=== PATIENT | female | born 1940 | race Caucasian/White ===

== ENCOUNTER 2018-07-22 11:39 | Observation (INO) | payer OTHER, MEDICARE ==
--- OUTSIDE RECORDS SUMMARY | 2018-07-22 12:08 | XMS REPORT ---
:1940 Author Organization [facility] Address [address] [place] [address] Dr. Bennett [address] [place] [id number] Care Team Providers Name Role Phone Unavailable Unavailable Unavailable Problems This patient has no known problems. Allergies, Adverse Reactions, Alerts This patient has no known allergies or adverse reactions. Medications This patient has no known medications.
[2018-07-22] MEDS ORDERED: GLUCAGON 1 MG/VIAL IM PRN (12:55)
[2018-07-22] MEDS ORDERED: D50W 25 GM/50 ML SYRINGE IV PRN (12:55)
[2018-07-22 13:00] LABS: Absolute Lymphocytes (CBC) 3.3 K/uL (0.7-4.9); Absolute Monocytes 0.9 K/uL (0.1-1.3); Absolute Neutrophil 8.4 K/uL (1.8-8.0); Basophils % 1.3 % (0-1.3); Eosinophils % 1.3 % (0-4.4); Hematocrit 37.8 % (36.0-45.0); Lymphocytes % 25.6 % (15.3-44.8)
[2018-07-22 13:20] LABS: Albumin 3.6 g/dL (3.4-5.0); Bilirubin Total 0.3 mg/dL (0.2-1.0); Potassium 3.8 mmol/L (3.5-5.1)
[2018-07-22] MEDS ORDERED: VANCOMYCIN 1.75 GM in NA CHLORIDE 0.9% 500 ML IVPB ONE (14:00)
[2018-07-22] MEDS: INSULIN -REGULAR HUMAN 50 UNIT/0.5 ML ML SQ SCH ×2 (18:43→21:29)
[2018-07-22] MEDS: GABAPENTIN 300 MG CAP PO SCH (21:00)
[2018-07-22] MEDS: OXcarbazepine 150 MG TAB PO SCH (21:00)
[2018-07-22] MEDS: levETIRAcetam 500 MG TAB PO SCH (21:00)
[2018-07-23 01:31] LABS: Urine Appearance CLEAR; Urine Bilirubin NEGATIVE (NEG); Urine Blood NEGATIVE (NEG); Urine Color YELLOW; Urine Glucose 3+ (NEG); Urine Protein NEGATIVE (NEG); Urine Urobilinogen 0.2 mg/dL (0.2-1.0); Urine pH 5.5 (5.0-7.0)
[2018-07-23 01:40] LABS: Urine Microscopic Reflex ORDER UMIC
[2018-07-23 02:21] LABS: Urine Bacteria >50 /HPF (<20); Urine Culture Reflex Order REFLEXED; Urine RBC NONE SEEN /HPF (NONE SEEN)
[2018-07-23] MEDS ORDERED: LEVOTHYROXINE SOD 0.05 MG TABLET PO SCH (06:30)
[2018-07-23] MEDS ORDERED: HOME MED 1 EA UNK (Dapagliflozin Propanediol [Farxiga] 10 MG) PO SCH (09:00)
[2018-07-23] MEDS: OXcarbazepine 150 MG TAB PO SCH ×2 (09:00→20:59)
[2018-07-23] MEDS: METOPROLOL XL 50 MG TAB PO SCH (09:00)
[2018-07-23] MEDS ORDERED: VALSARTAN 80 MG TAB PO SCH (09:00)
[2018-07-23] MEDS: GABAPENTIN 300 MG CAP PO SCH ×3 (09:00→21:00)
[2018-07-23] MEDS: levETIRAcetam 500 MG TAB PO SCH (09:00)
[2018-07-23] MEDS ORDERED: hydroCHLOROthiazide 25 MG TAB PO SCH (09:00)
[2018-07-23] MEDS ORDERED: VALSARTAN 160 MG TAB PO SCH (09:00)
[2018-07-23] MEDS ORDERED: ASPIRIN 81 MG CHEWABLE TABLET PO SCH (09:00)
[2018-07-23] MEDS ORDERED: [UNRECOGNIZED DRUG - OTHER] PO SCH (09:00)
[2018-07-23] MEDS: INSULIN -REGULAR HUMAN 50 UNIT/0.5 ML ML SQ SCH ×4 (09:18→20:58)
--- NOTE | 2018-07-23 10:34 | RAD REPORT ---
EXAM DESCRIPTION: RAD - Foot Right 3 View - 07/23/2018 10:26 am CLINICAL HISTORY: Right foot pain FINDINGS: No fracture or dislocation is seen No bony destructive lesions seen. Small calcaneal spur
[2018-07-23] MEDS ORDERED: VANCOMYCIN 1.5 GM in NA CHLORIDE 0.9% 500 ML IVPB SCH (14:00)
[2018-07-23] MEDS ORDERED: OXcarbazepine 150 MG TAB PO SCH (17:00)
[2018-07-23] MEDS: ENOXAPARIN 30 MG/0.3 ML SQ SCH (17:06)
--- NOTE | 2018-07-23 18:44 | HP ---
Date of Admission: 07/22/2018 Chief Complaint: Pain, foot. History Of Present Illness: A 77-year-old female was walking with a special shoe in [place]. She noticed that she was having pain and redness. She was brought to the office when she was found to have [id number] cellulitis of the big toe and distal foot. She is a diabetic, on medicati ons. In view of her high-risk status, the patient is admitted for IV antibiotic therapy. The patien t denied any history of fever, chills, rigors. Past Medical History: Positive for type 2 diabetes, neuropathy, seizure disorder, hypertension. Family History: Noncontributory. Personal History: No known allergies. Home Medicines: Please refer to the chart. Review of Systems: No chest pain. Physical Examination: General: Revealed a 77-year-old female, obese. Temperature normal. HEENT: Negative. Neck: Supple. JVD negative. Chest: Clear. Heart: Regular. Abdomen: Pendulous, nontender. Extremities: There is diffuse area of redness, blister formation, and cellulitis of the foot. Pedal pulse is normal. Laboratory Data: White count 12.9. Chem profile; random blood sugar of 207, creatinine 1.16. Assessment: 1.Cellulitis, foot. 2.Type 2 diabetes. 3.Neuropathy. 4.Hypertension. 5.Seizure disorder. Plan: IV vancomycin. Follow the patient clinically. ANTHONY/TEDDY Voice ID: [id number]
[2018-07-23] MEDS: KEPPRA 500 MG PO SCH (20:59)
[2018-07-24] MEDS: SYNTHROID 0.05 MG PO SCH (05:41)
[2018-07-24] MEDS: OXcarbazepine 150 MG TAB PO SCH ×2 (09:00→20:32)
[2018-07-24] MEDS: [UNRECOGNIZED DRUG - OTHER] PO SCH (09:00)
[2018-07-24] MEDS ORDERED: VANCOMYCIN 1.5 GM in NA CHLORIDE 0.9% 500 ML IVPB SCH (09:00)
[2018-07-24] MEDS: KEPPRA 500 MG PO SCH ×2 (09:00→20:32)
[2018-07-24] MEDS: METOPROLOL XL 50 MG TAB PO SCH (09:00)
[2018-07-24] MEDS: GABAPENTIN 300 MG CAP PO SCH ×2 (09:00→20:32)
[2018-07-24] MEDS: INSULIN -REGULAR HUMAN 50 UNIT/0.5 ML ML SQ SCH ×4 (09:48→21:28)
[2018-07-24] MEDS: ENOXAPARIN 30 MG/0.3 ML SQ SCH (17:00)
[2018-07-24] MEDS ORDERED: OXCARBAZEPINE 150 MG PO SCH (17:00)
--- NOTE | 2018-07-24 18:17 | PN ---
The patient is doing better. She is able to bend the big toe. The area of redness has diminished in size. The patient will have another dose of vancomycin, then she will be discharged on oral antibio tics. ANTHONY/TEDDY Voice ID: [id number] Report ID: [id number]
[2018-07-25] MEDS: SYNTHROID 0.05 MG PO SCH (05:51)
[2018-07-25] MEDS: GABAPENTIN 300 MG CAP PO SCH (09:00)
[2018-07-25] MEDS: KEPPRA 500 MG PO SCH (09:00)
[2018-07-25] MEDS: OXcarbazepine 150 MG TAB PO SCH ×2 (09:00→09:46)
[2018-07-25] MEDS: METOPROLOL XL 50 MG TAB PO SCH (09:00)
[2018-07-25] MEDS ORDERED: VANCOMYCIN 1.5 GM in NA CHLORIDE 0.9% 500 ML IVPB SCH (09:00)
[2018-07-25] MEDS: [UNRECOGNIZED DRUG - OTHER] PO SCH (09:00)
[2018-07-25] MEDS: INSULIN -REGULAR HUMAN 50 UNIT/0.5 ML ML SQ SCH ×2 (09:45→11:30)
--- NOTE | 2018-07-25 13:30 | RAD REPORT ---
EXAM DESCRIPTION: RAD - Chest Single View - 07/23/2018 5:26 am CLINICAL HISTORY: PICC line placement. COMPARISON: None. TECHNIQUE: AP Chest. FINDINGS: Right subclavian PICC line is in the upper aspect of the superior vena cava. No pneumothor ax Heart is normal in size. Mild aortic atherosclerosis. Normal pulmonary vascularity. Lungs and pleural spaces are clear. IMPRESSION: 1. Right subclavian PICC line is in the upper aspect of the superior vena cava. No pneum othorax. Electronically signed by: Terra Nunn DO 07/23/2018 5:32 AM CDT Due to temporary technical issues with the PACS/Fluency reporting system, reports are being signed by the in house radiologist as a courtesy to ensure prompt reporting. The interpreting radiologist is f ully responsible for the content of the report.
--- NOTE | 2018-08-03 05:24 | DS ---
Date of Discharge: 07/25/2018 Final Diagnoses: 1.Cellulitis of foot, right side. 2.Type 2 diabetes. 3.Peripheral neuropathy. 4.Hypertension. 5.Seizure disorder. Hospital Course: This patient was admitted because of extensive cellulitis of the foot and she had a lso type 2 diabetes. She was treated aggressively with repeat IV vancomycin. The patient was restar osmani on medication. She received insulin as per the blood sugars. The patient showed improvement of the redness, swelling as well as pain over the next 3 days and she was discharged home on clindamycin to have outpatient followup. Laboratory Data: Please refer to the chart. ANTHONY/TEDDY Voice ID: [id number] Report ID: [id number]
== END 2018-07-25 13:40 | disposition home or self-care (01) ==
LOC: INTOOBSV 12:02 → 4TH 12:02 → UNDOADMIN 12:02
PROVIDERS: ADMIT Internal Medicine; ATTEND Internal Medicine
PROC: 02HV33Z Insertion of Infusion Device into Superior Vena Cava, Percutaneous Approach (ICD-10-PCS; principal; 2018-07-23)
DX: L03.115 Cellulitis of right lower limb (principal); E11.40 Type 2 diabetes mellitus with diabetic neuropathy, unspecified; I10 Essential (primary) hypertension; G40.909 Epilepsy, unspecified, not intractable, without status epilepticus; I70.0 Atherosclerosis of aorta; M77.31 Calcaneal spur, right foot
CPT/HCPCS: 36569; 96365 ×2; 96367 ×2; 87088; 85025; 87086; 36415 ×2; 82962 ×12; 80202; 80053; 71045; 73630; G0379; J1650; G0378; 81003; 81015

== ENCOUNTER 2021-02-14 11:14 | Observation (INO) | payer OTHER, MEDICARE ==
--- OUTSIDE RECORDS SUMMARY | 2021-02-14 11:28 | XMS REPORT | Continuity of Care Document ---
:[address] [facility] t Address [address] [place] [address] Care Team Providers Name Role Phone Ruth Ann CUELLAR, R Primary Care Physician Bri CHERRY Attending Clinician Unavailable Bri CHERRY Attending Clinician Unavailable MARCOS Attending Clinician Unavailable Yong CUELLAR Attending Clinician [facility] Attending Clinician Unavailable YONG Attending Clinician Unavailable KIMBERLEY Attending Clinician Unavailable Jeannie LOCK Attending Clinician Unavailable Birgit MARCANO Attending Clinician Unavailable Kenna BRANCH Attending Clinician Loren Whipple MD Attending Clinician Brandi TAMAYO Attending Clinician Chino CUELLAR, K.H. Attending Clinician CHINO, K.H. Attending Clinician Unavailable Valentin Christie DO Attending Clinician Marcos CUELLAR Attending Clinician Doctor Unassigned, Name Attending Clinician Unavailable Jeannie Lock MD Attending Clinician Loren Whipple MD Admitting Clinician Payers Payer Name Policy Type Policy Number Effective Date Expiration Date S edd MEDICARE PART A \\T\\ [id number] 2006 B 00:00:00 [facility] [id number] 2018 MEDICARE SUPPLEMENT 00:00:00 Problems Condition Condition Condition Status Onset Resolution Last Treating Co mments Source Name Details Category Date Date Treatment Clinician Date Atrial Atrial Disease Active [facility] fibrillati fibrillati 10-07 it y of on with on with 00:00: [place] RVR RVR 00 Medical Branch No known No known Disease Unive rs active active ity of problems problems [facility] Allergies, Adverse Reactions, Alerts Allergy Allergy Status Severity Reaction(s) Onset Inactive Treating Comm ents Source Name Type Date Date Clinician Celecoxi Propensi Active Itching Unive rs b ty to 08-06 ity of adverse 00:00: [place] reaction 00 Medical s Branch CELECOXI DRUG Active ITCHING Univers B INGREDI 08-06 ity of 00:00: [place] 00 Medical Branch NO KNOWN Drug Active Univers ALLERGIE Class ity of S [facility] Social History Social Habit Start Date Stop Date Quantity Comments Source Exposure to Not sure [facility] SARS-CoV-2 (event) [facility] Tobacco use and 2020-10-30 2020-10-30 Never used [facility] exposure 00:00:00 00:00:00 [facility] Sex Assigned At [birth year] [facility] 00:00:00 00:00:00 [facility] Smoking Status Start Date Stop Date Source Unknown if ever smoked [facility] Never smoker [facility] Former smoker 2020-10-02 00:00:00 2020-10-02 00:00:00 [facility] Medications Ordered Filled Start Stop Current Ordering Indication Dosage Frequency Signature Comments Components Source Medication Medication Date Date Medication? Clinician (SIG) Name Name magnesium Yes [id number] 400mg Take 400 Univers oxide 400 8-27 mg by ity of mg 00:00: mouth 2 [place] magnesium 00 (two) Medical Tab times Branch daily. magnesium Yes [id number] 400mg Take 400 [facility] oxide 400 8-27 mg by ity of mg 00:00: mouth 2 [place] magnesium 00 (two) Medical Tab times Branch daily. metoprolol Yes [id number] 25mg Take 1 [place] tartrate 25 8-25 tablet by ity of mg tablet 00:00: mouth 2 [place] 00 (two) Medical times Branch daily. metoprolol Yes [id number] 25mg Take 1 [place] tartrate 25 8-25 tablet by ity of mg tablet 00:00: mouth 2 [place] 00 (two) Medical times Branch daily. metoprolol 0 Yes [id number] 25mg Take 1 [place] tartrate 25 8-25 tablet by ity of mg tablet 00:00: mouth 2 [place] 00 (two) Medical times Branch daily. metoprolol 0 Yes [id number] 25mg Take 1 [place] tartrate 25 8-25 tablet by ity of mg tablet 00:00: mouth 2 [place] 00 (two) Medical times Branch daily. metoprolol 0 Yes [id number] 25mg Take 1 [place] tartrate 25 8-25 tablet by ity of mg tablet 00:00: mouth 2 [place] 00 (two) Medical times Branch daily. metoprolol 0 Yes [id number] 25mg Take 1 [place] tartrate 25 8-25 tablet by ity of mg tablet 00:00: mouth 2 [place] 00 (two) Medical times Branch daily. telmisartan Yes 1{tbl} Take 1 [place] -hydrochlor 8-06 tablet by ity of othiazide 00:22: mouth [place] 80-25 mg 32 daily. Medical per tablet Branch glimepiride Yes 4mg Take 4 mg U nivers 4 mg tablet 806 by mouth 2 it y of 00:22: (two) [place] 32 times Medical daily. Branch OXcarbazepi Yes Take by Un [place] ne 150 mg 8-06 mouth 2 ity of tablet 00:22: (two) [place] 32 times Medical daily. Branch levETIRAcet Yes 500mg Take 500 U nivers am 500 mg 8-06 mg by ity of tablet 00:22: mouth 2 [place] [address] (two) Medical times Branch daily. aspirin 81 2020-0 Yes 81mg Take 81 mg U nivers mg chewable 8-06 by mouth ity of tablet 00:22: daily. [place] [address] Medical Branch multivit-mi 0 Yes Take by Un [place] nerals/foli 8-06 mouth. ity of c acid 00:22: [place] ([facility] Medical VITAMINTS Branch ORAL) metformin 2020-0 Yes Take by Univ ers HCl 8-06 mouth. ity of (METFORMIN 00:22: [place] ORAL) Medical Branch gabapentin 2021-0 Yes Take by Uni vers ER 300 mg 8-06 mouth ity of tablet, 00:22: daily. [place] [address] Medical release 24 Branch hr iron Yes Take by [facility] bis-gly/FA/ 8- mouth. ity of C/B12/Ca/g[place] 00:22: [place] cc (IRON 32 Medical / ORAL) Branch levothyroxi Yes 50ug Take 50 Uni vers ne 50 mcg 8- mcg by ity of tablet 00:22: mouth [place] [address] every Medical morning. Branch taking telmisartan Yes 1{tbl} Take 1 [place] -hydrochlor 8- tablet by ity of othiazide 00:22: mouth [place] 80-25 mg 32 daily. Medical per tablet Branch glimepiride Yes 4mg Take 4 mg U nivers 4 mg tablet 8 by mouth 2 it y of 00:22: (two) [place] 32 times Medical daily. Branch OXcarbazepi Yes Take by Un [place] ne 150 mg 8- mouth 2 ity of tablet 00:22: (two) [place] [address] times Medical daily. Branch levETIRAcet Yes 500mg Take 500 U nivers am 500 mg 8- mg by ity of tablet 00:22: mouth 2 [place] [address] (two) Medical times Branch daily. aspirin 81 Yes 81mg Take 81 mg U nivers mg chewable 8-06 by mouth ity of tablet 00:22: daily. [address] Branch multivit-mi Yes Take by Un [place] nerals/foli 8- mouth. ity of c acid 00:22: [place] ([place] [address] Medical VITAMINTS Branch ORAL) metformin Yes Take by Univ ers HCl 8-06 mouth. ity of (METFORMIN 00:22: [place] ORAL) Medical Branch gabapentin Yes Take by Uni vers ER 300 mg 8-06 mouth ity of tablet, 00:22: daily. [place] [address] Medical release 24 Branch hr iron Yes Take by [facility] bis-gly/FA/ 8- mouth. ity of C/B12/Ca/[place] 00:22: [place] cc (IRON 32 Medical 25/09 ORAL) Branch levothyroxi Yes 50ug Take 50 Uni vers ne 50 mcg 8-06 mcg by ity of tablet 00:22: mouth [place] [address] every Medical morning. Branch taking telmisartan Yes 1{tbl} Take 1 [place] -hydrochlor 8-06 tablet by ity of othiazide 00:22: mouth [place] 80-25 mg 32 daily. Medical per tablet Branch glimepiride Yes 4mg Take 4 mg U nivers 4 mg tablet 8-06 by mouth 2 it y of 00:22: (two) [place] 32 times Medical daily. Branch OXcarbazepi Yes Take by Un [place] ne 150 mg 8-06 mouth 2 ity of tablet 00:22: (two) [place] [address] times Medical daily. Branch levETIRAcet Yes 500mg Take 500 U nivers am 500 mg 8-06 mg by ity of tablet 00:22: mouth 2 [place] [address] (two) Medical times Branch daily. aspirin 81 Yes 81mg Take 81 mg U nivers mg chewable 806 by mouth ity of tablet 00:22: daily. [place] [address] Medical Branch multivit-mi Yes Take by Un [place] nerals/foli 8-06 mouth. ity of c acid 00:22: [place] [facility] Branch ORAL) metformin Yes Take by Univ ers HCl 8-06 mouth. ity of (METFORMIN 00:22: [place] ORAL) Medical Branch gabapentin Yes Take by Uni vers ER 300 mg 8-06 mouth ity of tablet, 00:22: daily. [place] extended Medical release 24 Branch hr iron Yes Take by Univers bis-gly/FA/ 8-06 mouth. ity of C/B12/Ca/[place] 00:22: [place] cc (IRON Medical 25/09 ORAL) Branch levothyroxi Yes 50ug Take 50 Uni vers ne 50 mcg 8-06 mcg by ity of tablet 00:22: mouth [place] [address] every Medical morning. Branch taking telmisartan Yes 1{tbl} Take 1 [place] -hydrochlor 8-06 tablet by ity of othiazide 00:22: mouth [place] 80-25 mg 32 daily. Medical per tablet Branch glimepiride Yes 4mg Take 4 mg U nivers 4 mg tablet 806 by mouth 2 it y of 00:22: (two) [place] 32 times Medical daily. Branch OXcarbazepi Yes Take by Un [place] ne 150 mg 8-06 mouth 2 ity of tablet 00:22: (two) [place] 32 times Medical daily. Branch levETIRAcet Yes 500mg Take 500 U nivers am 500 mg 8- mg by ity of tablet 00:22: mouth 2 [place] 32 (two) Medical times Branch daily. aspirin 81 0 Yes 81mg Take 81 mg U nivers mg chewable 806 by mouth ity of tablet 00:22: daily. [place] [address] Medical Branch multivit-mi 0 Yes Take by Un [place] nerals/foli 8-06 mouth. ity of c acid 00:22: [place] ([facility] Medical VITAMINTS Branch ORAL) metformin Yes Take by Univ ers HCl 8- mouth. ity of (METFORMIN 00:22: [place] ORAL) Medical Branch gabapentin Yes Take by Uni vers ER 300 mg 8-06 mouth ity of tablet, 00:22: daily. [place] extended Medical release 24 Branch hr iron 0 Yes Take by Univers bis-gly/FA/ 8 mouth. ity of C/B12/Ca/[place] 00:22: [place] cc (IRON Medical / ORAL) Branch levothyroxi Yes 50ug Take 50 Uni vers ne 50 mcg 8 mcg by ity of tablet 00:22: mouth [place] [address] every Medical morning. Branch taking telmisartan 0 Yes 1{tbl} Take 1 [place] -hydrochlor 8- tablet by ity of othiazide 00:22: mouth [place] 80-25 mg 32 daily. Medical per tablet Branch glimepiride Yes 4mg Take 4 mg U nivers 4 mg tablet 8 by mouth 2 it y of 00:22: (two) [place] 32 times Medical daily. Branch OXcarbazepi Yes Take by Un [place] ne 150 mg 8-06 mouth 2 ity of tablet 00:22: (two) [place] 32 times Medical daily. Branch levETIRAcet 2021-0 Yes 500mg Take 500 U nivers am 500 mg 8-06 mg by ity of tablet 00:22: mouth 2 [place] [address] (two) Medical times Branch daily. aspirin 81 0 Yes 81mg Take 81 mg U nivers mg chewable 8-06 by mouth ity of tablet 00:22: daily. [place] [address] Medical Branch multivit-mi 0 Yes Take by Un [place] nerals/foli 8-06 mouth. ity of c acid 00:22: [place] ([facility] Medical VITAMINTS Branch ORAL) metformin 0 Yes Take by Univ ers HCl 8-06 mouth. ity of (METFORMIN 00:22: [place] ORAL) Medical Branch gabapentin 0 Yes Take by Uni vers ER 300 mg 8-06 mouth ity of tablet, 00:22: daily. [place] [address] Medical release 24 Branch hr iron Yes Take by [facility] bis-gly/FA/ 8-06 mouth. ity of C/B12/Ca/[place] 00:22: [place] cc (IRON Medical 25/09 ORAL) Branch levothyroxi 0 Yes 50ug Take 50 Uni vers ne 50 mcg 8-06 mcg by ity of tablet 00:22: mouth [place] [address] every Medical morning. Branch taking telmisartan 0 Yes 1{tbl} Take 1 Un [place] -hydrochlor 8-06 tablet by ity of othiazide 00:22: mouth [place] 80-25 mg 32 daily. Medical per tablet Branch glimepiride Yes 4mg Take 4 mg U nivers 4 mg tablet 8 by mouth 2 it y of 00:22: (two) [place] [address] times Medical daily. Branch OXcarbazepi 0 Yes Take by Un [place] ne 150 mg 8-06 mouth 2 ity of tablet 00:22: (two) [place] [address] times Medical daily. Branch levETIRAcet 0 Yes 500mg Take 500 U nivers am 500 mg 8-06 mg by ity of tablet 00:22: mouth 2 [place] [address] (two) Medical times Branch daily. aspirin 81 0 Yes 81mg Take 81 mg U nivers mg chewable 8-06 by mouth ity of tablet 00:22: daily. [place] [address] Medical Branch multivit-mi 0 Yes Take by Un [place] nerals/foli 8-06 mouth. ity of c acid 00:22: [place] ([place] [address] Medical VITAMINTS Branch ORAL) metformin 0 Yes Take by [facility] ers HCl 8-06 mouth. ity of (METFORMIN 00:22: [place] ORAL) Medical Branch gabapentin 0 Yes Take by Uni vers ER 300 mg 8-06 mouth ity of tablet, 00:22: daily. [place] [address] Medical release 24 Branch hr iron 0 Yes Take by [facility] bis-gly/FA/ 8- mouth. ity of C/B12/Ca/[place] 00:22: [place] cc (IRON Medical / ORAL) Branch levothyroxi 0 Yes 50ug Take 50 Uni vers ne 50 mcg 8- mcg by ity of tablet 00:22: mouth [place] [address] every Medical morning. Branch taking telmisartan 0 Yes 1{tbl} Take 1 [place] -hydrochlor 8- tablet by ity of othiazide 00:22: mouth [place] 80-25 mg 32 daily. Medical per tablet Branch glimepiride 0 Yes 4mg Take 4 mg U nivers 4 mg tablet 8 by mouth 2 it y of 00:22: (two) [place] 32 times Medical daily. Branch OXcarbazepi 0 Yes Take by Un [place] ne 150 mg 8-06 mouth 2 ity of tablet 00:22: (two) [place] 32 times Medical daily. Branch levETIRAcet 0 Yes 500mg Take 500 U nivers am 500 mg 8- mg by ity of tablet 00:22: mouth 2 [place] 32 (two) Medical times Branch daily. aspirin 81 0 Yes 81mg Take 81 mg U nivers mg chewable 8-06 by mouth ity of tablet 00:22: daily. [place] [address] Medical Branch multivit-mi 0 Yes Take by Un [place] nerals/foli 8-06 mouth. ity of c acid 00:22: [place] ([place] [address] Medical VITAMINTS Branch ORAL) metformin 2020-0 Yes Take by [facility] ers HCl 8-06 mouth. ity of (METFORMIN 00:22: [place] ORAL) Medical Branch gabapentin 2020-0 Yes Take by Uni vers ER 300 mg 8-06 mouth ity of tablet, 00:22: daily. [place] [address] Medical release 24 Branch hr iron 0 Yes Take by [facility] bis-gly/FA/ 8-06 mouth. ity of C/B12/Ca/[place] 00:22: [place] cc (IRON 32 Medical / ORAL) Branch levothyroxi 0 Yes 50ug Take 50 Uni vers ne 50 mcg 8-06 mcg by ity of tablet 00:22: mouth [place] [address] every Medical morning. Branch taking telmisartan 0 Yes 1{tbl} Take 1 Un [place] -hydrochlor 8-06 tablet by ity of othiazide 00:22: mouth [place] 80-25 mg 32 daily. Medical per tablet Branch glimepiride 0 Yes 4mg Take 4 mg U nivers 4 mg tablet 806 by mouth 2 it y of 00:22: (two) [place] [address] times Medical daily. Branch OXcarbazepi 0 Yes Take by Un [place] ne 150 mg 8-06 mouth 2 ity of tablet 00:22: (two) [place] [address] times Medical daily. Branch levETIRAcet 0 Yes 500mg Take 500 U nivers am 500 mg 8-06 mg by ity of tablet 00:22: mouth 2 [place] [address] (two) Medical times Branch daily. aspirin 81 0 Yes 81mg Take 81 mg U nivers mg chewable 8-06 by mouth ity of tablet 00:22: daily. [address] Branch multivit-mi 0 Yes Take by Un [place] nerals/foli 8-06 mouth. ity of c acid 00:22: [place] ([facility] Medical VITAMINTS Branch ORAL) metformin 0 Yes Take by [facility] ers HCl 8-06 mouth. ity of (METFORMIN 00:22: [place] ORAL) Medical Branch gabapentin 0 Yes Take by Uni vers ER 300 mg 8-06 mouth ity of tablet, 00:22: daily. [place] [address] Medical release 24 Branch hr iron 0 Yes Take by [facility] bis-gly/FA/ 8-06 mouth. ity of C/B12/Ca/[place] 00:22: [place] cc (IRON 32 Medical /7 ORAL) Branch levothyroxi 0 Yes 50ug Take 50 Uni vers ne 50 mcg 8-06 mcg by ity of tablet 00:22: mouth [place] [address] every Medical morning. Branch taking telmisartan Yes 1{tbl} Take 1 Un [place] -hydrochlor 8-06 tablet by ity of othiazide 00:22: mouth [place] 80-25 mg 32 daily. Medical per tablet Branch glimepiride Yes 4mg Take 4 mg U nivers 4 mg tablet 8-06 by mouth 2 it y of 00:22: (two) [place] 32 times Medical daily. Branch OXcarbazepi Yes Take by Un [place] ne 150 mg 8-06 mouth 2 ity of tablet 00:22: (two) [place] [address] times Medical daily. Branch levETIRAcet Yes 500mg Take 500 U nivers am 500 mg 8- mg by ity of tablet 00:22: mouth 2 [place] [address] (two) Medical times Branch daily. aspirin 81 Yes 81mg Take 81 mg U nivers mg chewable 806 by mouth ity of tablet 00:22: daily. [place] [address] Medical Branch multivit-mi Yes Take by Un [place] nerals/foli 8-06 mouth. ity of c acid 00:22: [place] ([facility] Medical VITAMINTS Branch ORAL) metformin Yes Take by Univ ers HCl 8-06 mouth. ity of (METFORMIN 00:22: [place] ORAL) Medical Branch gabapentin 0 Yes Take by Uni vers ER 300 mg 8-06 mouth ity of tablet, 00:22: daily. [place] extended Medical release 24 Branch hr iron Yes Take by Univers bis-gly/FA/ 8- mouth. ity of C/B12/Ca/[place] 00:22: [place] cc (IRON Medical 25/09 ORAL) Branch levothyroxi Yes 50ug Take 50 Uni vers ne 50 mcg 8-06 mcg by ity of tablet 00:22: mouth [place] [address] every Medical morning. Branch taking telmisartan Yes 1{tbl} Take 1 Un [place] -hydrochlor 8-06 tablet by ity of othiazide 00:22: mouth [place] 80-25 mg 32 daily. Medical per tablet Branch glimepiride Yes 4mg Take 4 mg U nivers 4 mg tablet 806 by mouth 2 it y of 00:22: (two) [place] [address] times Medical daily. Branch OXcarbazepi 0 Yes Take by Un [place] ne 150 mg 8- mouth 2 ity of tablet 00:22: (two) [place] [address] times Medical daily. Branch levETIRAcet 0 Yes 500mg Take 500 U nivers am 500 mg 8-06 mg by ity of tablet 00:22: mouth 2 [place] [address] (two) Medical times Branch daily. aspirin 81 0 Yes 81mg Take 81 mg U nivers mg chewable 8-06 by mouth ity of tablet 00:22: daily. [place] [address] Medical Branch multivit-mi Yes Take by Un [place] nerals/foli 8- mouth. ity of c acid 00:22: [place] ([place] [address] Medical VITAMINTS Branch ORAL) metformin Yes Take by Univ ers HCl 8-06 mouth. ity of (METFORMIN 00:22: [place] ORAL) Medical Branch gabapentin Yes Take by Uni vers ER 300 mg 8- mouth ity of tablet, 00:22: daily. [place] [address] Medical release 24 Branch hr iron Yes Take by Univers bis-gly/FA/ 8 mouth. ity of C/B12/Ca/[place] 00:22: [place] cc (IRON [address] [place] [address] 25/09 ORAL) Branch levothyroxi 0 Yes 50ug Take 50 Uni vers ne 50 mcg 8- mcg by ity of tablet 00:22: mouth [place] [address] every Medical morning. Branch taking hydroCHLORO 0 Yes [id number] 25mg Take 2 Univers thiazide 8-06 capsules ity of 12.5 mg 00:00: by mouth [place] capsule 00 daily. Medical Branch hydroCHLORO 0 Yes [id number] 25mg Take 2 Univers thiazide 8-06 capsules ity of 12.5 mg 00:00: by mouth [place] capsule 00 daily. Medical Branch hydroCHLORO 2020-0 Yes [id number] 25mg Take 2 Univers thiazide 8-06 capsules ity of 12.5 mg 00:00: by mouth [place] capsule 00 daily. Medical Branch hydroCHLORO 2020-0 Yes [id number] 25mg Take 2 Univers thiazide 8-06 capsules ity of 12.5 mg 00:00: by mouth [place] capsule 00 daily. Medical Branch hydroCHLORO Yes [id number] 25mg Take 2 Univers thiazide 8-06 capsules ity of 12.5 mg 00:00: by mouth [place] capsule [address] [facility] hydroCHLORO 0 Yes [id number] 25mg Take 2 Univers thiazide 8-06 capsules ity of 12.5 mg 00:00: by mouth [place] capsule [address] [facility] hydroCHLORO Yes [id number] 25mg Take 2 Univers thiazide 8-06 capsules ity of 12.5 mg 00:00: by mouth [place] capsule [address] [facility] hydroCHLORO Yes [id number] 25mg Take 2 Univers thiazide 8-06 capsules ity of 12.5 mg 00:00: by mouth [place] capsule [address] [facility] hydroCHLORO Yes [id number] 25mg Take 2 Univers thiazide 8-06 capsules ity of 12.5 mg 00:00: by mouth [place] capsule [address] [facility] hydroCHLORO Yes [id number] 25mg Take 2 Univers thiazide 8-06 capsules ity of 12.5 mg 00:00: by mouth [place] capsule [address] [facility] metoprolol Yes 12.5mg 12.5 mg, U nivers tartrate 8-05 Oral, BID, ity o f (LOPRESSOR) 01:00: First dose [place] tablet 12.5 00 on Wed Medica l mg 10/09/20 at [place] 1999, Until Discontinu ed, Routine metoprolol Yes [id number] 12.5mg Take 0.5 Univers tartrate 25 8-05 tablets by it y of mg tablet 00:00: mouth (two) [facility] daily. metoprolol Yes [id number] 12.5mg Take 0.5 Univers tartrate 25 8-05 tablets by it y of mg tablet 00:00: mouth (two) [facility] daily. metoprolol 0 Yes [id number] 12.5mg Take 0.5 Univers tartrate 25 8-05 tablets by it y of mg tablet 00:00: mouth (two) [facility] daily. metoprolol 0 Yes [id number] 12.5mg Take 0.5 Univers tartrate 25 8-05 tablets by it y of mg tablet 00:00: mouth 2 [place] 00 (two) Medical times Branch daily. metoprolol 2020- No [id number] 12.5mg Take 0.5 Univers tartrate 25 10-1025 tablets by i ty of mg tablet 00:00: 00:00 mouth 2 [place] 00 :[place] (two) Medical times Branch daily. metoprolol 2020- No [id number] 12.5mg Take 0.5 Univers tartrate 25 10-1025 tablets by i ty of mg tablet 00:00: 00:00 mouth 2 [place] 00 :[place] (two) Medical times Branch daily. metoprolol 2020- No [id number] 12.5mg Take 0.5 Univers tartrate 25 10-10 tablets by i ty of mg tablet 00:00: 00:00 mouth 2 [place] 00 :[place] (two) Medical times Branch daily. metoprolol 2020- No [id number] 12.5mg Take 0.5 Univers tartrate 25 10-1025 tablets by i ty of mg tablet 00:00: 00:00 mouth 2 [place] 00 :00 (two) Medical times Branch daily. levothyroxi Yes 50ug Take 50 Uni vers ne 50 mcg 10-09 mcg by ity of tablet 13:21: mouth [place] 20 every Medical morning. Branch taking metoprolol No 25mg 25 mg, Univ ers tartrate 10-09 Oral, ity of (LOPRESSOR) 03:45: 03:12 ONCE, 1 [place] tablet 25 00 :00 dose, [facility] Medic al mg 10/08/20 at Branch 2245, Routine metoprolol No 5mg 5 mg, Unive rs (LOPRESSOR) 10-09 Intravenou i ty of injection 5 02:36: 03:09 s, ONCE, 1 [place] mg 00 :00 dose, [facility] 10/08/20 at Branch 2145, Routine levETIRAcet Yes 1500mg 1,500 mg, Univers am (KEPPRA) 10-09 Oral, BID, it y of tablet 01:00: First dose [place] 1,500 mg 00 (after Medical last Branch modificati on) on [facility] 10/08/20 at 1999, Until Discontinu ed, Routine OXcarbazepi Yes 300mg 300 mg, Un [place] ne 10-09 Oral, QPM ity of (TRILEPTAL) 01:00: AT 1999, [place] tablet 300 00 First dose Med ical mg on [facility] 10/08/20 at 1999, Until Discontinu ed, Routine metoprolol 2020- No 5mg 5 mg, Slow Univers (LOPRESSOR) 10-08 IV Push, ity of injection 5 21:30: 20:32 ONCE, 1 [place] mg 00 :00 dose, [facility] 10/08/20 at Branch 1630, Routine magnesium 2020- No 4g 4 g, IV Univ ers sulfate in 10-08 Piggyback, it y of water 4 18:15: 19:03 ONCE, 1 [place] gram/50 mL 00 :00 dose, [facility] eloy (8 %) IV 10/08/20 at [place] Piggyback 4 1315, g Routine KCL 2020- No 40meq 40 mEq, Univers (KLOR-CON 10-08 Oral, ity of M20) tablet 17:30: 19:03 ONCE, 1 [place] 40 mEq 00 :00 dose, [facility] 10/08/20 at Branch 1230, Routine levETIRAcet 2020- No 1000mg 1,000 mg, Univers am (KEPPRA) 10-08 Oral, ONCE i ty of tablet 15:54: 16:06 NOW, 1 [place] 1,000 [facility] 00 :[facility] Branch [facility], Routine OXcarbazepi Yes 150mg 150 mg, Un [place] ne 10-08 Oral, ity of (TRILEPTAL) 15:45: DAILY, [place] tablet 150 00 First dose Med ical mg on [facility] 10/08/20 at 1045, Until Discontinu ed, Routine hydroCHLORO Yes 25mg 25 mg, Univ ers thiazide 10-08 Oral, ity of (ESIDRIX) 14:00: DAILY, [place] capsule 25 00 First dose Med ical mg on Wed10/08/20 at 0900, Until Discontinu ed, Routine enoxaparin Yes 40mg 40 mg, Unive rs (LOVENOX) 10-08 Subcutaneo ity of injection 14:00: [place], DAILY, [place] 40 mg 00 First dose Medical on Wed [place] 10/08/20 at 0900, Until Discontinu ed, Routine furosemide Yes 20mg 20 mg, Unive rs (LASIX) 10-08 Oral, ity of tablet 20 14:00: DAILY, [place] mg 00 First dose Medical on 10/08/20 at 0900, Until Discontinu ed, Routine aspirin Yes 81mg 81 mg, Univers chewable 10-08 Oral, ity of tablet 81 14:00: DAILY, [place] mg 00 First dose Medical on Wed [place] 10/08/20 at 0900, Until Discontinu ed, Routine NaCl 0.9% Yes [id number] 1000mL at 42 U nivers (NS) IV 10-08 mL/hr, ity of infusion 13:00: Intravenou Ace as 1,000 mL 00 s, Medical CONTINUOUS Branch , Starting Wed10/08/20 at 0800, Until Discontinu ed, Routine
TKO rate. Start at 0700 on day of procedure< br> telmisartan Yes 1{tbl} Take 1 [place] -hydrochlor 10-08 tablet by ity of othiazide 03:39: mouth [place] 80-25 mg 03 daily. Medical per tablet Branch glimepiride Yes 4mg Take 4 mg U nivers 4 mg tablet 10-08 by mouth 2 it y of 03:39: (two) [place] 03 times Medical daily. Branch OXcarbazepi Yes Take by Un [place] ne 150 mg 803 mouth 2 ity of tablet 03:39: (two) [place] 03 times Medical daily. Branch levETIRAcet Yes 500mg Take 500 U nivers am 500 mg 8- mg by ity of tablet 03:39: mouth 2 [place] 03 (two) Medical times Branch daily. aspirin 81 Yes 81mg Take 81 mg U nivers mg chewable 10-08 by mouth ity of tablet 03:39: daily. [place] 03 [facility] Branch multivit-mi Yes Take by rowena nerals/foli 10-08 mouth. ity of c acid 03:39: [place] (CENTRUM 03 Medical VITAMINTS Branch ORAL) metformin Yes Take by [facility] ers HCl 10-08 mouth. ity of (METFORMIN 03:39: [place] ORAL) 03 Medical Branch gabapentin Yes Take by [facility] vers ER 300 mg 10-08 mouth ity of tablet, 03:39: daily. [place] extended 03 Medical release 24 Branch hr iron Yes Take by [facility] bis-gly/FA/ 10-08 mouth. ity of C/B12/Ca/[place] 03:39: [place] cc (IRON [address] [place] [address] 25/09 ORAL) Branch Sliding Yes Subcutaneo [facility] ers Scale 10-08 us, TID ity of Insulin - 02:00: MEALS+HS, [place] as Lispro 00 First dose Medical (HumaLOG) + on [facility] 10/07/20 at Testing 2100, Until Discontinu ed, Routine atorvastati Yes 40mg 40 mg, [facility] ers n (LIPITOR) 10-08 Oral, QHS, it y of tablet 40 02:00: First dose [place] mg 00 on [facility] 10/07/20 at Branch 2100, Until Discontinu ed, Routine levETIRAcet 2020- No 500mg 500 mg, U nivers am (KEPPRA) 10-08 08-03 Oral, BID, i ty of tablet 500 01:00: 15:54 First dose [place] mg 00 :54 on [facility] 10/07/20 at Branch 2000, Until Discontinu ed, Routine ondansetron Yes 4mg 4 mg, Slow Univers (ZOFRAN 10-07 IV Push, ity of (PF)) 23:19: Q6HPRN, [place] injection 4 47 Starting Medi eloy mg [facility] 10/07/20 Branch at 1819, Until Discontinu ed, Routine, Nausea and Vomiting (N/V) acetaminoph Yes 650mg 650 mg, Un rowena en 10-07 Oral, ity of (TYLENOL) 23:19: Q6HPRN, [place] tablet 650 40 Starting Medic al mg 10/07/20 Branch at 1819, Until Discontinu ed, Routine, Pain (scale 1-3) metoprolol No 5mg 5 mg, Slow Univers (LOPRESSOR) 10-07 IV Push, ity of injection 5 21:45: 21:45 ONCE, 1 [place] mg 00 :00 dose, [facility] 10/07/20 at Branch 1645, EDUAR aspirin 2020-0 2020- No 324mg 324 mg, Unive rs chewable 10-07 Oral, ity of tablet 324 21:45: 21:45 ONCE, 1 [place] mg 00 :00 dose, [facility] 10/07/20 at Branch 1645, STAT telmisartan Yes 1{tbl} Take 1 Un rowena -hydrochlor 10-07 tablet by ity of othiazide 20:39: mouth [place] 80-25 mg 51 daily. Medical per tablet Branch glimepiride Yes 4mg Take 4 mg U nivers 4 mg tablet 10-07 by mouth 2 it y of 20:39: (two) [place] [address] times Medical daily. Branch OXcarbazepi 0 Yes Take by Un rowena ne 150 mg 10-07 mouth 2 ity of tablet 20:39: (two) [place] [address] times Medical daily. Branch levETIRAcet 0 Yes 500mg Take 500 U nivers am 500 mg 10-07 mg by ity of tablet 20:39: mouth 2 [place] [address] (two) Medical times [place] daily. aspirin 81 0 Yes 81mg Take 81 mg U nivers mg chewable 10-07 by mouth ity of tablet 20:39: daily. [place] [address] Medical Branch multivit-mi 0 Yes Take by Un rowena nerals/foli 10-07 mouth. ity of c acid 20:39: [place] (CENTRUM Medical VITAMINTS Branch ORAL) metformin 0 Yes Take by Univ ers HCl 10-07 mouth. ity of (METFORMIN 20:39: [place] ORAL) 51 Medical Branch gabapentin 0 Yes Take by Uni vers ER 300 mg 10-07 mouth ity of tablet, 20:39: daily. [place] [address] Medical release 24 Branch hr iron 0 Yes Take by [facility] bis-gly/FA/ 8- mouth. ity of C/B12/Ca/g[place]rie 20:39: [place] cc (IRON 51 Medical 21/ ORAL) Branch telmisartan Yes 1{tbl} Take 1 Un rowena -hydrochlor 8- tablet by ity of othiazide 20:39: mouth [place] 80-25 mg 51 daily. Medical per tablet Branch glimepiride Yes 4mg Take 4 mg U nivers 4 mg tablet 8- by mouth 2 it y of 20:39: (two) [place] [address] times Medical daily. Branch OXcarbazepi Yes Take by Un rowena ne 150 mg 8- mouth 2 ity of tablet 20:39: (two) [place] [address] times Medical daily. Branch levETIRAcet Yes 500mg Take 500 U nivers am 500 mg 8- mg by ity of tablet 20:39: mouth 2 [place] [address] (two) Medical times Branch daily. aspirin 81 Yes 81mg Take 81 mg U nivers mg chewable 10-07 by mouth ity of tablet 20:39: daily. [place] [address] Medical Branch multivit-mi Yes Take by Un rowena nerals/foli 8- mouth. ity of c acid 20:39: [place] [facility] ORAL) metformin Yes Take by [facility] ers HCl 8- mouth. ity of (METFORMIN 20:39: [place] ORAL) Medical Branch gabapentin Yes Take by Uni vers ER 300 mg 10-07 mouth ity of tablet, 20:39: daily. [place] extended 51 Medical release 24 Branch hr iron Yes Take by [facility] bis-gly/FA/ 8- mouth. ity of C/B12/Ca/g[place]rie 20:39: [facility] (IRON 51 Medical 21/7 ORAL) Branch telmisartan Yes 1{tbl} Take 1 Un rowena -hydrochlor 8- tablet by ity of othiazide 20:39: mouth [place] 80-25 mg 51 daily. Medical per tablet Branch glimepiride Yes 4mg Take 4 mg U nivers 4 mg tablet 10-07 by mouth 2 it y of 20:39: (two) [place] [address] times Medical daily. Branch OXcarbazepi Yes Take by Un [place] ne 150 mg 8 mouth 2 ity of tablet 20:39: (two) [place] [address] times Medical daily. Branch levETIRAcet Yes 500mg Take 500 U nivers am 500 mg 8- mg by ity of tablet 20:39: mouth 2 [place] [address] (two) Medical times Branch daily. aspirin 81 Yes 81mg Take 81 mg U nivers mg chewable 10-07 by mouth ity of tablet 20:39: daily. [place] [address] Medical Branch multivit-mi Yes Take by Un rowena nerals/foli 10-07 mouth. ity of c acid 20:39: [place] (CENTRUM Medical VITAMINTS Branch ORAL) metformin Yes Take by Univ ers HCl 10-07 mouth. ity of (METFORMIN 20:39: [place] ORAL) Medical Branch gabapentin Yes Take by Uni vers ER 300 mg 10-07 mouth ity of tablet, 20:39: daily. [place] [address] Medical release 24 Branch hr iron Yes Take by Univers bis-gly/FA/ 10-07 mouth. ity of C/B12/Ca/g[place]rie 20:39: [place] cc (IRON Medical 21/7 ORAL) Branch aspirin 81 Yes 81mg Take 81 mg U nivers mg chewable 7-28 by mouth ity of tablet 16:48: daily. [place] [address] Medical Branch aspirin 81 0 Yes 81mg Take 81 mg U nivers mg chewable 7-28 by mouth ity of tablet 16:48: daily. [place] [address] Medical Branch aspirin 81 0 Yes 81mg Take 81 mg U nivers mg chewable 7-28 by mouth ity of tablet 16:48: daily. [place] [address] Medical Branch furosemide 0 Yes 20mg Take 1 Unive rs 20 mg 6-23 tablet by ity of tablet 00:00: mouth [place] 00 daily. Medical Branch furosemide 0 Yes 20mg Take 1 Unive rs 20 mg 6-23 tablet by ity of tablet 00:00: mouth [place] 00 daily. Medical Branch furosemide 0 Yes 20mg Take 1 Unive rs 20 mg 6-23 tablet by ity of tablet 00:00: mouth [place] 00 daily. Medical Branch furosemide 2021-0 Yes 20mg Take 1 Unive rs 20 mg 6-23 tablet by ity of tablet 00:00: mouth [place] 00 daily. Medical Branch furosemide 2021-0 Yes 20mg Take 1 Unive rs 20 mg 6-23 tablet by ity of tablet 00:00: mouth [place] 00 daily. Medical Branch furosemide 2021-0 Yes 20mg Take 1 Unive rs 20 mg 6-23 tablet by ity of tablet 00:00: mouth [place] 00 daily. Medical Branch furosemide 2021-0 Yes 20mg Take 1 Unive rs 20 mg 6-23 tablet by ity of tablet 00:00: mouth [place] 00 daily. Medical Branch furosemide 2021-0 Yes 20mg Take 1 Unive rs 20 mg 6-23 tablet by ity of tablet 00:00: mouth [place] 00 daily. Medical Branch furosemide 2021-0 Yes 20mg Take 1 Unive rs 20 mg 6-23 tablet by ity of tablet 00:00: mouth [place] 00 daily. Medical Branch furosemide 2021-0 Yes 20mg Take 1 Unive rs 20 mg 6-23 tablet by ity of tablet 00:00: mouth [place] 00 daily. Medical Branch furosemide 2021-0 Yes 20mg Take 1 Unive rs 20 mg 6-23 tablet by ity of tablet 00:00: mouth [place] 00 daily. Medical Branch furosemide 2021-0 Yes 20mg Take 1 Unive rs 20 mg 6-23 tablet by ity of tablet 00:00: mouth [place] 00 daily. Medical Branch furosemide 2021-0 Yes 20mg Take 1 Unive rs 20 mg 6-23 tablet by ity of tablet 00:00: mouth [place] 00 daily. Medical Branch furosemide 2021-0 Yes 20mg Take 1 Unive rs 20 mg 6-23 tablet by ity of tablet 00:00: mouth [place] 00 daily. Medical Branch furosemide 2021-0 Yes 20mg Take 1 Unive rs 20 mg 6-23 tablet by ity of tablet 00:00: mouth [place] 00 daily. Medical Branch furosemide 2021-0 Yes 20mg Take 1 Unive rs 20 mg 6-23 tablet by ity of tablet 00:00: mouth [place] 00 daily. Medical Branch furosemide 2021-0 Yes 20mg Take 1 Unive rs 20 mg 6-23 tablet by ity of tablet 00:00: mouth [place] 00 daily. Medical Branch furosemide 2021-0 Yes 20mg Take 1 Unive rs 20 mg 6-23 tablet by ity of tablet 00:00: mouth [place] 00 daily. Medical Branch furosemide 2021-0 Yes 20mg Take 1 Unive rs 20 mg 6-23 tablet by ity of tablet 00:00: mouth [place] 00 daily. Medical Branch furosemide 2021-0 Yes 20mg Take 1 Unive rs 20 mg 6-23 tablet by ity of tablet 00:00: mouth [place] 00 daily. Medical Branch furosemide 2021-0 Yes 20mg Take 1 Unive rs 20 mg 6-23 tablet by ity of tablet 00:00: mouth [place] 00 daily. Medical Branch furosemide 2021-0 Yes 20mg Take 1 Unive rs 20 mg 6-23 tablet by ity of tablet 00:00: mouth [place] 00 daily. Medical Branch furosemide 2021-0 Yes 20mg Take 1 Unive rs 20 mg 6-23 tablet by ity of tablet 00:00: mouth [place] 00 daily. Medical Branch furosemide 2021-0 Yes 20mg Take 1 Unive rs 20 mg 6-23 tablet by ity of tablet 00:00: mouth [place] 00 daily. Medical Branch furosemide 2021-0 Yes 20mg Take 1 Unive rs 20 mg 6-23 tablet by ity of tablet 00:00: mouth [place] 00 daily. Medical Branch furosemide 2021-0 Yes 20mg Take 1 Unive rs 20 mg 6-23 tablet by ity of tablet 00:00: mouth [place] 00 daily. Medical Branch furosemide 2021-0 Yes 20mg Take 1 Unive rs 20 mg 6-23 tablet by ity of tablet 00:00: mouth [place] 00 daily. Medical Branch furosemide 2021-0 Yes 20mg Take 1 Unive rs 20 mg 6-23 tablet by ity of tablet 00:00: mouth [place] 00 daily. Medical Branch furosemide 2021-0 Yes 20mg Take 1 Unive rs 20 mg 6-23 tablet by ity of tablet 00:00: mouth [place] 00 daily. Medical Branch furosemide 2021-0 Yes 20mg Take 1 Unive rs 20 mg 6-23 tablet by ity of tablet 00:00: mouth [place] 00 daily. Medical Branch atorvastati 2021-0 Yes 40mg Take 1 Univ ers n 40 mg 6-14 tablet by ity of tablet 00:00: mouth at [place] 00 bedtime. Medical Branch atorvastati 2021-0 Yes 40mg Take 1 Univ ers n 40 mg 6-14 tablet by ity of tablet 00:00: mouth at [place] [address] bedtime. Medical Branch atorvastati 1-0 Yes 40mg Take 1 Univ ers n 40 mg 6-14 tablet by ity of tablet 00:00: mouth at [place] bedtime. Medical Branch atorvastati 1-0 Yes 40mg Take 1 Univ ers n 40 mg 6-14 tablet by ity of tablet 00:00: mouth at [place] bedtime. Medical Branch atorvastati 1-0 Yes 40mg Take 1 Univ ers n 40 mg 6-14 tablet by ity of tablet 00:00: mouth at [place] bedtime. Medical Branch atorvastati 1-0 Yes 40mg Take 1 Univ ers n 40 mg 6-14 tablet by ity of tablet 00:00: mouth at [place] bedtime. Medical Branch atorvastati 1-0 Yes 40mg Take 1 Univ ers n 40 mg 6-14 tablet by ity of tablet 00:00: mouth at [place] bedtime. Medical Branch atorvastati 1-0 Yes 40mg Take 1 Univ ers n 40 mg 6-14 tablet by ity of tablet 00:00: mouth at [place] bedtime. Medical Branch atorvastati 1-0 Yes 40mg Take 1 Univ ers n 40 mg 6-14 tablet by ity of tablet 00:00: mouth at [place] bedtime. Medical Branch atorvastati 1-0 Yes 40mg Take 1 Univ ers n 40 mg 6-14 tablet by ity of tablet 00:00: mouth at [place] bedtime. Medical Branch atorvastati 1-0 Yes 40mg Take 1 Univ ers n 40 mg 6-14 tablet by ity of tablet 00:00: mouth at [place] bedtime. Medical Branch atorvastati 1-0 Yes 40mg Take 1 Univ ers n 40 mg 6-14 tablet by ity of tablet 00:00: mouth at [place] bedtime. Medical Branch atorvastati 2021-0 Yes 40mg Take 1 Univ ers n 40 mg 6-14 tablet by ity of tablet 00:00: mouth at [place] [address] bedtime. Medical Branch atorvastati 1-0 Yes 40mg Take 1 Univ ers n 40 mg 6-14 tablet by ity of tablet 00:00: mouth at [place] [address] bedtime. Medical Branch atorvastati 2021-0 Yes 40mg Take 1 Univ ers n 40 mg 6-14 tablet by ity of tablet 00:00: mouth at [place] [address] bedtime. Medical Branch atorvastati 1-0 Yes 40mg Take 1 Univ ers n 40 mg 6-14 tablet by ity of tablet 00:00: mouth at [place] [address] bedtime. Medical Branch atorvastati 1-0 Yes 40mg Take 1 Univ ers n 40 mg 6-14 tablet by ity of tablet 00:00: mouth at [place] bedtime. Medical Branch atorvastati 1-0 Yes 40mg Take 1 Univ ers n 40 mg 6-14 tablet by ity of tablet 00:00: mouth at [place] [address] bedtime. Medical Branch atorvastati 1-0 Yes 40mg Take 1 Univ ers n 40 mg 6-14 tablet by ity of tablet 00:00: mouth at [place] [address] bedtime. Medical Branch atorvastati 1-0 Yes 40mg Take 1 Univ ers n 40 mg 6-14 tablet by ity of tablet 00:00: mouth at [place] [address] bedtime. Medical Branch atorvastati 1-0 Yes 40mg Take 1 Univ ers n 40 mg 6-14 tablet by ity of tablet 00:00: mouth at [place] [address] bedtime. Medical Branch atorvastati 1-0 Yes 40mg Take 1 Univ ers n 40 mg 6-14 tablet by ity of tablet 00:00: mouth at [place] [address] bedtime. Medical Branch atorvastati 1-0 Yes 40mg Take 1 Univ ers n 40 mg 6-14 tablet by ity of tablet 00:00: mouth at [place] [address] bedtime. Medical Branch atorvastati 1-0 Yes 40mg Take 1 Univ ers n 40 mg 6-14 tablet by ity of tablet 00:00: mouth at [place] [address] bedtime. Medical Branch atorvastati 1-0 Yes 40mg Take 1 Univ ers n 40 mg 6-14 tablet by ity of tablet 00:00: mouth at [place] [address] bedtime. Medical Branch atorvastati 2021-0 Yes 40mg Take 1 Univ ers n 40 mg 6-14 tablet by ity of tablet 00:00: mouth at [place] [address] bedtime. Medical Branch atorvastati 1-0 Yes 40mg Take 1 Univ ers n 40 mg 6-14 tablet by ity of tablet 00:00: mouth at [place] [address] bedtime. Medical Branch atorvastati 0 Yes 40mg Take 1 Univ ers n 40 mg 6-14 tablet by ity of tablet 00:00: mouth at [place] [address] bedtime. Medical Branch atorvastati 0 Yes 40mg Take 1 Univ ers n 40 mg 6-14 tablet by ity of tablet 00:00: mouth at [place] [address] bedtime. Medical Branch atorvastati 0 Yes 40mg Take 1 Univ ers n 40 mg 6-14 tablet by ity of tablet 00:00: mouth at [place] [address] bedtime. Medical Branch atorvastati Yes 40mg Take 1 Univ ers n 40 mg 6-14 tablet by ity of tablet 00:00: mouth at [place] bedtime. Medical Branch atorvastati Yes 40mg Take 1 Univ ers n 40 mg 6-14 tablet by ity of tablet 00:00: mouth at [place] [address] bedtime. Medical Branch atorvastati Yes 40mg Take 1 Univ ers n 40 mg 6-14 tablet by ity of tablet 00:00: mouth at [place] [address] bedtime. Medical Branch tc 2020- No [id number] 37.6mCi 37.6 Unive rs 99m-tetrofo 6 06-08 millicurie i ty of smin 17:30: 17:22 , [place] ([facility]) 00 :00 Intravenou Medi eloy injection s, ONCE, 1 Bran ch 37.6 dose, Tue millicurie 08/13/20 at 1230, Routine tc 2020- No [id number] 14.3mCi 14.3 Unive rs 99m-tetrofo 6 06-08 millicurie i ty of smin 14:30: 14:27 , [place] ([facility]) 00 :00 Intravenou Medi eloy injection s, ONCE, 1 Bran ch 14.3 dose, Tue millicurie 08/13/20 at 0930, Routine sodium 2020- No 25mg Univers hyaluronate 04-05 ity of (viscosup) 18:15: 17:02 [place] (SUPARTZ) 00 :00 Medical intra-artic Branch ular injection 25 mg sodium 2021-0 2021- No 25mg Univers hyaluronate 04-05 ity of (viscosup) 18:15: 17:02 [place] (SUPARTZ) 00 :00 Medical intra-artic Branch ular injection 25 mg sodium 2021-0 2021- No 25mg 25 mg, Univers hyaluronate 04-05 Intra-santo i ty of (viscosup) 18:15: 17:02 [place] ([place] 00 :00 ONCE, 1 Medical intra-artic dose, Fri [facility] ular 04/05/20 at injection 1215, 25 mg Routine sodium 2021-0 2021- No 25mg 25 mg, Univers hyaluronate 04-05 Intra-santo i ty of (viscosup) 18:15: 17:02 [place], [place] ([place] 00 :00 ONCE, 1 Medical intra-artic dose, Fri [facility] ular 04/05/20 at injection 1215, 25 mg Routine sodium 2021-0 2021- No 25mg Univers hyaluronate 04-05 ity of (viscosup) 18:15: 17:02 [place] ([place]) 00 :00 Medical intra-artic Branch ular injection 25 mg sodium 2021-0 2021- No 25mg Univers hyaluronate 04-05 ity of (viscosup) 18:15: 17:02 [place] ([place]) 00 :00 Medical intra-artic Branch ular injection 25 mg sodium 2021-0 2021- No 25mg 25 mg, Univers hyaluronate 04-05 Intra-santo i ty of (viscosup) 18:15: 17:02 [place] ([place] 00 :00 ONCE, 1 Medical intra-artic dose, Fri [facility] ular 04/05/20 at injection 1215, 25 mg Routine sodium 2021-0 2021- No 25mg 25 mg, Univers hyaluronate 04-05 Intra-santo i ty of (viscosup) 18:15: 17:02 [place], [place] ([place] 00 :00 ONCE, 1 Medical intra-artic dose, Fri [facility] ular 04/05/20 at injection 1215, 25 mg Routine sodium 2021-0 2021- No 20mg Univers hyaluronate 04-02 ity of (viscosup) 17:30: 16:21 [place] ([place]) 00 :00 Medical intra-artic Branch ular injection 20 mg sodium 2021-0 202- No 20mg Univers hyaluronate 04-02 ity of (viscosup) 17:30: 16:20 [place] ([place]) 00 :00 Medical intra-artic Branch ular injection 20 mg sodium 2021-0 202- No 20mg 20 mg, Univers hyaluronate 04-02 Intra-santo i ty of (viscosup) 17:30: 16:20 [place] ([place]) 00 :00 ONCE, 1 Medical intra-artic dose, [facility] ular 04/02/20 at injection 1130, 20 mg Routine sodium 2021-0 202- No 20mg 20 mg, Univers hyaluronate 04-02 Intra-santo i ty of (viscosup) 17:30: 16:21 [place] (SU[place]) 00 :00 ONCE, 1 Medical intra-artic dose, [facility] ular 04/02/20 at injection 1130, 20 mg Routine sodium 1-0 2020- No 20mg Univers hyaluronate 04-02 ity of (viscosup) 17:30: 16:21 [place] ([place]) 00 :00 Medical intra-artic Branch ular injection 20 mg sodium 2021-0 202- No 20mg Univers hyaluronate 04-02 ity of (viscosup) 17:30: 16:20 [place] ([place]) 00 :00 Medical intra-artic Branch ular injection 20 mg sodium 2021-0 202- No 20mg 20 mg, Univers hyaluronate 04-02 Intra-santo i ty of (viscosup) 17:30: 16:20 [place] (SUPARTZ) 00 :00 ONCE, 1 Medical intra-artic dose, [facility] ular 04/02/20 at injection 1130, 20 mg Routine sodium 2021-0 202- No 20mg 20 mg, Univers hyaluronate 04-02 Intra-santo i ty of (viscosup) 17:30: 16:21 [place], [place] ([place] 00 :00 ONCE, 1 Medical intra-artic dose, Tue [facility] ular 04/02/20 at injection 1130, 20 mg Routine sodium 2021-0 2021- No 20mg Univers hyaluronate 04-02 ity of (viscosup) 17:30: 16:21 [place] ([facility]) 00 :00 Medical intra-artic Branch ular injection 20 mg sodium 2021-0 2021- No 20mg Univers hyaluronate 04-02 ity of (viscosup) 17:30: 16:20 [place] (SUPARTZ) 00 :00 Medical intra-artic Branch ular injection 20 mg sodium 2021-0 2021- No 20mg 20 mg, Univers hyaluronate 04-02 Intra-santo i ty of (viscosup) 17:30: 16:20 [place] (SU[place]) 00 :00 ONCE, 1 Medical intra-artic dose, Tue [facility] ular 04/02/20 at injection 1130, 20 mg Routine sodium 2021-0 202- No 20mg 20 mg, Univers hyaluronate 04-02 Intra-santo i ty of (viscosup) 17:30: 16:21 [place] ([place]) 00 :00 ONCE, 1 Medical intra-artic dose, Tue [facility] ular 04/02/20 at injection 1130, 20 mg Routine sodium 2021-0 2021- No 20mg Univers hyaluronate 04-02 ity of (viscosup) 17:30: 16:21 [place] ([facility]) 00 :00 Medical intra-artic Branch ular injection 20 mg sodium 2021-0 2021- No 20mg Univers hyaluronate 04-02 ity of (viscosup) 17:30: 16:20 [place] (SUPARTZ) 00 :00 Medical intra-artic Branch ular injection 20 mg sodium 2021-0 2021- No 20mg 20 mg, Univers hyaluronate 04-02 Intra-santo i ty of (viscosup) 17:30: 16:20 [place]ular [place] ([place] 00 :00 ONCE, 1 Medical intra-artic dose, Tue [facility] ular 04/02/20 at injection 1130, 20 mg Routine sodium 2021-0 2021- No 20mg 20 mg, Univers hyaluronate 04-0215 Intra-santo i ty of (viscosup) 17:30: 16:21 [place] ([place]) 00 :00 ONCE, 1 Medical intra-artic dose, Tu [facility] ular 04/02/20 at injection 1130, 20 mg Routine sodium 2021-0 2021- No 25mg Univers hyaluronate 03-29 ity of (viscosup) 23:30: 23:18 [place] (SUPARTZ) 00 :00 Medical intra-artic Branch ular injection 25 mg sodium 2021-0 2021- No 25mg Univers hyaluronate 03-29 ity of (viscosup) 23:30: 23:18 [place] (SU[facility]Z) 00 :00 Medical intra-artic Branch ular injection 25 mg sodium 2021-0 2021- No 25mg 25 mg, Univers hyaluronate 03-29 Intra-santo i ty of (viscosup) 23:30: 23:18 [place] (SUPARTZ) 00 :00 ONCE, 1 Medical intra-artic dose, Wed [facility] ular 03/29/20 at injection 1730, 25 mg Routine sodium 2021-0 2021- No 25mg 25 mg, Univers hyaluronate 03-29 Intra-santo i ty of (viscosup) 23:30: 23:18 [place] (SUPARTZ) 00 :00 ONCE, 1 Medical intra-artic dose, Wed [facility] ular 03/29/20 at injection 1730, 25 mg Routine sodium 2021-0 2021- No 25mg Univers hyaluronate 03-29 ity of (viscosup) 23:30: 23:18 [place] (SUPARTZ) 00 :00 Medical intra-artic Branch ular injection 25 mg sodium 2021-0 2021- No 25mg Univers hyaluronate 03-29 ity of (viscosup) 23:30: 23:18 [place] (SU[facility]Z) 00 :00 Medical intra-artic Branch ular injection 25 mg sodium 2021-0 2021- No 25mg 25 mg, Univers hyaluronate 03-29 Intra-santo i ty of (viscosup) 23:30: 23:18 [place] ([place] 00 :00 ONCE, 1 Medical intra-artic dose, Fri [facility] ular 03/29/20 at injection 1730, 25 mg Routine sodium 2021-0 202- No 25mg 25 mg, Univers hyaluronate 03-29 Intra-santo i ty of (viscosup) 23:30: 23:18 cular [place] ([place] 00 :00 ONCE, 1 Medical intra-artic dose, Fri [facility] ular 03/29/20 at injection 1730, 25 mg Routine sodium 2021-0 202- No 25mg Univers hyaluronate 03-29 ity of (viscosup) 23:30: 23:18 [place] (SUPARTZ) 00 :00 Medical intra-artic Branch ular injection 25 mg sodium 2021-0 2020- No 25mg Univers hyaluronate 03-29 ity of (viscosup) 23:30: 23:18 [place] ([place]) 00 :00 Medical intra-artic Branch ular injection 25 mg sodium 2021-0 2020- No 25mg 25 mg, Univers hyaluronate 03-29 Intra-santo i ty of (viscosup) 23:30: 23:18 [place] (SUPARTZ) 00 :00 ONCE, 1 Medical intra-artic dose, Fri [facility] ular 03/29/20 at injection 1730, 25 mg Routine sodium 202-0 2020- No 25mg 25 mg, Univers hyaluronate 03-29 Intra-santo i ty of (viscosup) 23:30: 23:18 cular [place] ([place] 00 :00 ONCE, 1 Medical intra-artic dose, Fri [facility] ular 03/29/20 at injection 1730, 25 mg Routine methylPREDN 2020-0 2020- No 80mg Unive rs ISolone 03-22 ity of acetate 18:45: 06:44 [place] (DEPO-MEDRO 00 :00 Medical L) 80 mg/mL Branch 80 mg, lidocaine 1% (PF) (XYLOCAINE) 4 mL 5 mL injection methylPREDN 2020-0 2020- No 80mg Unive rs ISolone 03-22 ity of acetate 18:45: 06:44 [place] (DEPO-MEDRO 00 :00 Medical L) 80 mg/mL Branch 80 mg, lidocaine 1% (PF) (XYLOCAINE) 4 mL 5 mL injection methylPREDN 2021-0 2021- No 80mg Unive rs ISolone 03-22 ity of acetate 18:45: 06:44 [place] (DEPO-MEDRO 00 :00 Medical L) 80 mg/mL Branch 80 mg, lidocaine 1% (PF) (XYLOCAINE) 4 mL 5 mL injection methylPREDN 2021-0 2021- No 80mg Unive rs ISolone 03-22 ity of acetate 18:45: 06:44 [place] (DEPO-MEDRO 00 :00 Medical L) 80 mg/mL Branch 80 mg, lidocaine 1% (PF) (XYLOCAINE) 4 mL 5 mL injection methylPREDN 2021-0 2021- No 80mg Unive rs ISolone 03-22 ity of acetate 18:45: 06:44 [place] (DEPO-MEDRO 00 :00 Medical L) 80 mg/mL Branch 80 mg, lidocaine 1% (PF) (XYLOCAINE) 4 mL 5 mL injection methylPREDN 2021-0 2021- No 80mg Unive rs ISolone 03-22 ity of acetate 18:45: 06:44 [place] (DEPO-MEDRO 00 :00 Medical L) 80 mg/mL Branch 80 mg, lidocaine 1% (PF) (XYLOCAINE) 4 mL 5 mL injection methylPREDN 2021-0 2021- No 80mg Unive rs ISolone 03-22 ity of acetate 18:45: 06:44 [place] (DEPO-MEDRO 00 :00 Medical L) 80 mg/mL Branch 80 mg, lidocaine 1% (PF) (XYLOCAINE) 4 mL 5 mL injection methylPREDN 2021-0 2021- No 80mg Unive rs ISolone 03-22 ity of acetate 18:45: 06:44 [place] (DEPO-MEDRO 00 :00 Medical L) 80 mg/mL Branch 80 mg, lidocaine 1% (PF) (XYLOCAINE) 4 mL 5 mL injection methylPREDN 2021-0 2021- No 80mg Unive rs ISolone 03-22 ity of acetate 18:45: 18:34 [place] (DEPO-MEDRO 00 :00 Medical L) 80 mg/mL Branch 80 mg, lidocaine 1% (PF) (XYLOCAINE) 4 mL 5 mL injection methylPREDN 2021-0 2021- No 80mg Unive rs ISolone 03-22 ity of acetate 18:45: 18:33 [place] (DEPO-MEDRO 00 :00 Medical L) 80 mg/mL Branch 80 mg, lidocaine 1% (PF) (XYLOCAINE) 4 mL 5 mL injection methylPREDN 2021-0 2021- No 80mg Intra-santo Univers ISolone 03-22 cular, ity of acetate 18:45: 18:33 ONCE, 1 [place] (DEPO-MEDRO 00 :00 dose, Wed Med ical L) 80 mg/mL 03/22/20 at Br anch 80 mg, 1245, 5 mL lidocaine 1% (PF) (XYLOCAINE) 4 mL 5 mL injection methylPREDN 2021-0 2021- No 80mg [facility] 03-22 cular, ity of acetate 18:45: 18:34 ONCE, 1 [place] (DEPO-MEDRO 00 :00 dose, Fri Med ical L) 80 mg/mL 03/22/20 at Br anch 80 mg, 1245, 5 mL lidocaine 1% (PF) (XYLOCAINE) 4 mL 5 mL injection methylPREDN 2021-0 2021- No 80mg Unive rs ISolone 03-22 ity of acetate 18:45: 18:34 [place] (DEPO-MEDRO 00 :00 Medical L) 80 mg/mL Branch 80 mg, lidocaine 1% (PF) (XYLOCAINE) 4 mL 5 mL injection methylPREDN 2021-0 2021- No 80mg Unive rs ISolone 03-22 ity of acetate 18:45: 18:33 [place] (DEPO-MEDRO 00 :00 Medical L) 80 mg/mL Branch 80 mg, lidocaine 1% (PF) (XYLOCAINE) 4 mL 5 mL injection methylPREDN 2021-0 2021- No 80mg [facility] ISolone 03-22 cular, ity of acetate 18:45: 18:33 ONCE, 1 [place] (DEPO-MEDRO 00 :00 dose, Fri Med ical L) 80 mg/mL 03/22/20 at Br anch 80 mg, 1245, 5 mL lidocaine 1% (PF) (XYLOCAINE) 4 mL 5 mL injection methylPREDN 2021-0 2021- No [facility], ity of acetate 18:45: 18:34 ONCE, 1 [place] (DEPO-MEDRO 00 :00 dose, Fri Med ical L) 80 mg/mL 03/22/20 at Br anch 80 mg, 1245, 5 mL lidocaine 1% (PF) (XYLOCAINE) 4 mL 5 mL injection methylPREDN 2021-0 2021- [facility] 18:45: 18:34 [place] (DEPO-MEDRO 00 :00 Medical L) 80 mg/mL Branch 80 mg, lidocaine 1% (PF) (XYLOCAINE) 4 mL 5 mL injection methylPREDN 2021-0 202- No 80mg Unive rs [facility] 03-22 ity of acetate 18:45: 18:33 [place] (DEPO-MEDRO 00 :00 Medical L) 80 mg/mL Branch 80 mg, lidocaine 1% (PF) (XYLOCAINE) 4 mL 5 mL injection methylPREDN 2021-0 2021- No 80[facility], ity of acetate 18:45: 18:33 ONCE, 1 [place] (DEPO-MEDRO 00 :00 dose, Wed Med ical L) 80 mg/mL 03/22/20 at Br anch 80 mg, 1245, 5 mL lidocaine 1% (PF) (XYLOCAINE) 4 mL 5 mL injection methylPREDN 2021-0 2021- No 80mg [facility], ity of acetate 18:45: 18:34 ONCE, 1 [place] (DEPO-MEDRO 00 :00 dose, Wed Med ical L) 80 mg/mL 03/22/20 at Br anch 80 mg, 1245, 5 mL lidocaine 1% (PF) (XYLOCAINE) 4 mL 5 mL injection gabapentin 2021-0 Yes [id number] 300mg Take 1 [facility] 300 mg -15 capsule by ity of capsule 00:00: mouth (three) Medical times Branch daily. meloxicam Yes [id number] 15mg Take 1 U nivers (MOBIC) 15 1-15 tablet by ity of mg tablet 00:00: mouth [place] 00 daily. Medical Branch gabapentin Yes [id number] 300mg Take 1 [facility] 300 mg 1-15 capsule by ity of capsule 00:00: mouth (three) Medical times Branch daily. meloxicam Yes [id number] 15mg Take 1 U nivers (MOBIC) 15 1-15 tablet by ity of mg tablet 00:00: mouth [place] 00 daily. Medical Branch gabapentin Yes [id number] 300mg Take 1 [facility] 300 mg 1-15 capsule by ity of capsule 00:00: mouth (three) Medical times Branch daily. meloxicam Yes [id number] 15mg Take 1 U nivers (MOBIC) 15 1-15 tablet by ity of mg tablet 00:00: mouth [place] 00 daily. Medical Branch gabapentin Yes [id number] 300mg Take 1 [facility] 300 mg 1-15 capsule by ity of capsule 00:00: mouth (three) Medical times Branch daily. meloxicam Yes [id number] 15mg Take 1 U nivers (MOBIC) 15 1-15 tablet by ity of mg tablet 00:00: mouth [place] 00 daily. Medical Branch gabapentin Yes [id number] 300mg Take 1 [facility] 300 mg 1-15 capsule by ity of capsule 00:00: mouth (three) Medical times Branch daily. meloxicam Yes [id number] 15mg Take 1 U nivers (MOBIC) 15 1-15 tablet by ity of mg tablet 00:00: mouth [place] 00 daily. Medical Branch gabapentin Yes [id number] 300mg Take 1 [facility] 300 mg 1-15 capsule by ity of capsule 00:00: mouth 3 (three) Medical times Branch daily. meloxicam Yes [id number] 15mg Take 1 U nivers (MOBIC) 15 1-15 tablet by ity of mg tablet 00:00: mouth [place] 00 daily. Medical Branch gabapentin Yes [id number] 300mg Take 1 [facility] 300 mg 1-15 capsule by ity of capsule 00:00: mouth 3 (three) Medical times Branch daily. meloxicam Yes [id number] 15mg Take 1 U nivers (MOBIC) 15 1-15 tablet by ity of mg tablet 00:00: mouth [place] 00 daily. Medical Branch gabapentin Yes [id number] 300mg Take 1 [facility] 300 mg 1-15 capsule by ity of capsule 00:00: mouth 3 (three) Medical times Branch daily. meloxicam Yes [id number] 15mg Take 1 U nivers (MOBIC) 15 1-15 tablet by ity of mg tablet 00:00: mouth [place] 00 daily. Medical Branch gabapentin Yes [id number] 300mg Take 1 [facility] 300 mg 1-15 capsule by ity of capsule 00:00: mouth 3 (three) Medical times Branch daily. meloxicam Yes [id number] 15mg Take 1 U nivers (MOBIC) 15 1-15 tablet by ity of mg tablet 00:00: mouth [place] 00 daily. Medical Branch gabapentin Yes [id number] 300mg Take 1 [facility] 300 mg 1-15 capsule by ity of capsule 00:00: mouth 3 (three) Medical times Branch daily. meloxicam Yes [id number] 15mg Take 1 U nivers (MOBIC) 15 1-15 tablet by ity of mg tablet 00:00: mouth [place] 00 daily. Medical Branch gabapentin Yes [id number] 300mg Take 1 [facility] 300 mg 1-15 capsule by ity of capsule 00:00: mouth 3 (three) Medical times Branch daily. meloxicam Yes [id number] 15mg Take 1 U nivers (MOBIC) 15 1-15 tablet by ity of mg tablet 00:00: mouth [place] 00 daily. Medical Branch gabapentin Yes [id number] 300mg Take 1 [facility] 300 mg 1-15 capsule by ity of capsule 00:00: mouth 3 (three) Medical times Branch daily. meloxicam Yes [id number] 15mg Take 1 U nivers (MOBIC) 15 1-15 tablet by ity of mg tablet 00:00: mouth [place] 00 daily. Medical Branch gabapentin Yes [id number] 300mg Take 1 [facility] 300 mg 1-15 capsule by ity of capsule 00:00: mouth 3 (three) Medical times Branch daily. meloxicam 2020-0 Yes [id number] 15mg Take 1 U nivers (MOBIC) 15 1-15 tablet by ity of mg tablet 00:00: mouth [place] 00 daily. Medical Branch gabapentin 2020-0 Yes [id number] 300mg Take 1 [facility] 300 mg 1-15 capsule by ity of capsule 00:00: mouth 3 (three) Medical times Branch daily. meloxicam 0 Yes [id number] 15mg Take 1 U nivers (MOBIC) 15 1-15 tablet by ity of mg tablet 00:00: mouth [place] 00 daily. Medical Branch gabapentin 2020- Yes [id number] 300mg Take 1 [facility] 300 mg 1-15 capsule by ity of capsule 00:00: mouth 3 (three) Medical times Branch daily. meloxicam 2020- Yes [id number] 15mg Take 1 U nivers (MOBIC) 15 1-15 tablet by ity of mg tablet 00:00: mouth [place] 00 daily. Medical Branch gabapentin Yes [id number] 300mg Take 1 [facility] 300 mg 1-15 capsule by ity of capsule 00:00: mouth (three) Medical times Branch daily. meloxicam 2020-0 Yes [id number] 15mg Take 1 U nivers (MOBIC) 15 1-15 tablet by ity of mg tablet 00:00: mouth [place] 00 daily. Medical Branch gabapentin 2020-0 Yes [id number] 300mg Take 1 [facility] 300 mg 1-15 capsule by ity of capsule 00:00: mouth 3 (three) Medical times Branch daily. meloxicam 2020-0 Yes [id number] 15mg Take 1 U nivers (MOBIC) 15 1-15 tablet by ity of mg tablet 00:00: mouth [place] 00 daily. Medical Branch gabapentin 2020-0 Yes [id number] 300mg Take 1 [facility] 300 mg 1-15 capsule by ity of capsule 00:00: mouth 3 (three) Medical times Branch daily. meloxicam 2020-0 Yes [id number] 15mg Take 1 U nivers (MOBIC) 15 1-15 tablet by ity of mg tablet 00:00: mouth [place] 00 daily. Medical Branch gabapentin Yes [id number] 300mg Take 1 [facility] 300 mg 1-15 capsule by ity of capsule 00:00: mouth 3 (three) Medical times Branch daily. meloxicam 0 Yes [id number] 15mg Take 1 U nivers (MOBIC) 15 1-15 tablet by ity of mg tablet 00:00: mouth [place] 00 daily. Medical Branch gabapentin Yes [id number] 300mg Take 1 [facility] 300 mg 1-15 capsule by ity of capsule 00:00: mouth 3 (three) Medical times Branch daily. meloxicam Yes [id number] 15mg Take 1 U nivers (MOBIC) 15 1-15 tablet by ity of mg tablet 00:00: mouth [place] 00 daily. Medical Branch gabapentin Yes [id number] 300mg Take 1 [facility] 300 mg 1-15 capsule by ity of capsule 00:00: mouth (three) Medical times Branch daily. meloxicam Yes [id number] 15mg Take 1 U nivers (MOBIC) 15 1-15 tablet by ity of mg tablet 00:00: mouth [place] 00 daily. Medical Branch gabapentin Yes [id number] 300mg Take 1 [facility] 300 mg 1-15 capsule by ity of capsule 00:00: mouth (three) Medical times Branch daily. meloxicam Yes [id number] 15mg Take 1 U nivers (MOBIC) 15 1-15 tablet by ity of mg tablet 00:00: mouth [place] 00 daily. Medical Branch gabapentin Yes [id number] 300mg Take 1 [facility] 300 mg 1-15 capsule by ity of capsule 00:00: mouth 3 (three) Medical times Branch daily. meloxicam 2020- Yes [id number] 15mg Take 1 U nivers (MOBIC) 15 1-15 tablet by ity of mg tablet 00:00: mouth [place] 00 daily. Medical Branch gabapentin 2020- Yes [id number] 300mg Take 1 [facility] 300 mg 1-15 capsule by ity of capsule 00:00: mouth 3 [place] (three) Medical times Branch daily. meloxicam 2020- Yes [id number] 15mg Take 1 U nivers (MOBIC) 15 1-15 tablet by ity of mg tablet 00:00: mouth [place] 00 daily. Medical Branch gabapentin Yes [id number] 300mg Take 1 [facility] 300 mg 1-15 capsule by ity of capsule 00:00: mouth 3 (three) Medical times Branch daily. meloxicam Yes [id number] 15mg Take 1 U nivers (MOBIC) 15 1-15 tablet by ity of mg tablet 00:00: mouth [place] 00 daily. Medical Branch gabapentin Yes [id number] 300mg Take 1 [facility] 300 mg 1-15 capsule by ity of capsule 00:00: mouth 3 (three) Medical times Branch daily. meloxicam Yes [id number] 15mg Take 1 U nivers (MOBIC) 15 1-15 tablet by ity of mg tablet 00:00: mouth [place] 00 daily. Medical Branch gabapentin Yes [id number] 300mg Take 1 [facility] 300 mg 1-15 capsule by ity of capsule 00:00: mouth (three) Medical times Branch daily. meloxicam Yes [id number] 15mg Take 1 U nivers (MOBIC) 15 1-15 tablet by ity of mg tablet 00:00: mouth [place] 00 daily. Medical Branch gabapentin Yes [id number] 300mg Take 1 [facility] 300 mg 1-15 capsule by ity of capsule 00:00: mouth 3 (three) Medical times Branch daily. meloxicam Yes [id number] 15mg Take 1 U nivers (MOBIC) 15 1-15 tablet by ity of mg tablet 00:00: mouth [place] 00 daily. Medical Branch gabapentin Yes [id number] 300mg Take 1 [facility] 300 mg 1-15 capsule by ity of capsule 00:00: mouth 3 (three) Medical times Branch daily. meloxicam 2020- Yes [id number] 15mg Take 1 U nivers (MOBIC) 15 1-15 tablet by ity of mg tablet 00:00: mouth [place] 00 daily. Medical Branch gabapentin Yes [id number] 300mg Take 1 [facility] 300 mg 1-15 capsule by ity of capsule 00:00: mouth 3 (three) Medical times Branch daily. meloxicam Yes [id number] 15mg Take 1 U nivers (MOBIC) 15 1-15 tablet by ity of mg tablet 00:00: mouth [place] 00 daily. Medical Branch gabapentin Yes [id number] 300mg Take 1 [facility] 300 mg 1-15 capsule by ity of capsule 00:00: mouth 3 (three) Medical times Branch daily. meloxicam Yes [id number] 15mg Take 1 U nivers (MOBIC) 15 1-15 tablet by ity of mg tablet 00:00: mouth [place] 00 daily. Medical Branch gabapentin Yes [id number] 300mg Take 1 [facility] 300 mg 1-15 capsule by ity of capsule 00:00: mouth 3 00 (three) Medical times Branch daily. meloxicam Yes [id number] 15mg Take 1 U nivers (MOBIC) 15 1-15 tablet by ity of mg tablet 00:00: mouth [place] 00 daily. Medical Branch gabapentin Yes [id number] 300mg Take 1 [facility] 300 mg 1-15 capsule by ity of capsule 00:00: mouth 3 (three) Medical times Branch daily. meloxicam Yes [id number] 15mg Take 1 U nivers (MOBIC) 15 1-15 tablet by ity of mg tablet 00:00: mouth [place] 00 daily. Medical Branch gabapentin Yes [id number] 300mg Take 1 [facility] 300 mg 1-15 capsule by ity of capsule 00:00: mouth 3 (three) Medical times Branch daily. meloxicam Yes [id number] 15mg Take 1 U nivers (MOBIC) 15 1-15 tablet by ity of mg tablet 00:00: mouth [place] 00 daily. Medical Branch gabapentin Yes [id number] 300mg Take 1 [facility] 300 mg 1-15 capsule by ity of capsule 00:00: mouth 3 00 (three) Medical times Branch daily. meloxicam Yes [id number] 15mg Take 1 U nivers (MOBIC) 15 1-15 tablet by ity of mg tablet 00:00: mouth [place] 00 daily. Medical Branch gabapentin Yes [id number] 300mg Take 1 [facility] 300 mg 1-15 capsule by ity of capsule 00:00: mouth 3 00 (three) Medical times Branch daily. meloxicam Yes [id number] 15mg Take 1 U nivers (MOBIC) 15 1-15 tablet by ity of mg tablet 00:00: mouth [place] 00 daily. Medical Branch gabapentin Yes [id number] 300mg Take 1 [facility] 300 mg 1-15 capsule by ity of capsule 00:00: mouth 3 00 (three) Medical times Branch daily. meloxicam Yes [id number] 15mg Take 1 U nivers (MOBIC) 15 1-15 tablet by ity of mg tablet 00:00: mouth [place] 00 daily. Medical Branch gabapentin Yes [id number] 300mg Take 1 [facility] 300 mg 1-15 capsule by ity of capsule 00:00: mouth 3 00 (three) Medical times Branch daily. meloxicam Yes [id number] 15mg Take 1 U nivers (MOBIC) 15 1-15 tablet by ity of mg tablet 00:00: mouth [place] 00 daily. Medical Branch gabapentin Yes [id number] 300mg Take 1 [facility] 300 mg 1-15 capsule by ity of capsule 00:00: mouth 3 (three) Medical times Branch daily. meloxicam Yes [id number] 15mg Take 1 U nivers (MOBIC) 15 1-15 tablet by ity of mg tablet 00:00: mouth [place] 00 daily. Medical Branch gabapentin Yes [id number] 300mg Take 1 [facility] 300 mg 1-15 capsule by ity of capsule 00:00: mouth 3 00 (three) Medical times Branch daily. meloxicam Yes [id number] 15mg Take 1 U nivers (MOBIC) 15 1-15 tablet by ity of mg tablet 00:00: mouth [place] 00 daily. Medical Branch gabapentin Yes [id number] 300mg Take 1 [facility] 300 mg 1-15 capsule by ity of capsule 00:00: mouth 3 00 (three) Medical times Branch daily. meloxicam Yes [id number] 15mg Take 1 U nivers (MOBIC) 15 1-15 tablet by ity of mg tablet 00:00: mouth [place] 00 daily. Medical Branch gabapentin Yes [id number] 300mg Take 1 [facility] 300 mg 1-15 capsule by ity of capsule 00:00: mouth 3 00 (three) Medical times Branch daily. meloxicam 2021-0 Yes [id number] 15mg Take 1 U nivers (MOBIC) 15 1-15 tablet by ity of mg tablet 00:00: mouth [place] 00 daily. Medical Branch gabapentin Yes [id number] 300mg Take 1 [facility] 300 mg 1-15 capsule by ity of capsule 00:00: mouth 3 [place] 00 (three) Medical times Branch daily. meloxicam Yes [id number] 15mg Take 1 U nivers (MOBIC) 15 1-15 tablet by ity of mg tablet 00:00: mouth [place] 00 daily. Medical Branch gabapentin Yes [id number] 300mg Take 1 [facility] 300 mg 1-15 capsule by ity of capsule 00:00: mouth 3 00 (three) Medical times Branch daily. meloxicam Yes [id number] 15mg Take 1 U nivers (MOBIC) 15 1-15 tablet by ity of mg tablet 00:00: mouth [place] 00 daily. Medical Branch gabapentin Yes [id number] 300mg Take 1 [facility] 300 mg 1-15 capsule by ity of capsule 00:00: mouth 3 (three) Medical times Branch daily. meloxicam Yes [id number] 15mg Take 1 U nivers (MOBIC) 15 1-15 tablet by ity of mg tablet 00:00: mouth [place] 00 daily. Medical Branch gabapentin Yes [id number] 300mg Take 1 [facility] 300 mg 1-15 capsule by ity of capsule 00:00: mouth 3 00 (three) Medical times Branch daily. meloxicam Yes [id number] 15mg Take 1 U nivers (MOBIC) 15 1-15 tablet by ity of mg tablet 00:00: mouth [place] 00 daily. Medical Branch gabapentin Yes [id number] 300mg Take 1 [facility] 300 mg 1-15 capsule by ity of capsule 00:00: mouth 3 [place] 00 (three) Medical times Branch daily. meloxicam 0 Yes [id number] 15mg Take 1 U nivers (MOBIC) 15 1-15 tablet by ity of mg tablet 00:00: mouth [place] 00 daily. Medical Branch gabapentin Yes [id number] 300mg Take 1 [facility] 300 mg 1-15 capsule by ity of capsule 00:00: mouth 3 [place] 00 (three) Medical times Branch daily. meloxicam Yes [id number] 15mg Take 1 U nivers (MOBIC) 15 1-15 tablet by ity of mg tablet 00:00: mouth [place] 00 daily. Medical Branch gabapentin Yes [id number] 300mg Take 1 [facility] 300 mg 1-15 capsule by ity of capsule 00:00: mouth 3 (three) Medical times Branch daily. meloxicam Yes [id number] 15mg Take 1 U nivers (MOBIC) 15 1-15 tablet by ity of mg tablet 00:00: mouth [place] 00 daily. Medical Branch gabapentin Yes [id number] 300mg Take 1 [facility] 300 mg 1-15 capsule by ity of capsule 00:00: mouth 3 (three) Medical times Branch daily. meloxicam Yes [id number] 15mg Take 1 U nivers (MOBIC) 15 1-15 tablet by ity of mg tablet 00:00: mouth [place] 00 daily. Medical Branch gabapentin Yes [id number] 300mg Take 1 [facility] 300 mg 1-15 capsule by ity of capsule 00:00: mouth (three) Medical times Branch daily. meloxicam Yes [id number] 15mg Take 1 U nivers (MOBIC) 15 1-15 tablet by ity of mg tablet 00:00: mouth [place] 00 daily. Medical Branch gabapentin Yes [id number] 300mg Take 1 [facility] 300 mg 1-15 capsule by ity of capsule 00:00: mouth (three) Medical times Branch daily. meloxicam Yes [id number] 15mg Take 1 U nivers (MOBIC) 15 1-15 tablet by ity of mg tablet 00:00: mouth [place] 00 daily. Medical Branch gabapentin Yes [id number] 300mg Take 1 [facility] 300 mg 1-15 capsule by ity of capsule 00:00: mouth 3 (three) Medical times Branch daily. meloxicam Yes [id number] 15mg Take 1 U nivers (MOBIC) 15 1-15 tablet by ity of mg tablet 00:00: mouth [place] 00 daily. Medical Branch sodium 2021- No 25mg [facility] hyaluronate 03-11 ity of (viscosup) 20:45: 19:57 [place] (SUPARTZ) 00 :00 Medical intra-artic Branch ular injection 25 mg sodium 2021-0 2021- No 25mg [facility] hyaluronate 03-11 ity of (viscosup) 20:45: 19:56 [place] (SUPARTZ) 00 :00 Medical intra-artic Branch ular injection 25 mg sodium 2021-0 2021- No 25mg 25 mg, [facility] hyaluronate 03-11 Intra-santo i ty of (viscosup) 20:45: 19:56 cular, [place] (SUPART[place] 00 :00 ONCE, 1 Medical intra-artic dose, [facility] ular 03/11/20 at injection 1445, 25 mg Routine sodium 2021-0 2021- No 25mg 25 mg, [facility] hyaluronate 03-11 Intra-[facility] i ty of (viscosup) 20:45: 19:57 cular, [place] (SUPART[place] 00 :00 ONCE, 1 Medical intra-artic dose, [facility] ular 03/11/20 at injection 1445, 25 mg Routine sodium 2021-0 2021- No 25mg [facility] hyaluronate 03-11 ity of (viscosup) 20:45: 19:57 [place] (SUPARTZ) 00 :00 Medical intra-artic Branch ular injection 25 mg sodium 2021-0 2021- No 25mg [facility] hyaluronate 03-11 ity of (viscosup) 20:45: 19:56 [place] (SUPARTZ) 00 :00 Medical intra-artic Branch ular injection 25 mg sodium 2021-0 2021- No 25mg 25 mg, [facility] hyaluronate 03-11 Intra-s[facility] i ty of (viscosup) 20:45: 19:56 [place]ular, [place] (SUPARTZ[place] 00 :00 ONCE, 1 Medical intra-artic dose, [facility] ular 03/11/20 at injection 1445, 25 mg Routine sodium 2021-0 2021- No 25mg 25 mg, [facility] hyaluronate 03-11 Intra-[facility] i ty of (viscosup) 20:45: 19:57 cular, [place] (SUPARTZ) 00 :00 ONCE, 1 Medical intra-artic dose, [facility] ular 03/11/20 at injection 1445, 25 mg Routine sodium 2021-0 2021- No 25mg [facility] hyaluronate 03-11 ity of (viscosup) 20:45: 19:57 [place] (SUPARTZ) 00 :00 Medical intra-artic Branch ular injection 25 mg sodium 2021-0 2021- No 25mg [facility] hyaluronate 03-11 ity of (viscosup) 20:45: 19:56 [place] (SUPARTZ) 00 :00 Medical intra-artic Branch ular injection 25 mg sodium 2021-0 2021- No 25mg 25 mg, [facility] hyaluronate 03-11 Intra-[facility]anto i ty of (viscosup) 20:45: 19:56 cular, [place] (SUPARTZ[place] 00 :00 ONCE, 1 Medical intra-artic dose, [facility] ular 03/11/20 at injection 1445, 25 mg Routine sodium 2021-0 202- No 25mg 25 mg, [facility] hyaluronate 03-11 Intra-[facility] i ty of (viscosup) 20:45: 19:57 cular, [place] (SUPARTZ[place] 00 :00 ONCE, 1 Medical intra-artic dose, [facility] ular 03/11/20 at injection 1445, 25 mg Routine sodium 2020-0 2020- No 25mg [facility] hyaluronate 09-07 ity of (viscosup) 15:30: 14:46 [place] (SUPARTZ) 00 :00 Medical intra-artic Branch ular injection 25 mg sodium 2020-0 2020- No 25mg [facility] hyaluronate 09-07 ity of (viscosup) 15:30: 14:46 [place] (SUPARTZ) 00 :00 Medical intra-artic Branch ular injection 25 mg sodium 2020-0 2020- No 25mg 25 mg, [facility] hyaluronate -05 12- Intra-[facility] i ty of (viscosup) 15:30: 14:46 cular, [place] (SUPARTZ[place] 00 :00 ONCE, 1 Medical intra-artic dose, [facility] ular 09/08/19 at injection 1030, 25 mg Routine sodium 2020-0 2020- No 25mg 25 mg, [facility] hyaluronate - Intra-[facility] i ty of (viscosup) 15:30: 14:46 cular, [place] (SUPARTZ) 00 :00 ONCE, 1 Medical intra-artic dose, Fri [facility] ular 09/08/19 at injection 1030, 25 mg Routine sodium 2020-0 2020- No 25mg [facility] hyaluronate -05 12- ity of (viscosup) 15:30: 14:46 [place] (SUPARTZ) 00 :00 Medical intra-artic Branch ular injection 25 mg sodium 2020-0 2020- No 25mg [facility] hyaluronate 09-07- ity of (viscosup) 15:30: 14:46 [place] (SUPARTZ) 00 :00 Medical intra-artic Branch ular injection 25 mg sodium 2020-0 2020- No 25mg 25 mg, [facility] hyaluronate 09-07 Intra-s[facility] i ty of (viscosup) 15:30: 14:46 cular, [place] (SUPARTZ) 00 :00 ONCE, 1 Medical intra-artic dose, Fri [facility] ular 09/08/19 at injection 1030, 25 mg Routine sodium 2020-0 2020- No 25mg 25 mg, [facility] hyaluronate 09-07 Intra-[facility] i ty of (viscosup) 15:30: 14:46 cular [place] (SUPARTZ) 00 :00 ONCE, 1 Medical intra-artic dose, Fri [facility] ular 09/08/19 at injection 1030, 25 mg Routine sodium 2020-0 2020- No 25mg [facility] hyaluronate -05 12- ity of (viscosup) 15:30: 14:46 [place] (SUPARTZ) 00 :00 Medical intra-artic Branch ular injection 25 mg sodium 2020-0 2020- No 25mg [facility] hyaluronate -05 12- ity of (viscosup) 15:30: 14:46 [place] (SUPARTZ) 00 :00 Medical intra-artic Branch ular injection 25 mg sodium 2020-0 2020- No 25mg 25 mg, [facility] hyaluronate -09-07 Intra-[facility] i ty of (viscosup) 15:30: 14:46 cular, [place] (SUPARTZ) 00 :00 ONCE, 1 Medical intra-artic dose, Fri [facility] ular 09/08/19 at injection 1030, 25 mg Routine sodium 2020-0 2020- No 25mg 25 mg, [facility] hyaluronate 09-07 Intra-[facility] i ty of (viscosup) 15:30: 14:46 [place] ([place] 00 :00 ONCE, 1 Medical intra-artic dose, Fri [facility] ular 09/08/19 at injection 1030, 25 mg Routine sodium 2020-0 2020- No 25mg [facility] hyaluronate 09-07 ity of (viscosup) 15:30: 14:46 [place] (SUPARTZ) 00 :00 Medical intra-artic Branch ular injection 25 mg sodium 2020-0 2020- No 25mg [facility] hyaluronate -09-07 ity of (viscosup) 15:30: 14:46 [place] (SUPARTZ) 00 :00 Medical intra-artic Branch ular injection 25 mg sodium 2020-0 2020- No 25mg 25 mg, [facility] hyaluronate 09-07 Intra-[facility] i ty of (viscosup) 15:30: 14:46 [place] (SUPARTZ) 00 :00 ONCE, 1 Medical intra-artic dose, Fri [facility] ular 09/08/19 at injection 1030, 25 mg Routine sodium 2020-0 2020- No 25mg 25 mg, [facility] hyaluronate 09-07 Intra-[facility] i ty of (viscosup) 15:30: 14:46 [place] (SU[place]) 00 :00 ONCE, 1 Medical intra-artic dose, Fri [facility] ular 09/08/19 at injection 1030, 25 mg Routine sodium 2020-0 2020- No 25mg [facility] hyaluronate -31 08- ity of (viscosup) 16:00: 14:57 [place] (SUPARTZ) 00 :00 Medical intra-artic Branch ular injection 25 mg sodium 2020-0 2020- No 25mg [facility] hyaluronate 6-26 - ity of (viscosup) 16:00: 14:57 [place] (SUPARTZ) 00 :00 Medical intra-artic Branch ular injection 25 mg sodium 2020-0 2020- No 25mg 25 mg, [facility] hyaluronate 6-26 - Intra-[facility] i ty of (viscosup) 16:00: 14:57 [place] ([place]) 00 :00 ONCE, 1 Medical intra-artic dose, Fri [facility] ular 09/01/19 at injection 1100, 25 mg Routine sodium 2020-0 2020- No 25mg 25 mg, [facility] hyaluronate 08-31 Intra-[facility] i ty of (viscosup) 16:00: 14:57 [place] (SU[place]) 00 :00 ONCE, 1 Medical intra-artic dose, Fri [facility] ular 09/01/19 at injection 1100, 25 mg Routine sodium 2020-0 2020- No 25mg [facility] hyaluronate -31 08- ity of (viscosup) 16:00: 14:57 [place] (SUPARTZ) 00 :00 Medical intra-artic Branch ular injection 25 mg sodium 2020-0 2020- No 25mg [facility] hyaluronate -31 08- ity of (viscosup) 16:00: 14:57 [place] (SUPARTZ) 00 :00 Medical intra-artic Branch ular injection 25 mg sodium 2020-0 2020- No 25mg 25 mg, [facility] hyaluronate 08-31 Intra-[facility] i ty of (viscosup) 16:00: 14:57 [place] [place] (SUPARTZ) 00 :00 ONCE, 1 Medical intra-artic dose, Fri [facility] ular 09/01/19 at injection 1100, 25 mg Routine sodium 2020-0 2020- No 25mg 25 mg, [facility] hyaluronate 08-31 Intra-s[facility] i ty of (viscosup) 16:00: 14:57 [place] [facility] [place] (SUPARTZ) 00 :00 ONCE, 1 Medical intra-artic dose, Fri [facility] ular 09/01/19 at injection 1100, 25 mg Routine sodium 2020-0 2020- No 25mg [facility] hyaluronate -24 08- ity of (viscosup) 15:45: 15:40 [place] (SUPARTZ) 00 :00 Medical intra-artic Branch ular injection 25 mg sodium 2020-0 2020- No 25mg [facility] hyaluronate 6-24 08- ity of (viscosup) 15:45: 15:40 [place] (SUPARTZ) 00 :00 Medical intra-artic Branch ular injection 25 mg sodium 2020-0 2020- No 25mg 25 mg, [facility] hyaluronate -24 08- [facility] [facility] ty of (viscosup) 15:45: 15:40 [place] (SUPARTZ) 00 :00 ONCE, 1 Medical intra-artic dose, Fri [facility] ular 08/25/19 at injection 1045, 25 mg Routine sodium 2020-0 2020- No 25mg 25 mg, [facility] hyaluronate 6-08-24 [facility]-[place] i ty of (viscosup) 15:45: 15:40 [place] (SU[place]) 00 :00 ONCE, 1 Medical intra-artic dose, Fri [facility] ular 08/25/19 at injection 1045, 25 mg Routine sodium 2020-0 2020- No 20mg [facility] hyaluronate 3-20 03-20 ity of (viscosup) 16:30: 15:59 [place] (SUPARTZ) 00 :00 Medical intra-artic Branch ular injection 20 mg sodium 2020-0 2020- No 20mg [facility] hyaluronate 3-20 03-20 ity of (viscosup) 16:30: 15:59 [place] (SUPARTZ) 00 :00 Medical intra-artic Branch ular injection 20 mg sodium 2020-0 2020- No 20mg 20 mg, [facility] hyaluronate 3-20 03-20 Intra-[place] i ty of (viscosup) 16:30: 15:59 [place] (SUPARTZ) 00 :00 ONCE, 1 Medical intra-artic dose, Fri [facility] ular 05/26/19 at injection 1130, 20 mg Routine sodium 2020-0 2020- No 20mg 20 mg, [facility] hyaluronate 3-20 03-20 [facility]-[place] i ty of (viscosup) 16:30: 15:59 [place] (SUPARTZ) 00 :00 ONCE, 1 Medical intra-artic dose, Fri [facility] ular 05/26/19 at injection 1130, 20 mg Routine sodium 2020-0 2020- No 20mg [facility] hyaluronate 3-20 03-20 ity of (viscosup) 16:30: 15:59 [place] (SUPARTZ) 00 :00 Medical intra-artic Branch ular injection 20 mg sodium 2020-0 2020- No 20mg [facility] hyaluronate 3-20 03-20 ity of (viscosup) 16:30: 15:59 [place] (SUPARTZ) 00 :00 Medical intra-artic Branch ular injection 20 mg sodium 2020-0 2020- No 20mg 20 mg, [facility] hyaluronate 3-20 03-20 Intra-[place] i [place] of (viscosup) 16:30: 15:59 [place] 00 :00 ONCE, 1 Medical intra-artic dose, Fri [facility] ular 3/20/20 at injection 1130, 20 mg Routine sodium 2020-0 2020- No 20mg 20 mg, [facility] hyaluronate 3-20 03-20 Intra-[place] i [place] of (viscosup) 16:30: 15:59 [place] 00 :00 ONCE, 1 Medical intra-artic dose, Fri [facility] ular /20/20 at injection 1130, 20 mg Routine sodium 2020-0 2020- No 20mg [facility] hyaluronate 3-20 03-20 ity of (viscosup) 16:30: 15:59 [place] (SUPARTZ) 00 :00 Medical intra-artic Branch ular injection 20 mg sodium 2020-0 2020- No 20mg [facility] hyaluronate 3-20 03-20 ity of (viscosup) 16:30: 15:59 [place] (SUPARTZ) 00 :00 Medical intra-artic Branch ular injection 20 mg sodium 2020-0 2020- No 20mg 20 mg, [facility] hyaluronate 3-20 03-20 [facility]-[place] i [place] of (viscosup) 16:30: 15:59 [place] 00 :00 ONCE, 1 Medical intra-artic dose, Fri [facility] ular 320/20 at injection 1130, 20 mg Routine sodium 2020-0 2020- No 20mg 20 mg, [facility] hyaluronate 3-20 03-20 [facility]-[place] [facility] [place] of (viscosup) 16:30: 15:59 [place] 00 :00 ONCE, 1 Medical intra-artic dose, Fri [facility] ular 3/20/20 at injection 1130, 20 mg Routine sodium 2020-0 2020- No 20mg [facility] hyaluronate 3-13 03-13 ity of (viscosup) 16:45: 15:52 [place] (SUPARTZ) 00 :00 Medical intra-artic Branch ular injection 20 mg sodium 2020-0 2020- No 20mg [facility] hyaluronate 3-13 03-13 ity of (viscosup) 16:45: 15:52 [place] (SUPARTZ) 00 :00 Medical intra-artic Branch ular injection 20 mg sodium 2020-0 2020- No 20mg 20 mg, [facility] hyaluronate -05-18 Intra-[place] i ty of (viscosup) 16:45: 15:52 [place] (SUPARTZ) 00 :00 ONCE, 1 Medical intra-artic dose, Fri [facility] ular 05/19/19 at injection 1145, 20 mg Routine sodium 2020-0 2020- No 20mg 20 mg, [facility] hyaluronate -05-18 [place] of (viscosup) 16:45: 15:52 [place] (SUPARTZ) 00 :00 ONCE, 1 Medical intra-artic dose, Fri [facility] ular 05/19/19 at injection 1145, 20 mg Routine sodium 2020-0 2020- No 20mg [facility] hyaluronate 05-18 ity of (viscosup) 16:45: 15:52 [place] (SUPARTZ) 00 :00 Medical intra-artic Branch ular injection 20 mg sodium 2020-0 2020- No 20mg [facility] hyaluronate -05-18 ity of (viscosup) 16:45: 15:52 [place] (SUPARTZ) 00 :00 Medical intra-artic Branch ular injection 20 mg sodium 2020-0 2020- No 20mg 20 mg, [facility] hyaluronate -05-18 [facility]-[place] i [place] of (viscosup) 16:45: 15:52 [place] (SUPARTZ) 00 :00 ONCE, 1 Medical intra-artic dose, Fri [facility] ular 05/19/19 at injection 1145, 20 mg Routine sodium 2020-0 2020- No 20mg 20 mg, [facility] hyaluronate -05-18 [facility]-[place] i [place] of (viscosup) 16:45: 15:52 [place] (SUPARTZ) 00 :00 ONCE, 1 Medical intra-artic dose, Fri [facility] ular 05/19/19 at injection 1145, 20 mg Routine sodium 2020-0 2020- No 20mg [facility] hyaluronate -05-18 ity of (viscosup) 16:45: 15:52 [place] (SUPARTZ) 00 :00 Medical intra-artic Branch ular injection 20 mg sodium 2020-0 2020- No 20mg [facility] hyaluronate 05-18 ity of (viscosup) 16:45: 15:52 [place] (SUPARTZ) 00 :00 Medical intra-artic Branch ular injection 20 mg sodium 2020-0 2020- No 20mg 20 mg, [facility] hyaluronate 05-18 [facility]-[place] i [place] of (viscosup) 16:45: 15:52 [place] (SU[place]Z) 00 :00 ONCE, 1 Medical intra-artic dose, Fri [facility] ular 05/19/19 at injection 1145, 20 mg Routine sodium 2020-0 2020- No 20mg 20 mg, [facility] hyaluronate 05-18 Intra-[place] i ty of (viscosup) 16:45: 15:52 [place]imoJuan C s (SUPARTZ) 00 :00 ONCE, 1 Medical intra-artic dose, Fri [facility] ular 05/19/19 at injection 1145, 20 mg Routine iron 2018-0 Yes Take by [facility] bis-gly/FA/ 4-01 mouth. ity of C/B12/Ca/[place] 15:44: [place] cc (IRON 04 Medical 25/09 ORAL) Branch telmisartan 0 Yes 1{tbl} Take 1 Un [place] -hydrochlor 4- tablet by ity of othiazide 15:44: mouth [place] 80-25 mg 04 daily. Medical per tablet Branch glimepiride 2018- Yes 4mg Take 4 mg U nivers 4 mg tablet 4-01 by mouth 2 it y of 15:44: (two) [place] 04 times Medical daily. Branch OXcarbazepi 2018-0 Yes Take by Un [place] ne 150 mg 4-01 mouth 2 ity of tablet 15:44: (two) [place] 04 times Medical daily. Branch levETIRAcet 2019-0 Yes 500mg Take 500 U nivers am 500 mg 4-01 mg by ity of tablet 15:44: mouth 2 [place] 04 (two) Medical times Branch daily. aspirin 81 2019-0 Yes 81mg Take 81 mg U nivers mg chewable 4-01 by mouth ity of tablet 15:44: daily. [place] 04 Medical Branch multivit-mi 2018-0 Yes Take by Un [place] nerals/foli 4-01 mouth. ity of c acid 15:44: [place] ([place] [address] Medical VITAMINTS Branch ORAL) metformin 2019-0 Yes Take by [facility] ers HCl 4-01 mouth. ity of (METFORMIN 15:44: [place] ORAL) [address] [place] [address] Branch gabapentin 2018-0 Yes Take by Uni vers ER 300 mg 4-01 mouth ity of tablet, 15:44: daily. [place] [address] Medical release 24 Branch hr iron Yes Take by [facility] bis-gly/FA/ 4-01 mouth. ity of C/B12/Ca/[place] 15:44: [place] cc (IRON 04 Medical 25/09 ORAL) Branch telmisartan Yes 1{tbl} Take 1 Un [place] -hydrochlor 4- tablet by ity of othiazide 15:44: mouth [place] 80-25 mg 04 daily. Medical per tablet Branch glimepiride Yes 4mg Take 4 mg U nivers 4 mg tablet -01 by mouth 2 it y of 15:44: (two) [place] 04 times Medical daily. Branch OXcarbazepi Yes Take by Un [place] ne 150 mg 4-01 mouth 2 ity of tablet 15:44: (two) [place] 04 times Medical daily. Branch levETIRAcet 0 Yes 500mg Take 500 U nivers am 500 mg 4- mg by ity of tablet 15:44: mouth 2 [place] [address] (two) Medical times Branch daily. aspirin 81 2018-0 Yes 81mg Take 81 mg U nivers mg chewable 4-01 by mouth ity of tablet 15:44: daily. [address] multivit-mi Yes Take by Un [place] nerals/foli 4-01 mouth. ity of c acid 15:44: [place] ([place] [address] Medical VITAMINTS Branch ORAL) metformin 2018-0 Yes Take by [facility] ers HCl 4-01 mouth. ity of (METFORMIN 15:44: [place] ORAL) Medical Branch gabapentin 2018-0 Yes Take by [facility] vers ER 300 mg 4-01 mouth ity of tablet, 15:44: daily. [place] [address] Medical release 24 Branch hr iron Yes Take by [facility] bis-gly/FA/ 4-01 mouth. ity of C/B12/Ca/[place] 15:44: [facility] (IRON 04 Medical 25/09 ORAL) Branch telmisartan Yes 1{tbl} Take 1 Un [place] -hydrochlor 4-01 tablet by ity of othiazide 15:44: mouth [place] 80-25 mg 04 daily. Medical per tablet Branch glimepiride Yes 4mg Take 4 mg U nivers 4 mg tablet 4-01 by mouth 2 it y of 15:44: (two) [place] 04 times Medical daily. Branch OXcarbazepi Yes Take by Un [place] ne 150 mg 4-01 mouth 2 ity of tablet 15:44: (two) [place] 04 times Medical daily. Branch levETIRAcet Yes 500mg Take 500 U nivers am 500 mg 4-01 mg by ity of tablet 15:44: mouth 2 [place] 04 (two) Medical times Branch daily. aspirin 81 Yes 81mg Take 81 mg U nivers mg chewable 4-01 by mouth ity of tablet 15:44: daily. [place] [address] Medical Branch multivit-mi Yes Take by Un [place] nerals/foli 4-01 mouth. ity of c acid 15:44: [place] (CENTRUM 04 Medical VITAMINTS Branch ORAL) metformin Yes Take by Univ ers HCl 4-01 mouth. ity of (METFORMIN 15:44: [place] ORAL) Medical Branch gabapentin Yes Take by Uni vers ER 300 mg 4-01 mouth ity of tablet, 15:44: daily. [place] extended 04 Medical release 24 Branch hr iron Yes Take by [facility] bis-gly/FA/ 4-01 mouth. ity of C/B12/Ca/[place] 15:44: [place] cc (IRON 04 Medical 25/09 ORAL) Branch telmisartan Yes 1{tbl} Take 1 Un [place] -hydrochlor 4-01 tablet by ity of othiazide 15:44: mouth [place] 80-25 mg 04 daily. Medical per tablet Branch glimepiride Yes 4mg Take 4 mg U nivers 4 mg tablet 4-01 by mouth 2 it y of 15:44: (two) [place] 04 times Medical daily. Branch OXcarbazepi Yes Take by Un [place] ne 150 mg 4-01 mouth 2 ity of tablet 15:44: (two) [place] 04 times Medical daily. Branch levETIRAcet Yes 500mg Take 500 U nivers am 500 mg 4-01 mg by ity of tablet 15:44: mouth 2 [place] [address] (two) Medical times [place] daily. aspirin 81 Yes 81mg Take 81 mg U nivers mg chewable 4-01 by mouth ity of tablet 15:44: daily. [place] [address] Medical [place] multivit-mi Yes Take by Un [place] nerals/foli 4-01 mouth. ity of c acid 15:44: [place] ([place] [address] Medical VITAMINTS Branch ORAL) metformin Yes Take by [facility] ers HCl 4-01 mouth. ity of (METFORMIN 15:44: [place] ORAL) Medical Branch gabapentin Yes Take by Uni vers ER 300 mg 4-01 mouth ity of tablet, 15:44: daily. [place] [address] Medical release 24 Branch hr iron Yes Take by [facility] bis-gly/FA/ 4-01 mouth. ity of C/B12/Ca/[place] 15:44: [place] cc (IRON Medical 25/09 ORAL) Branch telmisartan Yes 1{tbl} Take 1 Un [place] -hydrochlor 4-01 tablet by ity of othiazide 15:44: mouth [place] 80-25 mg 04 daily. Medical per tablet Branch glimepiride Yes 4mg Take 4 mg U nivers 4 mg tablet 4-01 by mouth 2 it y of 15:44: (two) [place] [address] times Medical daily. Branch OXcarbazepi Yes Take by Un [place] ne 150 mg 4-01 mouth 2 ity of tablet 15:44: (two) [place] [address] times Medical daily. Branch levETIRAcet Yes 500mg Take 500 U nivers am 500 mg 4-01 mg by ity of tablet 15:44: mouth 2 [place] 04 (two) Medical times [place] daily. aspirin 81 Yes 81mg Take 81 mg U nivers mg chewable 4-01 by mouth ity of tablet 15:44: daily. [address] multivit-mi Yes Take by Un [place] nerals/foli 4-01 mouth. ity of c acid 15:44: [place] ([place] [address] Medical VITAMINTS Branch ORAL) metformin Yes Take by Univ ers HCl 4-01 mouth. ity of (METFORMIN 15:44: [place] ORAL) Medical Branch gabapentin Yes Take by Uni vers ER 300 mg 4-01 mouth ity of tablet, 15:44: daily. [place] extended Medical release 24 Branch hr iron Yes Take by [facility] bis-gly/FA/ 4-01 mouth. ity of C/B12/Ca/[place] 15:44: [place] cc (IRON 04 Medical /7 ORAL) Branch telmisartan Yes 1{tbl} Take 1 Un [place] -hydrochlor 4-01 tablet by ity of othiazide 15:44: mouth [place] 80-25 mg 04 daily. Medical per tablet Branch glimepiride Yes 4mg Take 4 mg U nivers 4 mg tablet 4-01 by mouth 2 it y of 15:44: (two) [place] 04 times Medical daily. Branch OXcarbazepi Yes Take by Un [place] ne 150 mg 4-01 mouth 2 ity of tablet 15:44: (two) [place] 04 times Medical daily. Branch levETIRAcet Yes 500mg Take 500 U nivers am 500 mg 4-01 mg by ity of tablet 15:44: mouth 2 [place] 04 (two) Medical times Branch daily. aspirin 81 Yes 81mg Take 81 mg U nivers mg chewable 4-01 by mouth ity of tablet 15:44: daily. [address] Branch multivit-mi Yes Take by Un [place] nerals/foli 4-01 mouth. ity of c acid 15:44: [place] (CENTR 04 Medical VITAMINTS Branch ORAL) metformin Yes Take by Univ ers HCl 4-01 mouth. ity of (METFORMIN 15:44: [place] ORAL) [address] [place] [address] Branch gabapentin Yes Take by Uni vers ER 300 mg 4-01 mouth ity of tablet, 15:44: daily. [place] extended Medical release 24 Branch hr iron Yes Take by [facility] bis-gly/FA/ 4-01 mouth. ity of C/B12/Ca/[place] 15:44: [place] cc (IRON 04 Medical /7 ORAL) Branch telmisartan Yes 1{tbl} Take 1 Un [place] -hydrochlor 4-01 tablet by ity of othiazide 15:44: mouth [place] 80-25 mg 04 daily. Medical per tablet Branch glimepiride Yes 4mg Take 4 mg U nivers 4 mg tablet 4-01 by mouth 2 it y of 15:44: (two) [place] 04 times Medical daily. Branch OXcarbazepi Yes Take by Un [place] ne 150 mg 4-01 mouth 2 ity of tablet 15:44: (two) [place] 04 times Medical daily. Branch levETIRAcet Yes 500mg Take 500 U nivers am 500 mg 4-01 mg by ity of tablet 15:44: mouth 2 [place] 04 (two) Medical times Branch daily. aspirin 81 Yes 81mg Take 81 mg U nivers mg chewable 4-01 by mouth ity of tablet 15:44: daily. [place] [address] Medical Branch multivit-mi Yes Take by Un [place] nerals/foli 4-01 mouth. ity of c acid 15:44: [place] (CENTRUM 04 Medical VITAMINTS Branch ORAL) metformin Yes Take by Univ ers HCl 4-01 mouth. ity of (METFORMIN 15:44: [place] ORAL) Medical Branch gabapentin Yes Take by Uni vers ER 300 mg 4-01 mouth ity of tablet, 15:44: daily. [place] extended 04 Medical release 24 Branch hr iron Yes Take by [facility] bis-gly/FA/ 4-01 mouth. ity of C/B12/Ca/[place] 15:44: [place] cc (IRON 04 Medical 25/09 ORAL) Branch telmisartan Yes 1{tbl} Take 1 Un [place] -hydrochlor 4-01 tablet by ity of othiazide 15:44: mouth [place] 80-25 mg 04 daily. Medical per tablet Branch glimepiride Yes 4mg Take 4 mg U nivers 4 mg tablet 4-01 by mouth 2 it y of 15:44: (two) [place] 04 times Medical daily. Branch OXcarbazepi 2018- Yes Take by Un [place] ne 150 mg 4-01 mouth 2 ity of tablet 15:44: (two) [place] 04 times Medical daily. Branch levETIRAcet Yes 500mg Take 500 U nivers am 500 mg 4-01 mg by ity of tablet 15:44: mouth 2 [place] 04 (two) Medical times Branch daily. aspirin 81 Yes 81mg Take 81 mg U nivers mg chewable 4-01 by mouth ity of tablet 15:44: daily. [place] [address] Medical Branch multivit-mi Yes Take by Un [place] nerals/foli 4-01 mouth. ity of c acid 15:44: [place] ([place] [address] Medical VITAMINTS Branch ORAL) metformin Yes Take by Univ ers HCl 4-01 mouth. ity of (METFORMIN 15:44: [place] ORAL) Medical Branch gabapentin Yes Take by Uni vers ER 300 mg 4-01 mouth ity of tablet, 15:44: daily. [place] extended Medical release 24 Branch hr iron Yes Take by [facility] bis-gly/FA/ 4-01 mouth. ity of C/B12/Ca/[place] 15:44: [place] cc ([place] [address] Medical 25/09 ORAL) Branch telmisartan Yes 1{tbl} Take 1 Un [place] -hydrochlor 4-01 tablet by ity of othiazide 15:44: mouth [place] 80-25 mg 04 daily. Medical per tablet Branch glimepiride Yes 4mg Take 4 mg U nivers 4 mg tablet 4-01 by mouth 2 it y of 15:44: (two) [place] 04 times Medical daily. Branch OXcarbazepi Yes Take by Un [place] ne 150 mg 4-01 mouth 2 ity of tablet 15:44: (two) [place] 04 times Medical daily. Branch levETIRAcet Yes 500mg Take 500 U nivers am 500 mg 4-01 mg by ity of tablet 15:44: mouth 2 [place] [address] (two) Medical times Branch daily. aspirin 81 2018- Yes 81mg Take 81 mg U nivers mg chewable 4-01 by mouth ity of tablet 15:44: daily. [address] Branch multivit-mi 2018- Yes Take by Un [place] nerals/foli 4-01 mouth. ity of c acid 15:44: [place] ([place] [address] Medical VITAMINTS Branch ORAL) metformin 2018- Yes Take by [facility] ers HCl 4-01 mouth. ity of (METFORMIN 15:44: [place] ORAL) Medical Branch gabapentin Yes Take by [facility] vers ER 300 mg 4-01 mouth ity of tablet, 15:44: daily. [facility] 04 Medical release 24 Branch hr iron Yes Take by [facility] bis-gly/FA/ 4-01 mouth. ity of C/B12/Ca/[place] 15:44: [place] cc (IRON 04 Medical 25/09 ORAL) Branch telmisartan Yes 1{tbl} Take 1 Un [place] -hydrochlor 4-01 tablet by ity of othiazide 15:44: mouth [place] 80-25 mg 04 daily. Medical per tablet Branch glimepiride Yes 4mg Take 4 mg U nivers 4 mg tablet 4-01 by mouth 2 it y of 15:44: (two) [place] 04 times Medical daily. Branch OXcarbazepi Yes Take by Un [place] ne 150 mg 4-01 mouth 2 ity of tablet 15:44: (two) [place] 04 times Medical daily. Branch levETIRAcet Yes 500mg Take 500 U nivers am 500 mg 4-01 mg by ity of tablet 15:44: mouth 2 [place] [address] (two) Medical times Branch daily. aspirin 81 Yes 81mg Take 81 mg U nivers mg chewable 4-01 by mouth ity of tablet 15:44: daily. [place] [address] Medical Branch multivit-mi Yes Take by Un [place] nerals/foli 4-01 mouth. ity of c acid 15:44: [place] (CENTRUM 04 Medical VITAMINTS Branch ORAL) metformin Yes Take by [facility] ers HCl 4-01 mouth. ity of (METFORMIN 15:44: [place] ORAL) Medical Branch gabapentin Yes Take by Uni vers ER 300 mg 4-01 mouth ity of tablet, 15:44: daily. [facility] 04 Medical release 24 Branch hr iron Yes Take by [facility] bis-gly/FA/ 4-01 mouth. ity of C/B12/Ca/[place] 15:44: [facility] (IRON 04 Medical 25/09 ORAL) Branch telmisartan Yes 1{tbl} Take 1 Un [place] -hydrochlor 4-01 tablet by ity of othiazide 15:44: mouth [place] 80-25 mg 04 daily. Medical per tablet Branch glimepiride Yes 4mg Take 4 mg U nivers 4 mg tablet 4-01 by mouth 2 it y of 15:44: (two) [place] 04 times Medical daily. Branch OXcarbazepi Yes Take by Un [place] ne 150 mg 4-01 mouth 2 ity of tablet 15:44: (two) [place] 04 times Medical daily. Branch levETIRAcet Yes 500mg Take 500 U nivers am 500 mg 4-01 mg by ity of tablet 15:44: mouth 2 [place] 04 (two) Medical times [place] daily. aspirin 81 Yes 81mg Take 81 mg U nivers mg chewable 4-01 by mouth ity of tablet 15:44: daily. [address] Branch multivit-mi Yes Take by Un [place] nerals/foli 4-01 mouth. ity of c acid 15:44: [place] (CENTRUM 04 Medical VITAMINTS Branch ORAL) metformin Yes Take by [facility] ers HCl 4-01 mouth. ity of (METFORMIN 15:44: [place] ORAL) Medical Branch gabapentin Yes Take by Uni vers ER 300 mg 4-01 mouth ity of tablet, 15:44: daily. [facility] 04 Medical release 24 Branch hr iron Yes Take by [facility] bis-gly/FA/ 4-01 mouth. ity of C/B12/Ca/[place] 15:44: [place] cc (IRON 04 Medical 25/09 ORAL) Branch telmisartan Yes 1{tbl} Take 1 Un [place] -hydrochlor 4- tablet by ity of othiazide 15:44: mouth [place] 80-25 mg 04 daily. Medical per tablet Branch glimepiride Yes 4mg Take 4 mg U nivers 4 mg tablet 4-01 by mouth 2 it y of 15:44: (two) [place] 04 times Medical daily. Branch OXcarbazepi Yes Take by Un [place] ne 150 mg 4-01 mouth 2 ity of tablet 15:44: (two) [place] 04 times Medical daily. Branch levETIRAcet Yes 500mg Take 500 U nivers am 500 mg 4-01 mg by ity of tablet 15:44: mouth 2 [place] 04 (two) Medical times [place] daily. aspirin 81 Yes 81mg Take 81 mg U nivers mg chewable 4-01 by mouth ity of tablet 15:44: daily. [address] Branch multivit-mi Yes Take by Un [place] nerals/foli 4-01 mouth. ity of c acid 15:44: [place] ([place] [address] Medical VITAMINTS Branch ORAL) metformin 2019-0 Yes Take by Univ ers HCl 4-01 mouth. ity of (METFORMIN 15:44: [place] ORAL) Medical Branch gabapentin 2018-0 Yes Take by [facility] vers ER 300 mg 4-01 mouth ity of tablet, 15:44: daily. [place] extended Medical release 24 Branch hr iron Yes Take by [facility] bis-gly/FA/ 4-01 mouth. ity of C/B12/Ca/[place] 15:44: [place] cc (IRON 04 Medical / ORAL) Branch telmisartan 2019- Yes 1{tbl} Take 1 Un [place] -hydrochlor 4- tablet by ity of othiazide 15:44: mouth [place] 80-25 mg 04 daily. Medical per tablet Branch glimepiride Yes 4mg Take 4 mg U nivers 4 mg tablet 4-01 by mouth 2 it y of 15:44: (two) [place] 04 times Medical daily. Branch OXcarbazepi 2018- Yes Take by Un [place] ne 150 mg 4-01 mouth 2 ity of tablet 15:44: (two) [place] 04 times Medical daily. Branch levETIRAcet 2018-0 Yes 500mg Take 500 U nivers am 500 mg 4- mg by ity of tablet 15:44: mouth 2 [place] 04 (two) Medical times Branch daily. aspirin 81 2018- Yes 81mg Take 81 mg U nivers mg chewable 4-01 by mouth ity of tablet 15:44: daily. [address] Branch multivit-mi 2018-0 Yes Take by Un [place] nerals/foli 4-01 mouth. ity of c acid 15:44: [place] ([place] [address] Medical VITAMINTS Branch ORAL) metformin 2018-0 Yes Take by [facility] ers HCl 4-01 mouth. ity of (METFORMIN 15:44: [place] ORAL) Medical Branch gabapentin 2018-0 Yes Take by [facility] vers ER 300 mg 4-01 mouth ity of tablet, 15:44: daily. [facility] Medical release 24 Branch hr iron 2018- Yes Take by [facility] bis-gly/FA/ 4-01 mouth. ity of C/B12/Ca/[place] 15:44: [place] cc (IRON 04 Medical 21/7 ORAL) Branch telmisartan Yes 1{tbl} Take 1 Un [place] -hydrochlor 4-01 tablet by ity of othiazide 15:44: mouth [place] 80-25 mg 04 daily. Medical per tablet Branch glimepiride Yes 4mg Take 4 mg U nivers 4 mg tablet 4-01 by mouth 2 it y of 15:44: (two) [place] 04 times Medical daily. Branch OXcarbazepi Yes Take by Un [place] ne 150 mg 4-01 mouth 2 ity of tablet 15:44: (two) [place] 04 times Medical daily. Branch levETIRAcet Yes 500mg Take 500 U nivers am 500 mg 4-01 mg by ity of tablet 15:44: mouth 2 [place] 04 (two) Medical times Branch daily. aspirin 81 Yes 81mg Take 81 mg U nivers mg chewable 4-01 by mouth ity of tablet 15:44: daily. [place] [address] Medical Branch multivit-mi Yes Take by Un [place] nerals/foli 4-01 mouth. ity of c acid 15:44: [place] (CENTRUM 04 Medical VITAMINTS Branch ORAL) metformin Yes Take by [facility] ers HCl 4-01 mouth. ity of (METFORMIN 15:44: [place] ORAL) Medical Branch gabapentin Yes Take by [facility] vers ER 300 mg 4-01 mouth ity of tablet, 15:44: daily. [place] extended 04 Medical release 24 Branch hr iron Yes Take by [facility] bis-gly/FA/ 4-01 mouth. ity of C/B12/Ca/[place] 15:44: [place] cc (IRON 04 Medical 25/09 ORAL) Branch telmisartan Yes 1{tbl} Take 1 Un [place] -hydrochlor 4-01 tablet by ity of othiazide 15:44: mouth [place] 80-25 mg 04 daily. Medical per tablet Branch glimepiride Yes 4mg Take 4 mg U nivers 4 mg tablet 4-01 by mouth 2 it y of 15:44: (two) [place] 04 times Medical daily. Branch OXcarbazepi Yes Take by Un [place] ne 150 mg 4-01 mouth 2 ity of tablet 15:44: (two) [place] 04 times Medical daily. Branch levETIRAcet Yes 500mg Take 500 U nivers am 500 mg 4-01 mg by ity of tablet 15:44: mouth 2 [place] [address] (two) Medical times [place] daily. aspirin 81 Yes 81mg Take 81 mg U nivers mg chewable 4-01 by mouth ity of tablet 15:44: daily. [place] [address] Medical Branch multivit-mi Yes Take by Un [place] nerals/foli 4-01 mouth. ity of c acid 15:44: [place] ([place] [address] Medical VITAMINTS Branch ORAL) metformin Yes Take by [facility] ers HCl 4-01 mouth. ity of (METFORMIN 15:44: [place] ORAL) Medical Branch gabapentin Yes Take by [facility] vers ER 300 mg 4-01 mouth ity of tablet, 15:44: daily. [place] [address] Medical release 24 Branch hr iron Yes Take by [facility] bis-gly/FA/ 4-01 mouth. ity of C/B12/Ca/[place] 15:44: [place] cc (IRON Medical 25/09 ORAL) Branch telmisartan Yes 1{tbl} Take 1 Un [place] -hydrochlor 4-01 tablet by ity of othiazide 15:44: mouth [place] 80-25 mg 04 daily. Medical per tablet Branch glimepiride Yes 4mg Take 4 mg U nivers 4 mg tablet 4-01 by mouth 2 it y of 15:44: (two) [place] 04 times Medical daily. Branch OXcarbazepi Yes Take by Un [place] ne 150 mg 4-01 mouth 2 ity of tablet 15:44: (two) [place] 04 times Medical daily. Branch levETIRAcet Yes 500mg Take 500 U nivers am 500 mg 4-01 mg by ity of tablet 15:44: mouth 2 [place] 04 (two) Medical times [place] daily. aspirin 81 Yes 81mg Take 81 mg U nivers mg chewable 4-01 by mouth ity of tablet 15:44: daily. [place] [address] Medical [place] multivit-mi Yes Take by [facility] nerals/foli 4-01 mouth. ity of c acid 15:44: [place] ([place] [address] Medical VITAMINTS Branch ORAL) metformin Yes Take by [facility] ers HCl 4-01 mouth. ity of (METFORMIN 15:44: [place] ORAL) Medical Branch gabapentin Yes Take by Uni vers ER 300 mg 4-01 mouth ity of tablet, 15:44: daily. [place] extended 04 Medical release 24 Branch hr iron Yes Take by [facility] bis-gly/FA/ 4-01 mouth. ity of C/B12/Ca/[place] 15:44: [place] cc (IRON 04 Medical 25/09 ORAL) Branch telmisartan Yes 1{tbl} Take 1 Un [place] -hydrochlor 4-01 tablet by ity of othiazide 15:44: mouth [place] 80-25 mg 04 daily. Medical per tablet Branch glimepiride Yes 4mg Take 4 mg U nivers 4 mg tablet 4-01 by mouth 2 it y of 15:44: (two) [place] 04 times Medical daily. Branch OXcarbazepi Yes Take by [facility] ne 150 mg 4-01 mouth 2 ity of tablet 15:44: (two) [place] 04 times Medical daily. Branch levETIRAcet Yes 500mg Take 500 U nivers am 500 mg 4- mg by ity of tablet 15:44: mouth 2 [place] 04 (two) Medical times Branch daily. aspirin 81 Yes 81mg Take 81 mg U nivers mg chewable -01 by mouth ity of tablet 15:44: daily. [address] multivit-mi Yes Take by [facility] nerals/foli 4-01 mouth. ity of c acid 15:44: [place] ([facility] Medical VITAMINTS Branch ORAL) metformin Yes Take by Univ ers HCl 4-01 mouth. ity of (METFORMIN 15:44: [place] ORAL) [address] [place] [address] Branch gabapentin 0 Yes Take by Uni vers ER 300 mg 4-01 mouth ity of tablet, 15:44: daily. [place] extended Medical release 24 Branch hr iron Yes Take by [facility] bis-gly/FA/ 4-01 mouth. ity of C/B12/Ca/[place] 15:44: [place] cc (IRON 04 Medical / ORAL) Branch telmisartan Yes 1{tbl} Take 1 Un [place] -hydrochlor 4-01 tablet by ity of othiazide 15:44: mouth [place] 80-25 mg 04 daily. Medical per tablet Branch glimepiride Yes 4mg Take 4 mg U nivers 4 mg tablet 4-01 by mouth 2 it y of 15:44: (two) [place] 04 times Medical daily. Branch OXcarbazepi Yes Take by [facility] [place] ne 150 mg 4-01 mouth 2 ity of tablet 15:44: (two) [place] 04 times Medical daily. Branch levETIRAcet Yes 500mg Take 500 U nivers am 500 mg 4-01 mg by ity of tablet 15:44: mouth 2 [place] 04 (two) Medical times Branch daily. aspirin 81 Yes 81mg Take 81 mg U nivers mg chewable 4-01 by mouth ity of tablet 15:44: daily. [address] Branch multivit-mi Yes Take by [facility] nerals/foli 4-01 mouth. ity of c acid 15:44: [place] ([facility] 04 Medical VITAMINTS Branch ORAL) metformin Yes Take by Univ ers HCl 4-01 mouth. ity of (METFORMIN 15:44: [place] ORAL) Medical Branch gabapentin Yes Take by Uni vers ER 300 mg 4-01 mouth ity of tablet, 15:44: daily. [place] extended 04 Medical release 24 Branch hr iron Yes Take by [facility] bis-gly/FA/ 4-01 mouth. ity of C/B12/Ca/[place] 15:44: [place] cc (IRON 04 Medical 25/09 ORAL) Branch telmisartan Yes 1{tbl} Take 1 Un [place] -hydrochlor 4-01 tablet by ity of othiazide 15:44: mouth [place] 80-25 mg 04 daily. Medical per tablet Branch glimepiride Yes 4mg Take 4 mg U nivers 4 mg tablet 4-01 by mouth 2 it y of 15:44: (two) [place] 04 times Medical daily. Branch OXcarbazepi Yes Take by [facility] [place] ne 150 mg 4-01 mouth 2 ity of tablet 15:44: (two) [place] 04 times Medical daily. Branch levETIRAcet Yes 500mg Take 500 U nivers am 500 mg 4-01 mg by ity of tablet 15:44: mouth 2 [place] 04 (two) Medical times Branch daily. aspirin 81 Yes 81mg Take 81 mg U nivers mg chewable 4-01 by mouth ity of tablet 15:44: daily. [address] Branch multivit-mi 2018- Yes Take by [facility] nerals/foli 4-01 mouth. ity of c acid 15:44: [place] ([place] [address] Medical VITAMINTS Branch ORAL) metformin Yes Take by Univ ers HCl 4-01 mouth. ity of (METFORMIN 15:44: [place] ORAL) [address] [place] [address] Branch gabapentin Yes Take by Uni vers ER 300 mg 4-01 mouth ity of tablet, 15:44: daily. [place] extended Medical release 24 Branch hr iron Yes Take by [facility] bis-gly/FA/ 4-01 mouth. ity of C/B12/Ca/[place] 15:44: [place] cc (IRON Medical 25/09 ORAL) Branch telmisartan Yes 1{tbl} Take 1 [facility] [place] -hydrochlor 4-01 tablet by ity of othiazide 15:44: mouth [place] 80-25 mg 04 daily. Medical per tablet Branch glimepiride Yes 4mg Take 4 mg U nivers 4 mg tablet 4-01 by mouth 2 it y of 15:44: (two) [place] 04 times Medical daily. Branch OXcarbazepi Yes Take by Un [place] ne 150 mg 4-01 mouth 2 ity of tablet 15:44: (two) [place] 04 times Medical daily. Branch levETIRAcet Yes 500mg Take 500 U nivers am 500 mg 4-01 mg by ity of tablet 15:44: mouth 2 [place] 04 (two) Medical times Branch daily. aspirin 81 Yes 81mg Take 81 mg U nivers mg chewable 4-01 by mouth ity of tablet 15:44: daily. [address] Branch multivit-mi 2018- Yes Take by [facility] nerals/foli 4-01 mouth. ity of c acid 15:44: [place] ([place] [address] Medical VITAMINTS Branch ORAL) metformin Yes Take by Univ ers HCl 4-01 mouth. ity of (METFORMIN 15:44: [place] ORAL) Medical Branch gabapentin Yes Take by Uni vers ER 300 mg 4-01 mouth ity of tablet, 15:44: daily. [place] extended 04 Medical release 24 Branch hr iron Yes Take by [facility] bis-gly/FA/ 4-01 mouth. ity of C/B12/Ca/[place] 15:44: [place] cc (IRON 04 Medical 25/09 ORAL) Branch telmisartan Yes 1{tbl} Take 1 Un [place] -hydrochlor 4-01 tablet by ity of othiazide 15:44: mouth [place] 80-25 mg 04 daily. Medical per tablet Branch glimepiride Yes 4mg Take 4 mg U nivers 4 mg tablet 4-01 by mouth 2 it y of 15:44: (two) [place] 04 times Medical daily. Branch OXcarbazepi Yes Take by Un [place] ne 150 mg 4-01 mouth 2 ity of tablet 15:44: (two) [place] 04 times Medical daily. Branch levETIRAcet Yes 500mg Take 500 U nivers am 500 mg 4-01 mg by ity of tablet 15:44: mouth 2 [place] (two) Medical times Branch daily. aspirin 81 Yes 81mg Take 81 mg U nivers mg chewable 4-01 by mouth ity of tablet 15:44: daily. [address] Branch multivit-mi Yes Take by [facility] nerals/foli 4-01 mouth. ity of c acid 15:44: [place] ([facility] Medical VITAMINTS Branch ORAL) metformin Yes Take by [facility] ers HCl 4-01 mouth. ity of (METFORMIN 15:44: [place] ORAL) [address] [place] [address] Branch gabapentin Yes Take by Uni vers ER 300 mg 4-01 mouth ity of tablet, 15:44: daily. [place] extended 04 Medical release 24 Branch hr iron Yes Take by [facility] bis-gly/FA/ 4-01 mouth. ity of C/B12/Ca/[place] 15:44: [facility] (IRON 04 Medical 25/09 ORAL) Branch telmisartan Yes 1{tbl} Take 1 Un [place] -hydrochlor 4-01 tablet by ity of othiazide 15:44: mouth [place] 80-25 mg 04 daily. Medical per tablet Branch glimepiride Yes 4mg Take 4 mg U nivers 4 mg tablet 4-01 by mouth 2 it y of 15:44: (two) [place] 04 times Medical daily. Branch OXcarbazepi Yes Take by Un [place] ne 150 mg 4-01 mouth 2 ity of tablet 15:44: (two) [place] 04 times Medical daily. Branch levETIRAcet Yes 500mg Take 500 U nivers am 500 mg 4-01 mg by ity of tablet 15:44: mouth 2 [place] 04 (two) Medical times [place] daily. aspirin 81 Yes 81mg Take 81 mg U nivers mg chewable 4-01 by mouth ity of tablet 15:44: daily. [place] [address] Medical Branch multivit-mi Yes Take by Un [facility] nerals/foli 4-01 mouth. ity of c acid 15:44: [place] ([facility] 04 Medical VITAMINTS Branch ORAL) metformin Yes Take by Univ ers HCl 4-01 mouth. ity of (METFORMIN 15:44: [place] ORAL) Medical Branch gabapentin Yes Take by Uni vers ER 300 mg 4-01 mouth ity of tablet, 15:44: daily. [facility] 04 Medical release 24 Branch hr iron Yes Take by [facility] bis-gly/FA/ 4-01 mouth. ity of C/B12/Ca/[place] 15:44: [place] cc (IRON 04 Medical 25/09 ORAL) Branch telmisartan Yes 1{tbl} Take 1 Un [place] -hydrochlor 4-01 tablet by ity of othiazide 15:44: mouth [place] 80-25 mg 04 daily. Medical per tablet Branch glimepiride Yes 4mg Take 4 mg U nivers 4 mg tablet 4-01 by mouth 2 it y of 15:44: (two) [place] 04 times Medical daily. Branch OXcarbazepi Yes Take by Un [place] ne 150 mg 4-01 mouth 2 ity of tablet 15:44: (two) [place] 04 times Medical daily. Branch levETIRAcet Yes 500mg Take 500 U nivers am 500 mg 4-01 mg by ity of tablet 15:44: mouth 2 [place] 04 (two) Medical times [place] daily. aspirin 81 Yes 81mg Take 81 mg U nivers mg chewable 4-01 by mouth ity of tablet 15:44: daily. [place] [address] Medical Branch multivit-mi 2019-0 Yes Take by Un [facility] nerals/foli 4-01 mouth. ity of c acid 15:44: [place] ([place] [address] Medical VITAMINTS Branch ORAL) metformin 2018-0 Yes Take by [facility] ers HCl 4-01 mouth. ity of (METFORMIN 15:44: [place] ORAL) Medical Branch gabapentin 2018-0 Yes Take by Uni vers ER 300 mg 4-01 mouth ity of tablet, 15:44: daily. [place] extended Medical release 24 Branch hr iron Yes Take by [facility] bis-gly/FA/ 4-01 mouth. ity of C/B12/Ca/[place] 15:44: [place] cc (IRON 04 Medical / ORAL) Branch telmisartan Yes 1{tbl} Take 1 Un [place] -hydrochlor 4-01 tablet by ity of othiazide 15:44: mouth [place] 80-25 mg 04 daily. Medical per tablet Branch glimepiride 2018-0 Yes 4mg Take 4 mg U nivers 4 mg tablet 4-01 by mouth 2 it y of 15:44: (two) [place] 04 times Medical daily. Branch OXcarbazepi 2018- Yes Take by Un [place] ne 150 mg 4-01 mouth 2 ity of tablet 15:44: (two) [place] 04 times Medical daily. Branch levETIRAcet 0 Yes 500mg Take 500 U nivers am 500 mg 4-01 mg by ity of tablet 15:44: mouth 2 [place] 04 (two) Medical times Branch daily. aspirin 81 2018-0 Yes 81mg Take 81 mg U nivers mg chewable 4-01 by mouth ity of tablet 15:44: daily. [address] multivit-mi 2018- Yes Take by Un [facility] nerals/foli 4-01 mouth. ity of c acid 15:44: [place] ([place] [address] Medical VITAMINTS Branch ORAL) metformin 2018-0 Yes Take by [facility] ers HCl 4-01 mouth. ity of (METFORMIN 15:44: [place] ORAL) Medical Branch gabapentin 2018-0 Yes Take by Uni vers ER 300 mg 4-01 mouth ity of tablet, 15:44: daily. [facility] Medical release 24 Branch hr iron Yes Take by [facility] bis-gly/FA/ 4-01 mouth. ity of C/B12/Ca/[place] 15:44: [place] cc (IRON 04 Medical 21/7 ORAL) Branch telmisartan Yes 1{tbl} Take 1 Un [place] -hydrochlor 4-01 tablet by ity of othiazide 15:44: mouth [place] 80-25 mg 04 daily. Medical per tablet Branch glimepiride Yes 4mg Take 4 mg U nivers 4 mg tablet 4-01 by mouth 2 it y of 15:44: (two) [place] 04 times Medical daily. Branch OXcarbazepi Yes Take by Un [place] ne 150 mg 4-01 mouth 2 ity of tablet 15:44: (two) [place] 04 times Medical daily. Branch levETIRAcet Yes 500mg Take 500 U nivers am 500 mg 4-01 mg by ity of tablet 15:44: mouth 2 [place] 04 (two) Medical times Branch daily. aspirin 81 Yes 81mg Take 81 mg U nivers mg chewable 4-01 by mouth ity of tablet 15:44: daily. [place] [address] Medical Branch multivit-mi Yes Take by Un [facility] nerals/foli 4-01 mouth. ity of c acid 15:44: [place] ([facility] 04 Medical VITAMINTS Branch ORAL) metformin Yes Take by Univ ers HCl 4-01 mouth. ity of (METFORMIN 15:44: [place] ORAL) 04 Medical Branch gabapentin Yes Take by Uni vers ER 300 mg 4-01 mouth ity of tablet, 15:44: daily. [place] extended 04 Medical release 24 Branch hr iron Yes Take by [facility] bis-gly/FA/ 4-01 mouth. ity of C/B12/Ca/[place] 15:44: [place] cc (IRON 04 Medical 25/09 ORAL) Branch telmisartan Yes 1{tbl} Take 1 Un [place] -hydrochlor 4-01 tablet by ity of othiazide 15:44: mouth [place] 80-25 mg 04 daily. Medical per tablet Branch glimepiride Yes 4mg Take 4 mg U nivers 4 mg tablet 4-01 by mouth 2 it y of 15:44: (two) [place] 04 times Medical daily. Branch OXcarbazepi Yes Take by Un [place] ne 150 mg 4-01 mouth 2 ity of tablet 15:44: (two) [place] 04 times Medical daily. Branch levETIRAcet 2019 Yes 500mg Take 500 U nivers am 500 mg 4-01 mg by ity of tablet 15:44: mouth 2 [place] 04 (two) Medical times Branch daily. aspirin 81 Yes 81mg Take 81 mg U nivers mg chewable 4-01 by mouth ity of tablet 15:44: daily. [place] [address] Medical Branch multivit-mi Yes Take by Un [facility] nerals/foli 4-01 mouth. ity of c acid 15:44: [place] ([place] [address] Medical VITAMINTS Branch ORAL) metformin Yes Take by Univ ers HCl 4-01 mouth. ity of (METFORMIN 15:44: [place] ORAL) Medical Branch gabapentin Yes Take by Uni vers ER 300 mg 4-01 mouth ity of tablet, 15:44: daily. [place] [address] Medical release 24 Branch hr iron Yes Take by [facility] bis-gly/FA/ 4-01 mouth. ity of C/B12/Ca/[place] 15:44: [place] cc (IRON Medical 25/09 ORAL) Branch telmisartan Yes 1{tbl} Take 1 Un [place] -hydrochlor 4-01 tablet by ity of othiazide 15:44: mouth [place] 80-25 mg 04 daily. Medical per tablet Branch glimepiride Yes 4mg Take 4 mg U nivers 4 mg tablet 4-01 by mouth 2 it y of 15:44: (two) [place] 04 times Medical daily. Branch OXcarbazepi Yes Take by Un [place] ne 150 mg 4-01 mouth 2 ity of tablet 15:44: (two) [place] 04 times Medical daily. Branch levETIRAcet Yes 500mg Take 500 U nivers am 500 mg 4-01 mg by ity of tablet 15:44: mouth 2 [place] 04 (two) Medical times [place] daily. aspirin 81 Yes 81mg Take 81 mg U nivers mg chewable 4-01 by mouth ity of tablet 15:44: daily. [place] [address] Medical Branch multivit-mi Yes Take by Un [facility] nerals/foli 4-01 mouth. ity of c acid 15:44: [place] [facility] Branch ORAL) metformin Yes Take by Univ ers HCl 4-01 mouth. ity of (METFORMIN 15:44: [place] ORAL) Medical Branch gabapentin Yes Take by Uni vers ER 300 mg 4-01 mouth ity of tablet, 15:44: daily. [place] extended 04 Medical release 24 Branch hr iron Yes Take by [facility] bis-gly/FA/ 4-01 mouth. ity of C/B12/Ca/[place] 15:44: [place] cc (IRON 04 Medical /7 ORAL) Branch telmisartan Yes 1{tbl} Take 1 Un [place] -hydrochlor 4-01 tablet by ity of othiazide 15:44: mouth [place] 80-25 mg 04 daily. Medical per tablet Branch glimepiride Yes 4mg Take 4 mg U nivers 4 mg tablet 4-01 by mouth 2 it y of 15:44: (two) [place] 04 times Medical daily. Branch OXcarbazepi Yes Take by Un [place] ne 150 mg 4-01 mouth 2 ity of tablet 15:44: (two) [place] [address] times Medical daily. Branch levETIRAcet Yes 500mg Take 500 U nivers am 500 mg 4-01 mg by ity of tablet 15:44: mouth 2 [place] 04 (two) Medical times Branch daily. aspirin 81 Yes 81mg Take 81 mg U nivers mg chewable 4-01 by mouth ity of tablet 15:44: daily. [address] multivit-mi Yes Take by Un [facility] nerals/foli 4-01 mouth. ity of c acid 15:44: [place] [facility] Branch ORAL) metformin 0 Yes Take by [facility] ers HCl 4-01 mouth. ity of (METFORMIN 15:44: [place] ORAL) Medical Branch gabapentin 2018-0 Yes Take by Uni vers ER 300 mg 4-01 mouth ity of tablet, 15:44: daily. [place] extended 04 Medical release 24 Branch hr iron Yes Take by [facility] bis-gly/FA/ 4-01 mouth. ity of C/B12/Ca/[place] 15:44: [place] cc (IRON 04 Medical 21/7 ORAL) Branch telmisartan Yes 1{tbl} Take 1 Un [place] -hydrochlor 4-01 tablet by ity of othiazide 15:44: mouth [place] 80-25 mg 04 daily. Medical per tablet Branch glimepiride Yes 4mg Take 4 mg U nivers 4 mg tablet 4-01 by mouth 2 it y of 15:44: (two) [place] 04 times Medical daily. Branch OXcarbazepi Yes Take by Un [place] ne 150 mg 4-01 mouth 2 ity of tablet 15:44: (two) [place] 04 times Medical daily. Branch levETIRAcet Yes 500mg Take 500 U nivers am 500 mg 4-01 mg by ity of tablet 15:44: mouth 2 [place] 04 (two) Medical times Branch daily. aspirin 81 Yes 81mg Take 81 mg U nivers mg chewable 4-01 by mouth ity of tablet 15:44: daily. [address] Branch multivit-mi Yes Take by Un [facility] nerals/foli 4-01 mouth. ity of c acid 15:44: [place] ([facility] 04 Medical VITAMINTS Branch ORAL) metformin Yes Take by Univ ers HCl 4-01 mouth. ity of (METFORMIN 15:44: [place] ORAL) Medical Branch gabapentin Yes Take by Uni vers ER 300 mg 4-01 mouth ity of tablet, 15:44: daily. [place] extended 04 Medical release 24 Branch hr iron Yes Take by [facility] bis-gly/FA/ 4-01 mouth. ity of C/B12/Ca/[place] 15:44: [place] cc (IRON 04 Medical 25/09 ORAL) Branch telmisartan Yes 1{tbl} Take 1 Un [place] -hydrochlor 4-01 tablet by ity of othiazide 15:44: mouth [place] 80-25 mg 04 daily. Medical per tablet Branch glimepiride Yes 4mg Take 4 mg U nivers 4 mg tablet 4-01 by mouth 2 it y of 15:44: (two) [place] 04 times Medical daily. Branch OXcarbazepi Yes Take by Un [place] ne 150 mg 4-01 mouth 2 ity of tablet 15:44: (two) [place] 04 times Medical daily. Branch levETIRAcet Yes 500mg Take 500 U nivers am 500 mg 4-01 mg by ity of tablet 15:44: mouth 2 [place] 04 (two) Medical times [place] daily. aspirin 81 Yes 81mg Take 81 mg U nivers mg chewable 4-01 by mouth ity of tablet 15:44: daily. [address] Branch multivit-mi 2018- Yes Take by Un [facility] nerals/foli 4-01 mouth. ity of c acid 15:44: [place] ([place] [address] Medical VITAMINTS Branch ORAL) metformin Yes Take by Univ ers HCl 4-01 mouth. ity of (METFORMIN 15:44: [place] ORAL) Medical Branch gabapentin Yes Take by Uni vers ER 300 mg 4-01 mouth ity of tablet, 15:44: daily. [place] extended Medical release 24 Branch hr iron Yes Take by [facility] bis-gly/FA/ 4-01 mouth. ity of C/B12/Ca/[place] 15:44: [place] cc (IRON 04 Medical 25/09 ORAL) Branch telmisartan Yes 1{tbl} Take 1 Un [place] -hydrochlor 4-01 tablet by ity of othiazide 15:44: mouth [place] 80-25 mg 04 daily. Medical per tablet Branch glimepiride Yes 4mg Take 4 mg U nivers 4 mg tablet 4-01 by mouth 2 it y of 15:44: (two) [place] 04 times Medical daily. Branch OXcarbazepi Yes Take by Un [place] ne 150 mg 4-01 mouth 2 ity of tablet 15:44: (two) [place] 04 times Medical daily. Branch levETIRAcet Yes 500mg Take 500 U nivers am 500 mg 4-01 mg by ity of tablet 15:44: mouth 2 [place] [address] (two) Medical times Branch daily. aspirin 81 Yes 81mg Take 81 mg U nivers mg chewable 4-01 by mouth ity of tablet 15:44: daily. [address] Branch multivit-mi 2018- Yes Take by Un [place] nerals/foli 4-01 mouth. ity of c acid 15:44: [place] ([place] [address] Medical VITAMINTS Branch ORAL) metformin 2018- Yes Take by Univ ers HCl 4-01 mouth. ity of (METFORMIN 15:44: [place] ORAL) Medical Branch gabapentin 2018- Yes Take by Uni vers ER 300 mg 4-01 mouth ity of tablet, 15:44: daily. [place] extended 04 Medical release 24 Branch hr iron Yes Take by [facility] bis-gly/FA/ 4-01 mouth. ity of C/B12/Ca/[place] 15:44: [place] cc (IRON 04 Medical 25/09 ORAL) Branch telmisartan Yes 1{tbl} Take 1 Un [place] -hydrochlor 4-01 tablet by ity of othiazide 15:44: mouth [place] 80-25 mg 04 daily. Medical per tablet Branch glimepiride Yes 4mg Take 4 mg U nivers 4 mg tablet 4-01 by mouth 2 it y of 15:44: (two) [place] 04 times Medical daily. Branch OXcarbazepi Yes Take by Un [place] ne 150 mg 4-01 mouth 2 ity of tablet 15:44: (two) [place] 04 times Medical daily. Branch levETIRAcet Yes 500mg Take 500 U nivers am 500 mg 4-01 mg by ity of tablet 15:44: mouth 2 [place] 04 (two) Medical times Branch daily. aspirin 81 Yes 81mg Take 81 mg U nivers mg chewable 4-01 by mouth ity of tablet 15:44: daily. [address] Branch multivit-mi Yes Take by Un [place] nerals/foli 4-01 mouth. ity of c acid 15:44: [place] ([facility] Medical VITAMINTS Branch ORAL) metformin Yes Take by [facility] ers HCl 4-01 mouth. ity of (METFORMIN 15:44: [place] ORAL) Medical Branch gabapentin Yes Take by Uni vers ER 300 mg 4-01 mouth ity of tablet, 15:44: daily. [facility] 04 Medical release 24 Branch hr iron Yes Take by [facility] bis-gly/FA/ 4-01 mouth. ity of C/B12/Ca/[place] 15:44: [facility] (IRON 04 Medical 25/09 ORAL) Branch telmisartan Yes 1{tbl} Take 1 Un [place] -hydrochlor 4-01 tablet by ity of othiazide 15:44: mouth [place] 80-25 mg 04 daily. Medical per tablet Branch glimepiride Yes 4mg Take 4 mg U nivers 4 mg tablet 4-01 by mouth 2 it y of 15:44: (two) [place] 04 times Medical daily. Branch OXcarbazepi Yes Take by Un [place] ne 150 mg 4-01 mouth 2 ity of tablet 15:44: (two) [place] 04 times Medical daily. Branch levETIRAcet Yes 500mg Take 500 U nivers am 500 mg 4-01 mg by ity of tablet 15:44: mouth 2 [place] 04 (two) Medical times [place] daily. aspirin 81 Yes 81mg Take 81 mg U nivers mg chewable 4-01 by mouth ity of tablet 15:44: daily. [address] Branch multivit-mi Yes Take by Un [facility] nerals/foli 4-01 mouth. ity of c acid 15:44: [place] ([facility] 04 Medical VITAMINTS Branch ORAL) metformin Yes Take by Univ ers HCl 4-01 mouth. ity of (METFORMIN 15:44: [place] ORAL) Medical Branch gabapentin Yes Take by Uni vers ER 300 mg 4-01 mouth ity of tablet, 15:44: daily. [facility] 04 Medical release 24 Branch hr iron Yes Take by [facility] bis-gly/FA/ 4-01 mouth. ity of C/B12/Ca/[place] 15:44: [place] cc (IRON 04 Medical 25/09 ORAL) Branch telmisartan Yes 1{tbl} Take 1 Un [place] -hydrochlor 4-01 tablet by ity of othiazide 15:44: mouth [place] 80-25 mg 04 daily. Medical per tablet Branch glimepiride Yes 4mg Take 4 mg U nivers 4 mg tablet 4-01 by mouth 2 it y of 15:44: (two) [place] 04 times Medical daily. Branch OXcarbazepi Yes Take by Un [place] ne 150 mg 4-01 mouth 2 ity of tablet 15:44: (two) [place] 04 times Medical daily. Branch levETIRAcet Yes 500mg Take 500 U nivers am 500 mg 4-01 mg by ity of tablet 15:44: mouth 2 [place] [address] (two) Medical times [place] daily. aspirin 81 Yes 81mg Take 81 mg U nivers mg chewable 4-01 by mouth ity of tablet 15:44: daily. [address] Branch multivit-mi Yes Take by Un [facility] nerals/foli 4-01 mouth. ity of c acid 15:44: [place] ([place] [address] Medical VITAMINTS Branch ORAL) metformin Yes Take by [facility] ers HCl 4-01 mouth. ity of (METFORMIN 15:44: [place] ORAL) Medical Branch gabapentin Yes Take by Uni vers ER 300 mg 4-01 mouth ity of tablet, 15:44: daily. [facility] Medical release 24 Branch hr iron Yes Take by [facility] bis-gly/FA/ 4-01 mouth. ity of C/B12/Ca/[place] 15:44: [place] cc (IRON 04 Medical / ORAL) Branch telmisartan Yes 1{tbl} Take 1 [facility] [place] -hydrochlor 4-01 tablet by ity of othiazide 15:44: mouth [place] 80-25 mg 04 daily. Medical per tablet Branch glimepiride Yes 4mg Take 4 mg U nivers 4 mg tablet -01 by mouth 2 it y of 15:44: (two) [place] 04 times Medical daily. Branch OXcarbazepi Yes Take by Un [place] ne 150 mg 4-01 mouth 2 ity of tablet 15:44: (two) [place] 04 times Medical daily. Branch levETIRAcet Yes 500mg Take 500 U nivers am 500 mg 4-01 mg by ity of tablet 15:44: mouth 2 [place] [address] (two) Medical times Branch daily. aspirin 81 Yes 81mg Take 81 mg U nivers mg chewable 4-01 by mouth ity of tablet 15:44: daily. [address] multivit-mi Yes Take by [facility] nerals/foli 4-01 mouth. ity of c acid 15:44: [place] ([place] [address] Medical VITAMINTS Branch ORAL) metformin Yes Take by [facility] ers HCl 4-01 mouth. ity of (METFORMIN 15:44: [place] ORAL) Medical Branch gabapentin Yes Take by [facility] vers ER 300 mg 4-01 mouth ity of tablet, 15:44: daily. [facility] Medical release 24 Branch hr iron Yes Take by [facility] bis-gly/FA/ 4-01 mouth. ity of C/B12/Ca/[place] 15:44: [place] cc (IRON 04 Medical 25/09 ORAL) Branch telmisartan Yes 1{tbl} Take 1 [facility] [place] -hydrochlor 4-01 tablet by ity of othiazide 15:44: mouth [place] 80-25 mg 04 daily. Medical per tablet Branch glimepiride Yes 4mg Take 4 mg U nivers 4 mg tablet 4-01 by mouth 2 it y of 15:44: (two) [place] 04 times Medical daily. Branch OXcarbazepi Yes Take by [facility] [place] ne 150 mg 4-01 mouth 2 ity of tablet 15:44: (two) [place] 04 times Medical daily. Branch levETIRAcet Yes 500mg Take 500 U nivers am 500 mg 4-01 mg by ity of tablet 15:44: mouth 2 [place] 04 (two) Medical times Branch daily. aspirin 81 Yes 81mg Take 81 mg U nivers mg chewable 4-01 by mouth ity of tablet 15:44: daily. [place] [address] Medical Branch multivit-mi Yes Take by [facility] nerals/foli 4-01 mouth. ity of c acid 15:44: [place] [place] ([facility] 04 Medical VITAMINTS Branch ORAL) metformin Yes Take by [facility] ers HCl 4-01 mouth. ity of (METFORMIN 15:44: [place] ORAL) Medical Branch gabapentin Yes Take by Uni vers ER 300 mg 4-01 mouth ity of tablet, 15:44: daily. [place] extended 04 Medical release 24 Branch hr iron Yes Take by [facility] bis-gly/FA/ 4-01 mouth. ity of C/B12/Ca/[place] 15:44: [facility] (IRON 04 Medical 21/7 ORAL) Branch telmisartan Yes 1{tbl} Take 1 Un row[place] -hydrochlor 4-01 tablet by ity of othiazide 15:44: mouth [place] 80-25 mg 04 daily. Medical per tablet Branch glimepiride Yes 4mg Take 4 mg U nivers 4 mg tablet 4-01 by mouth 2 it y of 15:44: (two) [place] 04 times Medical daily. Branch OXcarbazepi Yes Take by Un [place] ne 150 mg 4-01 mouth 2 ity of tablet 15:44: (two) [place] 04 times Medical daily. Branch levETIRAcet 2019 Yes 500mg Take 500 U nivers am 500 mg 4-01 mg by ity of tablet 15:44: mouth 2 [place] [address] (two) Medical times [place] daily. aspirin 81 2019-0 Yes 81mg Take 81 mg U nivers mg chewable 4-01 by mouth ity of tablet 15:44: daily. [place] [address] Medical Branch multivit-mi Yes Take by Un [place] nerals/foli 4-01 mouth. ity of c acid 15:44: [place] ([place] [address] Medical VITAMINTS Branch ORAL) metformin Yes Take by [facility] ers HCl 4-01 mouth. ity of (METFORMIN 15:44: [place] ORAL) Medical Branch gabapentin Yes Take by Uni vers ER 300 mg 4-01 mouth ity of tablet, 15:44: daily. [place] [address] Medical release 24 Branch hr iron Yes Take by [facility] bis-gly/FA/ 4-01 mouth. ity of C/B12/Ca/[place] 15:44: [place] cc (IRON Medical 25/09 ORAL) Branch telmisartan Yes 1{tbl} Take 1 Un [place] -hydrochlor 4-01 tablet by ity of othiazide 15:44: mouth [place] 80-25 mg 04 daily. Medical per tablet Branch glimepiride Yes 4mg Take 4 mg U nivers 4 mg tablet 4-01 by mouth 2 it y of 15:44: (two) [place] 04 times Medical daily. Branch OXcarbazepi Yes Take by Un [place] ne 150 mg 4-01 mouth 2 ity of tablet 15:44: (two) [place] [address] times Medical daily. Branch levETIRAcet Yes 500mg Take 500 U nivers am 500 mg 4-01 mg by ity of tablet 15:44: mouth 2 [place] [address] (two) Medical times [place] daily. aspirin 81 2019-0 Yes 81mg Take 81 mg U nivers mg chewable 4-01 by mouth ity of tablet 15:44: daily. [place] [address] Medical [place] multivit-mi Yes Take by Un [place] nerals/foli 4-01 mouth. ity of c acid 15:44: [place] ([facility] Medical VITAMINTS Branch ORAL) metformin 0 Yes Take by Univ ers HCl 4-01 mouth. ity of (METFORMIN 15:44: [place] ORAL) 04 Medical Branch gabapentin Yes Take by Uni vers ER 300 mg 4-01 mouth ity of tablet, 15:44: daily. [place] extended 04 Medical release 24 Branch hr iron Yes Take by [facility] bis-gly/FA/ 4-01 mouth. ity of C/B12/Ca/[place] 15:44: [place] cc (IRON 04 Medical 21/7 ORAL) Branch telmisartan Yes 1{tbl} Take 1 Un [place] -hydrochlor 4-01 tablet by ity of othiazide 15:44: mouth [place] 80-25 mg 04 daily. Medical per tablet Branch glimepiride Yes 4mg Take 4 mg U nivers 4 mg tablet 4-01 by mouth 2 it y of 15:44: (two) [place] 04 times Medical daily. Branch OXcarbazepi Yes Take by Un [place] ne 150 mg 4-01 mouth 2 ity of tablet 15:44: (two) [place] [address] times Medical daily. Branch levETIRAcet Yes 500mg Take 500 U nivers am 500 mg 4-01 mg by ity of tablet 15:44: mouth 2 [place] 04 (two) Medical times Branch daily. aspirin 81 Yes 81mg Take 81 mg U nivers mg chewable 4-01 by mouth ity of tablet 15:44: daily. [address] multivit-mi Yes Take by Un [place] nerals/foli 4-01 mouth. ity of c acid 15:44: [place] ([facility] Medical VITAMINTS Branch ORAL) metformin Yes Take by [facility] ers HCl 4-01 mouth. ity of (METFORMIN 15:44: [place] ORAL) [address] [place] [address] Branch gabapentin 0 Yes Take by Uni vers ER 300 mg 4-01 mouth ity of tablet, 15:44: daily. [place] [address] Medical release 24 Branch hr iron Yes Take by [facility] bis-gly/FA/ 4-01 mouth. ity of C/B12/Ca/[place] 15:44: [place] cc (IRON 04 Medical 21/7 ORAL) Branch telmisartan 0 Yes 1{tbl} Take 1 Un [place] -hydrochlor 4-01 tablet by ity of othiazide 15:44: mouth [place] 80-25 mg 04 daily. Medical per tablet Branch glimepiride Yes 4mg Take 4 mg U nivers 4 mg tablet 4-01 by mouth 2 it y of 15:44: (two) [place] 04 times Medical daily. Branch OXcarbazepi Yes Take by Un [place] ne 150 mg 4-01 mouth 2 ity of tablet 15:44: (two) [place] 04 times Medical daily. Branch levETIRAcet Yes 500mg Take 500 U nivers am 500 mg 4-01 mg by ity of tablet 15:44: mouth 2 [place] 04 (two) Medical times Branch daily. aspirin 81 Yes 81mg Take 81 mg U nivers mg chewable 4-01 by mouth ity of tablet 15:44: daily. [address] Branch multivit-mi Yes Take by Un [place] nerals/foli 4-01 mouth. ity of c acid 15:44: [place] ([facility] 04 Medical VITAMINTS Branch ORAL) metformin Yes Take by [facility] ers HCl 4-01 mouth. ity of (METFORMIN 15:44: [place] ORAL) Medical Branch gabapentin Yes Take by Uni vers ER 300 mg 4-01 mouth ity of tablet, 15:44: daily. [place] extended 04 Medical release 24 Branch hr iron Yes Take by [facility] bis-gly/FA/ 4-01 mouth. ity of C/B12/Ca/[place] 15:44: [place] cc (IRON 04 Medical 25/09 ORAL) Branch telmisartan Yes 1{tbl} Take 1 Un [place] -hydrochlor 4-01 tablet by ity of othiazide 15:44: mouth [place] 80-25 mg 04 daily. Medical per tablet Branch glimepiride Yes 4mg Take 4 mg U nivers 4 mg tablet 4-01 by mouth 2 it y of 15:44: (two) [place] 04 times Medical daily. Branch OXcarbazepi Yes Take by Un [place] ne 150 mg 4-01 mouth 2 ity of tablet 15:44: (two) [place] 04 times Medical daily. Branch levETIRAcet Yes 500mg Take 500 U nivers am 500 mg 4-01 mg by ity of tablet 15:44: mouth 2 [place] 04 (two) Medical times Branch daily. aspirin 81 2019-0 Yes 81mg Take 81 mg U nivers mg chewable 4-01 by mouth ity of tablet 15:44: daily. [place] [address] Medical Branch multivit-mi 2018-0 Yes Take by Un [place] nerals/foli 4-01 mouth. ity of c acid 15:44: [place] ([place] [address] Medical VITAMINTS Branch ORAL) metformin Yes Take by Univ ers HCl 4-01 mouth. ity of (METFORMIN 15:44: [place] ORAL) Medical Branch gabapentin 2018-0 Yes Take by Uni vers ER 300 mg 4-01 mouth ity of tablet, 15:44: daily. [place] extended Medical release 24 Branch hr iron Yes Take by [facility] bis-gly/FA/ 4-01 mouth. ity of C/B12/Ca/[place] 15:44: [place] cc (IRON Medical 25/09 ORAL) Branch telmisartan Yes 1{tbl} Take 1 Un [place] -hydrochlor 4-01 tablet by ity of othiazide 15:44: mouth [place] 80-25 mg 04 daily. Medical per tablet Branch glimepiride Yes 4mg Take 4 mg U nivers 4 mg tablet 4-01 by mouth 2 it y of 15:44: (two) [place] 04 times Medical daily. Branch OXcarbazepi Yes Take by Un [place] ne 150 mg 4-01 mouth 2 ity of tablet 15:44: (two) [place] 04 times Medical daily. Branch levETIRAcet Yes 500mg Take 500 U nivers am 500 mg 4-01 mg by ity of tablet 15:44: mouth 2 [place] [address] (two) Medical times Branch daily. aspirin 81 2018-0 Yes 81mg Take 81 mg U nivers mg chewable 4-01 by mouth ity of tablet 15:44: daily. [address] Branch multivit-mi 2018-0 Yes Take by Un [place] nerals/foli 4-01 mouth. ity of c acid 15:44: [place] ([place] [address] Medical VITAMINTS Branch ORAL) metformin 2018-0 Yes Take by Univ ers HCl 4-01 mouth. ity of (METFORMIN 15:44: [place] ORAL) Medical Branch gabapentin 2018-0 Yes Take by Uni vers ER 300 mg 4-01 mouth ity of tablet, 15:44: daily. [place] extended 04 Medical release 24 Branch hr iron Yes Take by [facility] bis-gly/FA/ 4-01 mouth. ity of C/B12/Ca/[place] 15:44: [place] cc (IRON 04 Medical 25/09 ORAL) Branch telmisartan Yes 1{tbl} Take 1 Un [place] -hydrochlor 4-01 tablet by ity of othiazide 15:44: mouth [place] 80-25 mg 04 daily. Medical per tablet Branch glimepiride Yes 4mg Take 4 mg U nivers 4 mg tablet 4-01 by mouth 2 it y of 15:44: (two) [place] 04 times Medical daily. Branch OXcarbazepi Yes Take by Un [place] ne 150 mg 4-01 mouth 2 ity of tablet 15:44: (two) [place] 04 times Medical daily. Branch levETIRAcet Yes 500mg Take 500 U nivers am 500 mg 4-01 mg by ity of tablet 15:44: mouth 2 [place] (two) Medical times Branch daily. aspirin 81 Yes 81mg Take 81 mg U nivers mg chewable 4-01 by mouth ity of tablet 15:44: daily. [address] Branch multivit-mi Yes Take by Un [place] nerals/foli 4-01 mouth. ity of c acid 15:44: [place] ([facility] Medical VITAMINTS Branch ORAL) metformin Yes Take by [facility] ers HCl 4-01 mouth. ity of (METFORMIN 15:44: [place] ORAL) [address] [place] [address] Branch gabapentin Yes Take by Uni vers ER 300 mg 4-01 mouth ity of tablet, 15:44: daily. [facility] 04 Medical release 24 Branch hr iron Yes Take by [facility] bis-gly/FA/ 4-01 mouth. ity of C/B12/Ca/[place] 15:44: [facility] (IRON 04 Medical 25/09 ORAL) Branch telmisartan Yes 1{tbl} Take 1 Un [place] -hydrochlor 4-01 tablet by ity of othiazide 15:44: mouth [place] 80-25 mg 04 daily. Medical per tablet Branch glimepiride Yes 4mg Take 4 mg U nivers 4 mg tablet 4-01 by mouth 2 it y of 15:44: (two) [place] 04 times Medical daily. Branch OXcarbazepi Yes Take by Un [place] ne 150 mg 4-01 mouth 2 ity of tablet 15:44: (two) [place] 04 times Medical daily. Branch levETIRAcet Yes 500mg Take 500 U nivers am 500 mg 4-01 mg by ity of tablet 15:44: mouth 2 [place] 04 (two) Medical times [place] daily. aspirin 81 Yes 81mg Take 81 mg U nivers mg chewable 4-01 by mouth ity of tablet 15:44: daily. [address] Branch multivit-mi Yes Take by Un [place] nerals/foli 4-01 mouth. ity of c acid 15:44: [place] ([facility] 04 Medical VITAMINTS Branch ORAL) metformin Yes Take by Univ ers HCl 4-01 mouth. ity of (METFORMIN 15:44: [place] ORAL) Medical Branch gabapentin Yes Take by Uni vers ER 300 mg 4-01 mouth ity of tablet, 15:44: daily. [facility] 04 Medical release 24 Branch hr iron Yes Take by [facility] bis-gly/FA/ 4-01 mouth. ity of C/B12/Ca/[place] 15:44: [place] cc (IRON 04 Medical 25/09 ORAL) Branch telmisartan Yes 1{tbl} Take 1 Un [place] -hydrochlor 4-01 tablet by ity of othiazide 15:44: mouth [place] 80-25 mg 04 daily. Medical per tablet Branch glimepiride Yes 4mg Take 4 mg U nivers 4 mg tablet 4-01 by mouth 2 it y of 15:44: (two) [place] 04 times Medical daily. Branch OXcarbazepi Yes Take by Un [place] ne 150 mg 4-01 mouth 2 ity of tablet 15:44: (two) [place] [address] times Medical daily. Branch levETIRAcet Yes 500mg Take 500 U nivers am 500 mg 4-01 mg by ity of tablet 15:44: mouth 2 [place] [address] (two) Medical times [place] daily. aspirin 81 Yes 81mg Take 81 mg U nivers mg chewable 4-01 by mouth ity of tablet 15:44: daily. [place] 04 Medical Branch multivit-mi 2018- Yes Take by Un [place] nerals/foli 4-01 mouth. ity of c acid 15:44: [place] ([place] [address] Medical VITAMINTS Branch ORAL) metformin Yes Take by [facility] ers HCl 4-01 mouth. ity of (METFORMIN 15:44: [place] ORAL) Medical Branch gabapentin Yes Take by Uni vers ER 300 mg 4-01 mouth ity of tablet, 15:44: daily. [facility] Medical release 24 Branch hr iron Yes Take by [facility] bis-gly/FA/ 4-01 mouth. ity of C/B12/Ca/[place] 15:44: [place] cc (IRON 04 Medical 21/ ORAL) Branch telmisartan Yes 1{tbl} Take 1 Un [place] -hydrochlor 4-01 tablet by ity of othiazide 15:44: mouth [place] 80-25 mg 04 daily. Medical per tablet Branch glimepiride Yes 4mg Take 4 mg U nivers 4 mg tablet 06-06 by mouth 2 it y of 15:44: (two) [place] 04 times Medical daily. Branch OXcarbazepi Yes Take by Un [place] ne 150 mg 4-01 mouth 2 ity of tablet 15:44: (two) [place] 04 times Medical daily. Branch levETIRAcet Yes 500mg Take 500 U nivers am 500 mg 4- mg by ity of tablet 15:44: mouth 2 [place] [address] (two) Medical times Branch daily. aspirin 81 Yes 81mg Take 81 mg U nivers mg chewable - by mouth ity of tablet 15:44: daily. [address] Branch multivit-mi Yes Take by Un [place] nerals/foli 4-01 mouth. ity of c acid 15:44: [place] ([place] [address] Medical VITAMINTS Branch ORAL) metformin 0 Yes Take by [facility] ers HCl 4-01 mouth. ity of (METFORMIN 15:44: [place] ORAL) Medical Branch gabapentin 2018- Yes Take by Uni vers ER 300 mg 4-01 mouth ity of tablet, 15:44: daily. [place] extended Medical release 24 Branch hr iron Yes Take by [facility] bis-gly/FA/ 4-01 mouth. ity of C/B12/Ca/[place] 15:44: [place] cc (IRON 04 Medical 25/09 ORAL) Branch telmisartan Yes 1{tbl} Take 1 Un [place] -hydrochlor 4-01 tablet by ity of othiazide 15:44: mouth [place] 80-25 mg 04 daily. Medical per tablet Branch glimepiride Yes 4mg Take 4 mg U nivers 4 mg tablet 4-01 by mouth 2 it y of 15:44: (two) [place] 04 times Medical daily. Branch OXcarbazepi Yes Take by Un [place] ne 150 mg 4-01 mouth 2 ity of tablet 15:44: (two) [place] 04 times Medical daily. Branch levETIRAcet Yes 500mg Take 500 U nivers am 500 mg 4-01 mg by ity of tablet 15:44: mouth 2 [place] 04 (two) Medical times Branch daily. aspirin 81 Yes 81mg Take 81 mg U nivers mg chewable 4-01 by mouth ity of tablet 15:44: daily. [address] Branch multivit-mi Yes Take by Un [place] nerals/foli 4-01 mouth. ity of c acid 15:44: [place] ([facility] 04 Medical VITAMINTS Branch ORAL) metformin Yes Take by Univ ers HCl 4-01 mouth. ity of (METFORMIN 15:44: [place] ORAL) Medical Branch gabapentin Yes Take by Uni vers ER 300 mg 4-01 mouth ity of tablet, 15:44: daily. [place] extended 04 Medical release 24 Branch hr iron Yes Take by [facility] bis-gly/FA/ 4-01 mouth. ity of C/B12/Ca/[place] 15:44: [facility] (IRON 04 Medical 25/09 ORAL) Branch telmisartan Yes 1{tbl} Take 1 Un [place] -hydrochlor 4-01 tablet by ity of othiazide 15:44: mouth [place] 80-25 mg 04 daily. Medical per tablet Branch glimepiride Yes 4mg Take 4 mg U nivers 4 mg tablet 4-01 by mouth 2 it y of 15:44: (two) [place] 04 times Medical daily. Branch OXcarbazepi Yes Take by Un [place] ne 150 mg 4-01 mouth 2 ity of tablet 15:44: (two) [place] 04 times Medical daily. Branch levETIRAcet 2019 Yes 500mg Take 500 U nivers am 500 mg 4-01 mg by ity of tablet 15:44: mouth 2 [place] [address] (two) Medical times [place] daily. aspirin 81 2019- Yes 81mg Take 81 mg U nivers mg chewable 4-01 by mouth ity of tablet 15:44: daily. [address] multivit-mi Yes Take by Un [place] nerals/foli 4-01 mouth. ity of c acid 15:44: [place] ([place] [address] Medical VITAMINTS Branch ORAL) metformin Yes Take by Univ ers HCl 4-01 mouth. ity of (METFORMIN 15:44: [place] ORAL) Medical Branch gabapentin Yes Take by Uni vers ER 300 mg 4-01 mouth ity of tablet, 15:44: daily. [place] [address] Medical release 24 Branch hr iron Yes Take by [facility] bis-gly/FA/ 4-01 mouth. ity of C/B12/Ca/[place] 15:44: [place] cc (IRON Medical / ORAL) Branch telmisartan Yes 1{tbl} Take 1 Un [place] -hydrochlor 4-01 tablet by ity of othiazide 15:44: mouth [place] 80-25 mg 04 daily. Medical per tablet Branch glimepiride Yes 4mg Take 4 mg U nivers 4 mg tablet 4-01 by mouth 2 it y of 15:44: (two) [place] 04 times Medical daily. Branch OXcarbazepi Yes Take by Un [place] ne 150 mg 4-01 mouth 2 ity of tablet 15:44: (two) [place] [address] times Medical daily. Branch levETIRAcet Yes 500mg Take 500 U nivers am 500 mg 4-01 mg by ity of tablet 15:44: mouth 2 [place] [address] (two) Medical times [place] daily. aspirin 81 Yes 81mg Take 81 mg U nivers mg chewable 4-01 by mouth ity of tablet 15:44: daily. [address] multivit-mi Yes Take by Un [place] nerals/foli 4-01 mouth. ity of c acid 15:44: [place] ([facility] Medical VITAMINTS Branch ORAL) metformin 0 Yes Take by Univ ers HCl 4-01 mouth. ity of (METFORMIN 15:44: [place] ORAL) 04 Medical Branch gabapentin Yes Take by Uni vers ER 300 mg 4-01 mouth ity of tablet, 15:44: daily. [place] extended 04 Medical release 24 Branch hr iron Yes Take by [facility] bis-gly/FA/ 4-01 mouth. ity of C/B12/Ca/[place] 15:44: [place] cc (IRON 04 Medical 21/7 ORAL) Branch telmisartan Yes 1{tbl} Take 1 Un [place] -hydrochlor 4-01 tablet by ity of othiazide 15:44: mouth [place] 80-25 mg 04 daily. Medical per tablet Branch glimepiride Yes 4mg Take 4 mg U nivers 4 mg tablet 4-01 by mouth 2 it y of 15:44: (two) [place] 04 times Medical daily. Branch OXcarbazepi Yes Take by Un [place] ne 150 mg 4-01 mouth 2 ity of tablet 15:44: (two) [place] 04 times Medical daily. Branch levETIRAcet Yes 500mg Take 500 U nivers am 500 mg 4-01 mg by ity of tablet 15:44: mouth 2 [place] 04 (two) Medical times Branch daily. aspirin 81 Yes 81mg Take 81 mg U nivers mg chewable 4-01 by mouth ity of tablet 15:44: daily. [address] Branch multivit-mi Yes Take by Un [place] nerals/foli 4-01 mouth. ity of c acid 15:44: [place] ([facility] 04 Medical VITAMINTS Branch ORAL) metformin 0 Yes Take by [facility] ers HCl 4-01 mouth. ity of (METFORMIN 15:44: [place] ORAL) Medical Branch gabapentin Yes Take by Uni vers ER 300 mg 4-01 mouth ity of tablet, 15:44: daily. [place] extended 04 Medical release 24 Branch hr iron Yes Take by [facility] bis-gly/FA/ 4-01 mouth. ity of C/B12/Ca/[place] 15:44: [place] cc (IRON 04 Medical 21/7 ORAL) Branch telmisartan Yes 1{tbl} Take 1 Un [place] -hydrochlor 4-01 tablet by ity of othiazide 15:44: mouth [place] 80-25 mg 04 daily. Medical per tablet Branch glimepiride Yes 4mg Take 4 mg U nivers 4 mg tablet 4-01 by mouth 2 it y of 15:44: (two) [place] 04 times Medical daily. Branch OXcarbazepi Yes Take by Un [place] ne 150 mg 4-01 mouth 2 ity of tablet 15:44: (two) [place] 04 times Medical daily. Branch levETIRAcet Yes 500mg Take 500 U nivers am 500 mg 4-01 mg by ity of tablet 15:44: mouth 2 [place] 04 (two) Medical times Branch daily. aspirin 81 Yes 81mg Take 81 mg U nivers mg chewable 4-01 by mouth ity of tablet 15:44: daily. [place] [address] Medical Branch multivit-mi Yes Take by Un [place] nerals/foli 4-01 mouth. ity of c acid 15:44: [place] ([facility] 04 Medical VITAMINTS Branch ORAL) metformin Yes Take by Univ ers HCl 4-01 mouth. ity of (METFORMIN 15:44: [place] ORAL) Medical Branch gabapentin Yes Take by Uni vers ER 300 mg 4-01 mouth ity of tablet, 15:44: daily. [place] extended 04 Medical release 24 Branch hr iron Yes Take by [facility] bis-gly/FA/ 4-01 mouth. ity of C/B12/Ca/[place] 15:44: [place] cc (IRON 04 Medical 25/09 ORAL) Branch telmisartan Yes 1{tbl} Take 1 Un [place] -hydrochlor 4- tablet by ity of othiazide 15:44: mouth [place] 80-25 mg 04 daily. Medical per tablet Branch glimepiride Yes 4mg Take 4 mg U nivers 4 mg tablet 4-01 by mouth 2 it y of 15:44: (two) [place] 04 times Medical daily. Branch OXcarbazepi Yes Take by Un [place] ne 150 mg 4-01 mouth 2 ity of tablet 15:44: (two) [place] 04 times Medical daily. Branch levETIRAcet Yes 500mg Take 500 U nivers am 500 mg 4-01 mg by ity of tablet 15:44: mouth 2 [place] 04 (two) Medical times Branch daily. multivit-mi 2018-0 Yes Take by Un [place] nerals/foli 4-01 mouth. ity of c acid 15:44: [place] ([place] [address] Medical VITAMINTS Branch ORAL) metformin 0 Yes Take by Univ ers HCl 4-01 mouth. ity of (METFORMIN 15:44: [place] ORAL) Medical Branch gabapentin Yes Take by Uni vers ER 300 mg 4-01 mouth ity of tablet, 15:44: daily. [place] extended Medical release 24 Branch hr iron Yes Take by [facility] bis-gly/FA/ 4-01 mouth. ity of C/B12/Ca/[place] 15:44: [place] cc (IRON 04 Medical 25/09 ORAL) Branch telmisartan Yes 1{tbl} Take 1 Un [place] -hydrochlor 4- tablet by ity of othiazide 15:44: mouth [place] 80-25 mg 04 daily. Medical per tablet Branch glimepiride Yes 4mg Take 4 mg U nivers 4 mg tablet - by mouth 2 it y of 15:44: (two) [place] 04 times Medical daily. Branch OXcarbazepi Yes Take by Un [place] ne 150 mg 4-01 mouth 2 ity of tablet 15:44: (two) [place] 04 times Medical daily. Branch levETIRAcet Yes 500mg Take 500 U nivers am 500 mg 4- mg by ity of tablet 15:44: mouth 2 [place] 04 (two) Medical times Branch daily. multivit-mi 2018- Yes Take by Un [place] nerals/foli 4-01 mouth. ity of c acid 15:44: [place] ([place] [address] Medical VITAMINTS Branch ORAL) metformin 0 Yes Take by Univ ers HCl 4-01 mouth. ity of (METFORMIN 15:44: [place] ORAL) Medical Branch gabapentin 0 Yes Take by Uni vers ER 300 mg 4-01 mouth ity of tablet, 15:44: daily. [place] extended Medical release 24 Branch hr iron 0 Yes Take by [facility] bis-gly/FA/ 4-01 mouth. ity of C/B12/Ca/[place] 15:44: [place] cc (IRON 04 Medical 21/7 ORAL) Branch telmisartan 2019-0 Yes 1{tbl} Take 1 Un [place] -hydrochlor 4-01 tablet by ity of othiazide 15:44: mouth [place] 80-25 mg 04 daily. Medical per tablet Branch glimepiride Yes 4mg Take 4 mg U nivers 4 mg tablet 4-01 by mouth 2 it y of 15:44: (two) [place] 04 times Medical daily. Branch OXcarbazepi Yes Take by Un [place] ne 150 mg 4-01 mouth 2 ity of tablet 15:44: (two) [place] 04 times Medical daily. Branch levETIRAcet Yes 500mg Take 500 U nivers am 500 mg 4-01 mg by ity of tablet 15:44: mouth 2 [place] 04 (two) Medical times Branch daily. multivit-mi Yes Take by Un [place] nerals/foli 4-01 mouth. ity of c acid 15:44: [place] ([facility] 04 Medical VITAMINTS Branch ORAL) metformin Yes Take by [facility] ers HCl 4-01 mouth. ity of (METFORMIN 15:44: [place] ORAL) 04 Medical Branch gabapentin Yes Take by Uni vers ER 300 mg 4-01 mouth ity of tablet, 15:44: daily. [place] extended 04 Medical release 24 Branch hr iron Yes Take by [facility] bis-gly/FA/ 4-01 mouth. ity of C/B12/Ca/[place] 15:44: [place] cc (IRON 04 Medical 25/09 ORAL) Branch telmisartan Yes 1{tbl} Take 1 Un [place] -hydrochlor 4-01 tablet by ity of othiazide 15:44: mouth [place] 80-25 mg 04 daily. Medical per tablet Branch glimepiride Yes 4mg Take 4 mg U nivers 4 mg tablet 4-01 by mouth 2 it y of 15:44: (two) [place] 04 times Medical daily. Branch OXcarbazepi 2018- Yes Take by Un [place] ne 150 mg 4-01 mouth 2 ity of tablet 15:44: (two) [place] 04 times Medical daily. Branch levETIRAcet Yes 500mg Take 500 U nivers am 500 mg 4-01 mg by ity of tablet 15:44: mouth 2 [place] 04 (two) Medical times Branch daily. aspirin 81 2019-0 Yes 81mg Take 81 mg U nivers mg chewable 4-01 by mouth ity of tablet 15:44: daily. [place] [address] Medical Branch multivit-mi Yes Take by Un [place] nerals/foli 4-01 mouth. ity of c acid 15:44: [place] ([place] [address] Medical VITAMINTS Branch ORAL) metformin Yes Take by Univ ers HCl 4-01 mouth. ity of (METFORMIN 15:44: [place] ORAL) Medical Branch gabapentin Yes Take by Uni vers ER 300 mg 4-01 mouth ity of tablet, 15:44: daily. [place] extended Medical release 24 Branch hr iron Yes Take by [facility] bis-gly/FA/ 4-01 mouth. ity of C/B12/Ca/[place] 15:44: [place] cc ([place] [address] Medical 25/09 ORAL) Branch telmisartan Yes 1{tbl} Take 1 Un [place] -hydrochlor 4-01 tablet by ity of othiazide 15:44: mouth [place] 80-25 mg 04 daily. Medical per tablet Branch glimepiride Yes 4mg Take 4 mg U nivers 4 mg tablet 4-01 by mouth 2 it y of 15:44: (two) [place] 04 times Medical daily. Branch OXcarbazepi Yes Take by Un [place] ne 150 mg 4-01 mouth 2 ity of tablet 15:44: (two) [place] 04 times Medical daily. Branch levETIRAcet Yes 500mg Take 500 U nivers am 500 mg 4-01 mg by ity of tablet 15:44: mouth 2 [place] [address] (two) Medical times Branch daily. aspirin 81 2018- Yes 81mg Take 81 mg U nivers mg chewable 4-01 by mouth ity of tablet 15:44: daily. [address] Branch multivit-mi 2018- Yes Take by Un [place] nerals/foli 4-01 mouth. ity of c acid 15:44: [place] ([place] [address] Medical VITAMINTS Branch ORAL) metformin 2018- Yes Take by [facility] ers HCl 4-01 mouth. ity of (METFORMIN 15:44: [place] ORAL) Medical Branch gabapentin Yes Take by [facility] vers ER 300 mg 4-01 mouth ity of tablet, 15:44: daily. [facility] 04 Medical release 24 Branch hr iron Yes Take by [facility] bis-gly/FA/ 4-01 mouth. ity of C/B12/Ca/[place] 15:44: [place] cc (IRON 04 Medical 25/09 ORAL) Branch telmisartan Yes 1{tbl} Take 1 Un [place] -hydrochlor 4-01 tablet by ity of othiazide 15:44: mouth [place] 80-25 mg 04 daily. Medical per tablet Branch glimepiride Yes 4mg Take 4 mg U nivers 4 mg tablet 4-01 by mouth 2 it y of 15:44: (two) [place] 04 times Medical daily. Branch OXcarbazepi Yes Take by Un rowena ne 150 mg 4-01 mouth 2 ity of tablet 15:44: (two) [place] 04 times Medical daily. Branch levETIRAcet Yes 500mg Take 500 U nivers am 500 mg 4-01 mg by ity of tablet 15:44: mouth 2 [place] [address] (two) Medical times Branch daily. aspirin 81 Yes 81mg Take 81 mg U nivers mg chewable 4-01 by mouth ity of tablet 15:44: daily. [place] [address] Medical Branch multivit-mi Yes Take by Un rowena nerals/foli 4-01 mouth. ity of c acid 15:44: [place] (CENTRUM 04 Medical VITAMINTS Branch ORAL) metformin Yes Take by Univ ers HCl 4-01 mouth. ity of (METFORMIN 15:44: [place] ORAL) Medical Branch gabapentin Yes Take by Uni vers ER 300 mg 4-01 mouth ity of tablet, 15:44: daily. [facility] 04 Medical release 24 Branch hr iron Yes Take by [facility] bis-gly/FA/ 4-01 mouth. ity of C/B12/Ca/[place] 15:44: [facility] (IRON 04 Medical 25/09 ORAL) Branch telmisartan Yes 1{tbl} Take 1 Un rowena -hydrochlor 4-01 tablet by ity of othiazide 15:44: mouth [place] 80-25 mg 04 daily. Medical per tablet Branch glimepiride Yes 4mg Take 4 mg U nivers 4 mg tablet 4-01 by mouth 2 it y of 15:44: (two) [place] 04 times Medical daily. Branch OXcarbazepi Yes Take by Un rowena ne 150 mg 4-01 mouth 2 ity of tablet 15:44: (two) [place] 04 times Medical daily. Branch levETIRAcet Yes 500mg Take 500 U nivers am 500 mg 4- mg by ity of tablet 15:44: mouth 2 [place] [address] (two) Medical times Branch daily. aspirin 81 Yes 81mg Take 81 mg U nivers mg chewable - by mouth ity of tablet 15:44: daily. [place] [address] Medical Branch multivit-mi Yes Take by Un rowena nerals/foli 4-01 mouth. ity of c acid 15:44: [place] (CENTRUM 04 Medical VITAMINTS Branch ORAL) metformin Yes Take by Univ ers HCl 4-01 mouth. ity of (METFORMIN 15:44: [place] ORAL) [address] [place] [address] Branch gabapentin Yes Take by Uni vers ER 300 mg 4-01 mouth ity of tablet, 15:44: daily. [place] [id number] Medical release 24 Branch hr Immunizations Ordered Filled Immunization Date Status Comments [facility] e Immunization Name Name SARS-COV-2 COVID-19 2020-05-11 Completed Unive rsity of MODERNA VACCINE 00:00:[address] [facility] SARS-COV-2 COVID-19 2020-05-11 Completed Unive rsity of MODERNA VACCINE 00:00:[address] [facility] SARS-COV-2 COVID-19 2020-05-11 Completed Unive rsity of MODERNA VACCINE 00:00:[address] [facility] SARS-COV-2 COVID-19 2020-05-11 Completed Unive rsity of MODERNA VACCINE 00:00:[address] [facility] SARS-COV-2 COVID-19 2020-05-11 Completed Unive rsity of MODERNA VACCINE 00:00:[address] [facility] SARS-COV-2 COVID-19 2020-05-11 Completed Unive rsity of MODERNA VACCINE 00:00:[address] [facility] SARS-COV-2 COVID-19 2020-05-11 Completed Unive rsity of MODERNA VACCINE 00:00:[address] [facility] SARS-COV-2 COVID-19 2020-05-11 Completed Unive rsity of MODERNA VACCINE 00:00:00 [place] [facility] ical Branch SARS-COV-2 COVID-19 2020-05-11 Completed Unive rsity of MODERNA VACCINE 00:00:00 [place] [facility] ical Branch SARS-COV-2 COVID-19 2020-05-11 Completed Unive rsity of MODERNA VACCINE 00:00:00 [place] [facility] ical Branch SARS-COV-2 COVID-19 2020-05-11 Completed Unive rsity of MODERNA VACCINE 00:00:00 [place] [facility] ical Branch SARS-COV-2 COVID-19 2020-05-11 Completed Unive rsity of MODERNA VACCINE 00:00:00 [place] [facility] ical Branch SARS-COV-2 COVID-19 2020-05-11 Completed Unive rsity of MODERNA VACCINE 00:00:00 [place] Med ical Branch SARS-COV-2 COVID-19 2020-05-11 Completed Unive rsity of MODERNA VACCINE 00:00:00 [place] Med ical Branch SARS-COV-2 COVID-19 2020-05-11 Completed Unive rsity of MODERNA VACCINE 00:00:00 [place] Med ical Branch SARS-COV-2 COVID-19 2020-05-11 Completed Unive rsity of MODERNA VACCINE 00:00:00 [place] Med ical Branch SARS-COV-2 COVID-19 2020-05-11 Completed Unive rsity of MODERNA VACCINE 00:00:00 [place] Med ical Branch SARS-COV-2 COVID-19 2020-05-11 Completed Unive rsity of MODERNA VACCINE 00:00:00 [place] Med ical Branch SARS-COV-2 COVID-19 2020-05-11 Completed Unive rsity of MODERNA VACCINE 00:00:00 [place] Med ical Branch SARS-COV-2 COVID-19 2020-05-11 Completed Unive rsity of MODERNA VACCINE 00:00:00 [place] Med ical Branch SARS-COV-2 COVID-19 2020-05-11 Completed Unive rsity of MODERNA VACCINE 00:00:00 [place] Med ical Branch SARS-COV-2 COVID-19 2020-05-11 Completed Unive rsity of MODERNA VACCINE 00:00:00 [place] Med ical Branch SARS-COV-2 COVID-19 2020-05-11 Completed Unive rsity of MODERNA VACCINE 00:00:00 [place] Med ical Branch SARS-COV-2 COVID-19 2020-05-11 Completed Unive rsity of MODERNA VACCINE 00:00:00 [place] Med ical Branch SARS-COV-2 COVID-19 2020-05-11 Completed Unive rsity of MODERNA VACCINE 00:00:00 [place] Med ical Branch SARS-COV-2 COVID-19 2020-05-11 Completed Unive rsity of MODERNA VACCINE 00:00:00 [place] Med ical Branch SARS-COV-2 COVID-19 2020-05-11 Completed Unive rsity of MODERNA VACCINE 00:00:00 [place] Med ical Branch SARS-COV-2 COVID-19 2020-05-11 Completed Unive rsity of MODERNA VACCINE 00:00:00 [place] Med ical Branch SARS-COV-2 COVID-19 2020-05-11 Completed Unive rsity of MODERNA VACCINE 00:00:00 [place] Med ical Branch SARS-COV-2 COVID-19 2020-05-11 Completed Unive rsity of MODERNA VACCINE 00:00:00 [place] Med ical Branch SARS-COV-2 COVID-19 2020-05-11 Completed Unive rsity of MODERNA VACCINE 00:00:00 [place] Med ical Branch SARS-COV-2 COVID-19 2020-05-11 Completed Unive rsity of MODERNA VACCINE 00:00:00 [place] Med ical Branch SARS-COV-2 COVID-19 2020-05-11 Completed Unive rsity of MODERNA VACCINE 00:00:00 [place] Med ical Branch SARS-COV-2 COVID-19 2020-05-11 Completed Unive rsity of MODERNA VACCINE 00:00:00 [place] Med ical Branch SARS-COV-2 COVID-19 2020-05-11 Completed Unive rsity of MODERNA VACCINE 00:00:00 [place] Med ical Branch SARS-COV-2 COVID-19 2020-05-11 Completed Unive rsity of MODERNA VACCINE 00:00:00 [place] Med ical Branch SARS-COV-2 COVID-19 2020-05-11 Completed Unive rsity of MODERNA VACCINE 00:00:00 [place] Med ical Branch SARS-COV-2 COVID-19 2020-05-11 Completed Unive rsity of MODERNA VACCINE 00:00:00 [place] Med ical Branch SARS-COV-2 COVID-19 2020-05-11 Completed Unive rsity of MODERNA VACCINE 00:00:00 [place] Med ical Branch SARS-COV-2 COVID-19 2020-05-11 Completed Unive rsity of MODERNA VACCINE 00:00:00 [place] Med ical Branch SARS-COV-2 COVID-19 2020-04-13 Completed Unive rsity of MODERNA VACCINE 00:00:00 [place] [facility] ical Branch SARS-COV-2 COVID-19 2020-04-13 Completed Unive rsity of MODERNA VACCINE 00:00:00 [place] Med ical Branch SARS-COV-2 COVID-19 2020-04-13 Completed Unive rsity of MODERNA VACCINE 00:00:00 [place] Med ical Branch SARS-COV-2 COVID-19 2020-04-13 Completed Unive rsity of MODERNA VACCINE 00:00:00 [place] Med ical Branch SARS-COV-2 COVID-19 2020-04-13 Completed Unive rsity of MODERNA VACCINE 00:00:00 [place] Med ical Branch SARS-COV-2 COVID-19 2020-04-13 Completed Unive rsity of MODERNA VACCINE 00:00:00 [place] Med ical Branch SARS-COV-2 COVID-19 2020-04-13 Completed Unive rsity of MODERNA VACCINE 00:00:00 [place] [facility] ical Branch SARS-COV-2 COVID-19 2020-04-13 Completed Unive rsity of MODERNA VACCINE 00:00:00 [place] Med ical Branch SARS-COV-2 COVID-19 2020-04-13 Completed Unive rsity of MODERNA VACCINE 00:00:00 [place] Med ical Branch SARS-COV-2 COVID-19 2020-04-13 Completed Unive rsity of MODERNA VACCINE 00:00:00 [place] Med ical Branch SARS-COV-2 COVID-19 2020-04-13 Completed Unive rsity of MODERNA VACCINE 00:00:00 [place] [facility] ical Branch SARS-COV-2 COVID-19 2020-04-13 Completed Unive rsity of MODERNA VACCINE 00:00:00 [place] Med ical Branch SARS-COV-2 COVID-19 2020-04-13 Completed Unive rsity of MODERNA VACCINE 00:00:00 [place] Med ical Branch SARS-COV-2 COVID-19 2020-04-13 Completed Unive rsity of MODERNA VACCINE 00:00:00 [place] Med ical Branch SARS-COV-2 COVID-19 2020-04-13 Completed Unive rsity of MODERNA VACCINE 00:00:00 [place] Med ical Branch SARS-COV-2 COVID-19 2020-04-13 Completed Unive rsity of MODERNA VACCINE 00:00:00 [place] Med ical Branch SARS-COV-2 COVID-19 2020-04-13 Completed Unive rsity of MODERNA VACCINE 00:00:00 [place] Med ical Branch SARS-COV-2 COVID-19 2020-04-13 Completed Unive rsity of MODERNA VACCINE 00:00:00 [place] Med ical Branch SARS-COV-2 COVID-19 2020-04-13 Completed Unive rsity of MODERNA VACCINE 00:00:00 [place] Med ical Branch SARS-COV-2 COVID-19 2020-04-13 Completed Unive rsity of MODERNA VACCINE 00:00:00 [place] Med ical Branch SARS-COV-2 COVID-19 2020-04-13 Completed Unive rsity of MODERNA VACCINE 00:00:00 [place] Med ical Branch SARS-COV-2 COVID-19 2020-04-13 Completed Unive rsity of MODERNA VACCINE 00:00:00 [place] Med ical Branch SARS-COV-2 COVID-19 2020-04-13 Completed Unive rsity of MODERNA VACCINE 00:00:00 [place] Med ical Branch SARS-COV-2 COVID-19 2020-04-13 Completed Unive rsity of MODERNA VACCINE 00:00:00 [place] Med ical Branch SARS-COV-2 COVID-19 2020-04-13 Completed Unive rsity of MODERNA VACCINE 00:00:00 [place] Med ical Branch SARS-COV-2 COVID-19 2020-04-13 Completed Unive rsity of MODERNA VACCINE 00:00:00 [place] Med ical Branch SARS-COV-2 COVID-19 2020-04-13 Completed Unive rsity of MODERNA VACCINE 00:00:00 [place] [facility] ical Branch SARS-COV-2 COVID-19 2020-04-13 Completed Unive rsity of MODERNA VACCINE 00:00:00 [place] [facility] ical Branch SARS-COV-2 COVID-19 2020-04-13 Completed Unive rsity of MODERNA VACCINE 00:00:00 [place] [facility] ical Branch SARS-COV-2 COVID-19 2020-04-13 Completed Unive rsity of MODERNA VACCINE 00:00:00 [place] [facility] ical Branch SARS-COV-2 COVID-19 2020-04-13 Completed Unive rsity of MODERNA VACCINE 00:00:00 [facility] ical Branch SARS-COV-2 COVID-19 2020-04-13 Completed Unive rsity of MODERNA VACCINE 00:00:00 [facility] ical Branch SARS-COV-2 COVID-19 2020-04-13 Completed Unive rsity of MODERNA VACCINE 00:00:00 [facility] ical Branch SARS-COV-2 COVID-19 2020-04-13 Completed Unive rsity of MODERNA VACCINE 00:00:00 [facility] ical Branch SARS-COV-2 COVID-19 2020-04-13 Completed Unive rsity of MODERNA VACCINE 00:00:00 [facility] ical Branch SARS-COV-2 COVID-19 2020-04-13 Completed Unive rsity of MODERNA VACCINE 00:00:00 [facility] SARS-COV-2 COVID-19 2020-04-13 Completed Unive rsity of MODERNA VACCINE 00:00:00 [facility] ical Branch SARS-COV-2 COVID-19 2020-04-13 Completed Unive rsity of MODERNA VACCINE 00:00:00 [facility] ical Branch SARS-COV-2 COVID-19 2020-04-13 Completed Unive rsity of MODERNA VACCINE 00:00:00 [facility] ical Branch SARS-COV-2 COVID-19 2020-04-13 Completed Unive rsity of MODERNA VACCINE 00:00:00 [facility] Vital Signs Vital Name Observation Time Observation Value Comments Source Systolic blood 2020-10-30 19:49:00 116 mm[Hg] Univer sity of pressure [place] [facility] Diastolic blood 2020-10-30 19:49:00 71 mm[Hg] Unive rsity of pressure [place] [facility] Heart rate 2020-10-30 19:49:00 94 /min [facility] [place] [facility] Body temperature 2020-10-30 19:49:00 36.61 Radha Univ ers[facility] [place] [facility] Respiratory rate 2020-10-30 19:49:00 16 /min [facility] [place] [facility] Body height 2020-10-30 19:49:00 165.1 cm [facility] [place] [facility] Body weight 2020-10-30 19:49:00 96.344 kg [facility] [place] [facility] BMI 2020-10-30 19:49:00 35.35 kg/m2 [facility] [place] [facility] Oxygen saturation in 2020-10-30 19:49:00 100 /min University of Arterial blood by [facility] Pulse oximetry Branch Systolic blood 2020-10-10 17:35:00 126 mm[Hg] Univer sity of pressure [place] [facility] Diastolic blood 2020-10-10 17:35:00 59 mm[Hg] Unive rsity of pressure [place] [facility] Heart rate 2020-10-10 17:35:00 90 /min [facility] [place] [facility] Body temperature 2020-10-10 17:35:00 36.67 Radha Univ ersity [facility] [place] [facility] Respiratory rate 2020-10-10 17:35:00 18 /min Univ ersity of [place] [facility] Oxygen saturation in 2020-10-10 17:35:00 96 /min University of Arterial blood by [facility] Pulse oximetry Branch Body height 2020-10-07 21:33:00 165.1 cm [facility] [place] [facility] Body weight 2020-10-07 21:33:00 98.431 kg [facility] [place] [facility] BMI 2020-10-07 21:33:00 36.11 kg/m2 [facility] [place] [facility] Systolic blood 2020-10-07 20:30:00 135 mm[Hg] Univer sity of pressure [place] [facility] Diastolic blood 2020-10-07 20:30:00 86 mm[Hg] Unive rsity of pressure [place] [facility] Heart rate 2020-10-07 20:30:00 155 /min [facility] [place] [facility] Body temperature 2020-10-07 20:30:00 36.22 Radha Univ ersity of [place] [facility] Body height 2020-10-07 20:30:00 152.4 cm [facility] [place] [facility] Body weight 2020-10-07 20:30:00 98.521 kg [facility] [place] [facility] BMI 2020-10-07 20:30:00 42.42 kg/m2 [facility] [place] [facility] Oxygen saturation in 2020-10-07 20:30:00 98 /min University of Arterial blood by [facility] Pulse oximetry Branch Systolic blood 2020-10-02 16:14:00 103 mm[Hg] Univer sity of pressure [place] [facility] Diastolic blood 2020-10-02 16:14:00 61 mm[Hg] Unive rsity of pressure [place] [facility] Heart rate 2020-10-02 16:14:00 74 /min [facility] [place] [facility] Body weight 2020-10-02 16:14:00 100.245 kg [facility] [place] [facility] BMI 2020-10-02 16:14:00 36.78 kg/m2 [facility] [place] [facility] Oxygen saturation in 2020-10-02 16:14:00 93 /min University of Arterial blood by [facility] Pulse oximetry Branch Systolic blood 2020-09-27 19:00:00 120 mm[Hg] Univer sity of pressure [place] [facility] Diastolic blood 2020-09-27 19:00:00 54 mm[Hg] Unive rsity of pressure [place] [facility] Heart rate 2020-09-27 19:00:00 59 /min [facility] [place] [facility] Respiratory rate 2020-09-27 19:00:00 18 /min Univ ersity of [place] [facility] Oxygen saturation in 2020-09-27 19:00:00 98 /min University of Arterial blood by [facility] Pulse oximetry Branch Body temperature 2020-09-27 17:36:00 36.94 Radha [facility] [place] [facility] Body weight 2020-09-27 17:36:00 100.245 kg [facility] [place] [facility] BMI 2020-09-27 17:36:00 36.78 kg/m2 [facility] [place] [facility] Systolic blood 2020-08-06 20:14:00 122 mm[Hg] Univer sity of pressure [facility] Diastolic blood 2020-08-06 20:14:00 63 mm[Hg] Unive rsity of pressure [facility] Heart rate 2020-08-06 20:14:00 66 /min [facility] [place] [facility] [place] Body height 2020-08-06 20:14:00 165.1 cm [facility] [place] [facility] [place] Body weight 2020-08-06 20:14:00 100.562 kg [facility] [place] [facility] BMI 2020-08-06 20:14:00 36.89 kg/m2 Universi ty of [facility] Oxygen saturation in 2020-08-06 20:14:00 95 /min [facility] Arterial blood by [facility] Pulse oximetry Branch Body height 2020-04-05 17:00:00 165.1 cm [facility] [place] [facility] [place] Body weight 2020-04-05 17:00:00 88.451 kg [facility] [place] [facility] [place] BMI 2020-04-05 17:00:00 32.45 kg/m2 [facility] [place] [facility] Body height 2020-03-29 17:24:00 165.1 cm [facility] [place] [facility] Body weight 2020-03-29 17:24:00 88.451 kg [facility] [place] [facility] BMI 2020-03-29 17:24:00 32.45 kg/m2 [facility] [place] [facility] [place] Body temperature 2020-03-22 17:19:00 35.78 Radha [facility] ersity of [facility] Body weight 2020-03-22 17:19:00 88.451 kg [facility] [place] [facility] BMI 2020-03-22 17:19:00 32.45 kg/m2 [facility] [place] [facility] Body height 2020-03-11 18:54:00 165.1 cm [facility] [place] [facility] Body weight 2020-03-11 18:54:00 88.451 kg [facility] [place] [facility] BMI 2020-03-11 18:54:00 32.45 kg/m2 Universi ty of [facility] Branch Body temperature 2019-09-08 14:21:00 36.11 Radha [facility] ersity of [facility] Body height 2019-09-08 14:21:00 165.1 cm Universi ty of [facility] Branch Body weight 2019-09-08 14:21:00 88.905 kg [facility] [place] [facility] BMI 2019-09-08 14:21:00 32.62 kg/m2 Universi ty of [facility] Branch Body temperature 2019-09-01 14:47:00 36.61 Radha [facility] ersity of [facility] Body height 2019-09-01 14:47:00 165.1 cm Universi ty of [facility] Branch Body weight 2019-09-01 14:47:00 88.905 kg [facility] [place] [facility] BMI 2019-09-01 14:47:00 32.62 kg/m2 Universi ty of [facility] Branch Body temperature 2019-08-25 13:37:00 36.33 Radha [facility] ersity of [facility] Body height 2019-08-25 13:37:00 165.1 cm Universi ty of [facility] Body weight 2019-08-25 13:37:00 88.905 kg Universi ty of [facility] BMI 2019-08-25 13:37:00 32.62 kg/m2 Universi ty of [facility] Body temperature 2019-05-26 15:15:00 36.28 Radha [facility] ersity of [facility] Body weight 2019-05-26 15:15:00 88.905 kg Universi ty of [facility] Branch BMI 2019-05-26 15:15:00 32.62 kg/m2 Universi ty of [facility] Branch Body temperature 2019-05-19 15:26:00 36.33 Radha [facility] ersity of [facility] Body weight 2019-05-19 15:26:00 88.905 kg Universi ty of [facility] Branch BMI 2019-05-19 15:26:00 32.62 kg/m2 Universi ty of [facility] Branch Procedures Procedure Date / Time Performing Clinician Source Performed POCT GLUCOSE (AUTOMATED) 2020-10-10 21:49:00 Shaista Whipple [facility] POCT GLUCOSE (AUTOMATED) 2020-10-10 17:34:00 Sarabjit Shaista Loren [facility] POCT GLUCOSE (AUTOMATED) 2020-10-10 13:20:00 Shaista Whipple Loren [facility] FREE T4 2020-10-10 09:02:00 Jose Guadalupe [facility] POCT GLUCOSE (AUTOMATED) 2020-10-10 02:07:00 Shaista Whipple [facility] POCT GLUCOSE (AUTOMATED) 2020-10-09 23:05:00 Sarabjit [facility] POCT GLUCOSE (AUTOMATED) 2020-10-09 17:07:00 Shaista Whipple [facility] PROTHROMBIN TIME / INR 2020-10-09 15:53:00 Josh [facility] MAGNESIUM 2020-10-09 15:52:00 Jose Guadalupe [facility] THYROID STIMULATING 2020-10-09 15:52:00 Jose Guadalupe [facility] BASIC METABOLIC PANEL 2020-10-09 15:52:00 Jose Guadalupe [facility] (NA, K, CL, CO2, GLUCOSE, Medica l Branch BUN, CREATININE, CA) POCT GLUCOSE (AUTOMATED) 2020-10-09 13:23:00 Sarabjit [facility] POCT GLUCOSE (AUTOMATED) 2020-10-09 02:09:00 Sarabjit [facility] POCT GLUCOSE (AUTOMATED) 2020-10-08 22:12:[address] [facility] CT HEAD WO CONTRAST 2020-10-08 22:03:44 Sarabjit [facility] PHOSPHORUS 2020-10-08 19:02:00 Josh [facility] MAGNESIUM 2020-10-08 19:02:00 [facility] BASIC METABOLIC PANEL 2020-10-08 19:02:00 Josh [facility] (NA, K, CL, CO2, GLUCOSE, Medica l Branch BUN, CREATININE, CA) CBC WITH DIFF 2020-10-08 19:02:00 [facility] POCT GLUCOSE (AUTOMATED) 2020-10-08 18:48:00 Sarabjit [facility] POCT GLUCOSE (AUTOMATED) 2020-10-08 17:45:00 Sarabjit [facility] POCT GLUCOSE (AUTOMATED) 2020-10-08 14:13:00 Whipple, [facility] [place] [facility] [place] MAGNESIUM 2020-10-08 09:30:00 [facility] 2020-10-08 09:30:00 Guillermo [facility] (NA, K, CL, CO2, GLUCOSE, Medica l Branch BUN, CREATININE, CA) CBC WITH DIFF 2020-10-08 09:30:00 [facility] [place] [facility]W 2020-10-07 22:05:27 Dee Pierson [facility] TROPONIN I 2020-10-07 21:44:00 [facility] COMP. METABOLIC PANEL 2020-10-07 21:44:00 Dee Pierson [facility] ([id number]) Medical Branch CBC WITH DIFF 2020-10-07 21:44:00 [facility] N-TERMINAL PRO-BNP 2020-10-07 21:44:00 Dee Pierson [facility] COVID-19 (ID NOW RAPID 2020-10-07 21:44:00 Dee Pierson [facility] TESTING) Medical Branch LAB ONLY COVID 2020-10-07 21:44:00 Dee Pierson [facility] INTERPRETATION [facility] HB ECG ROUTINE & RHYTHM 2020-10-07 21:25:29 Dee Pierson [facility] STRIP [facility] CONSENT/REFUSAL FOR 2020-10-07 21:18:22 Doctor Unassigned, No [facility] DIAGNOSIS AND TREATMENT Name Medical Branch XR CHEST 1 VW 2020-09-27 18:18:24 Jess Christie [facility] MAGNESIUM 2020-09-27 17:55:00 Jess Christie [facility] TROPONIN I 2020-09-27 17:55:00 Jess Christie [facility] HEPATIC FUNCTION PANEL 2020-09-27 17:55:00 Jess Christie [facility] ([id number]) (ALB,T.PRO,BILI Medical Branch T,BU/BC,ALT,AST,ALK PHOS) BASIC METABOLIC PANEL 2020-09-27 17:55:00 Jess Christie [facility] (NA, K, CL, CO2, GLUCOSE, Medica l Branch BUN, CREATININE, CA) CBC WITH DIFF 2020-09-27 17:55:00 Jess Christie [facility] N-TERMINAL PRO-BNP 2020-09-27 17:55:00 Jess Christie [facility] COVID-19 (ID NOW RAPID 2020-09-27 17:55:00 [facility] Branch CONSENT/REFUSAL FOR 2020-09-27 17:13:53 Doctor [facility]assigned, No [facility] Name [facility] NM MYOCARDIUM PERFUSION 2020-08-13 18:20:00 Marcos [facility] STRESS AND REST [facility] NM MYOCARDIUM PERFUSION 2020-08-13 [facility]:20[facility] NM MYOCARDIUM PERFUSION 2020-08-13 18:20:[facility] NM MYOCARDIUM PERFUSION 2020-08-13 18:20:00 [facility] STRESS AND REST [facility] CONSENT/REFUSAL FOR 2020-08-06 20:01:52 [facility] DME/SUPPLY JUSTIFICATION 2020-04-05 06:01:00 Doctor Unassigned, No [facility] Name [facility] NO SHOW OR MISSED 2019-05-19 15:19:48 Doctor Unassigned, No [facility] APPOINTMENT POLICY Name [facility] h ACKNOWLEDGEMENT Encounters Start End Encounter Admission Attending Care Care Encounter Source Date/Time Date/Time Type Type Clinicians Facility Department ID 2021-01-06 Emergency [facility] [id number] Univers 12:34:13 ity [facility] 2021-01-06 Emergency [facility] [id number] Univers 10:21:27 ity [facility] 2020-12-17 2020-12-17 Outpatient R [facility] [id number] Univers 13:00:00 13:00:00 [id number] ity [facility] 2020-12-17 2020-12-17 Outpatient R RUMA CHERRY [facility] [id number] Univers 13:00:00 13:00:00 RUMA CHERRY ity of [facility] 2020-12-13 2020-12-13 Outpatient R [facility] [id number] -20 Univers 13:00:00 13:00:00 [id number] ity [facility] 2020-12-13 2020-12-13 Outpatient R [facility] [id number] Univers 13:00:00 13:00:00 ity of [facility] 2020-11-13 2020-11-13 Outpatient R MARCOS [facility] [id number] -20 Univers 13:20:00 13:20:00 SINSAL [id number] ity o f [facility] 2020-11-07 2020-11-07 Outpatient R [facility] [id number] -20 Univers 13:00:00 13:00:00 [id number] ity [facility] 2020-11-07 2020-11-07 Outpatient R SYLVIA CHERRYLAErin [facility] [id number] Univers 13:00:00 13:00:00 RUMA CHERRY ity [facility] 2020-11-05 2020-11-05 Outpatient R [facility] [id number] -20 Univers 15:00:00 15:00:00 [id number] ity [facility] 2020-11-05 2020-11-05 Outpatient R [facility] [id number] Univers 15:00:00 15:00:00 ity [facility] 2020-11-01 2020-11-01 Telephone Yong UNIVERSJUSTIN 1.2.840.114 [id number] Univers 00:00:00 00:00:00 Santhisri HEALTH 350.1.13.10 it[place] of [id number] [address] [address] 2020-10-30 2020-10-30 Student Assistance Counselor [facility] UNIVERSIT 1.2.840.114 [id number] Univers 15:41:21 15:56:21 Visit Yong, [facility] 350.1.13.10 it[place] of [place] [phone] [facility] [address] 2020-10-30 2020-10-30 Outpatient R YONG [facility] [id number] -20 Univers 15:00:00 15:00:00 [facility] [id number] ity [facility] 2020-10-30 2020-10-30 [facility] [id number] Univers 15:00:00 15:00:00 [facility] 2020-10-30 2020-10-30 Office Yong [facility] [id number] Univers 14:23:42 14:53:42 Visit [facility] 350.1.13.10 it[place] [id number] [address] 2020-10-24 2020-10-24 Outpatient [facility] [id number] -20 Univers 13:20:00 13:20:00 JENNY [id number] [facility] 2020-10-24 2020-10-24 [facility] 1.2.782.598 [id number] Univers 00:00:00 00:00:00 [facility] 350.1.13.10 [place] [id number] [address] Office Building 2020-10-15 2020-10-15 Outpatient R [facility] [id number] -20 Univers 12:00:00 12:00:00 [id number] ity [facility] 2020-10-15 2020-10-15 Outpatient R RUMA CHERRY [facility] [id number] Univers 12:00:00 12:00:00 [facility] 2020-10-11 2020-10-11 [facility] [id number] -20 Univers 10:00:00 10:00:00 BOBBY [id number] ity [facility] 2020-10-112020-10-11 Transition Tanika Genao 1.2.840.114 [id number] Univers 00:00:00 00:00:00 of Care Macey Coronado 350.1.13.10 it y of [place] [phone] [place] [address] [address] 2020-10-07 2020-10-10 Hospital Marc Piersonlopez [facility] 1.2.8 40.114 [id number] Univers 16:25:00 19:22:00 Encounter Shaista Whipple Loren [facility] 350.1.13 .10 [place] [phone] [address] ([facility]) 2020-10-09 2020-10-09 [facility] 1.2.840.114 [id number] Univers 14:16:06 14:16:06 Event [facility] 350.1.13.10 it [place] [id number] [address] ([facility]) 2020-10-07 2020-10-07 [facility] 1.2.840.114 [id number] Univers 15:10:09 15:40:09 Visit [facility] 350.1.13.10 [place] [phone] [facility] [address] Office Building 2020-10-07 2020-10-07 Outpatient Jaylon BEACH [facility] [id number] -20 Univers 15:30:00 15:30:00 SANTGRECIA [id number] [facility] 2020-10-07 2020-10-07 Outpatient Jaylon BEACH [facility] [id number] Univers 15:30:00 15:30:00 SANTHISRI [facility] 2020-10-04 2020-10-04 Outpatient Jaylon LOCK [facility] [id number] -20 Univers 10:00:00 10:00:00 BOBBY [id number] [facility] 2020-10-04 2020-10-04 Outpatient Jaylon LOCK [facility] [id number] Univers 10:00:00 10:00:00 BOBBY [facility] 2020-10-04 2020-10-04 Telephone [facility] 1.2.155.880 [id number] Univers 00:00:00 00:00:00 Sendil Lesley Bailey 350.1.13.10 ity of [place] Profess[place] [phone] Tn dic[address] 2020-10-02 2020-10-02 Office [facility] 1.2.840.114 [id number] Univers 10:57:03 12:13:58 Visit Sendmassimo Bailey 350.1.13.10 ity [facility] [place] [facility] [id number] [address] 2020-10-02 2020-10-02 Outpatient Jaylon MAGANA [facility] [id number] -20 Univers 11:00:00 11:00:00 SENDIL [id number] [facility] 2020-10-02 2020-10-02 Outpatient Jaylon [facility] [id number] Univers 11:00:00 11:00:00 SENDIL [facility] 2020-09-27 2020-09-27 Emergency [facility] 1.2.840.114 [id number] Univers 12:38:00 14:29:00 Jess Bailey 350.1.13.10 ity [facility] [place] [phone] [address] 2020-09-27 2020-09-27 Outpatient Jaylon LOCK [facility] [id number] -20 Univers 10:00:00 10:00:00 BOBBY [id number] [facility] 2020-09-27 2020-09-27 Outpatient [facility] [id number] Univers 10:00:00 10:00:00 BOBBY [facility] 2020-09-27 2020-09-27 Telephone LORENA Rodríguez 1.2.840.114 [id number] Univers 00:00:00 00:00:00 Brandon [facility] 350.1.13.10 ity of CL[place]ICS [place] [phone] [facility] [address] 2020-09-27 2020-09-27 Telephone [facility] 1.2.701.643 [id number] Univers 00:00:00 00:00:00 Brandon [place] 350.1.13.10 it[place] of [place] [phone] [place] [address]69 [facility] 2020-09-27 2020-09-27 Orders Doctor BROOKE 1.2.840.114 [id number] Univers 00:00:00 00:00:00 Only Unassigned, ANEL 350.1.13.10 ity of [place] [facility] 4.2.7.2.686 Ace as [phone] [facility] [address] 2020-09-21 2020-09-21 Telephone [facility] 1.2.413.454 [id number] Univers 00:00:00 00:00:00 Brandon Hamilton 350.1.13.10 it[place] of [place] Profess[place] [phone] [address] 2020-09-20 2020-09-20 Outpatient R ASHVIN [facility] [id number] -20 Univers 10:00:00 10:00:00 BOBBY [id number] ity [facility] 2020-09-20 2020-09-20 Outpatient R ASHVIN [facility] [id number] Univers 10:00:00 10:00:00 BOBBY fox [facility] 2020-09-10 2020-09-10 Outpatient R [facility] [id number] -20 Univers 14:00:00 14:00:00 [id number] itlissette [facility] 2020-09-10 2020-09-10 Outpatient R RUMA CHERRY [facility] [id number] Univers 14:00:00 14:00:00 RUMA CHERRY itlissette [facility] 2020-08-29 2020-08-29 Outpatient R MARCOS [facility] [id number] Univers 16:00:00 16:00:00 BRANDON ity o f [facility] 2020-08-29 2020-08-[address] [facility] [id number] -20 Univers 15:00:00 15:00:00 BRANDON [id number] ity o f [facility] 2020-08-23 2020-08-23 Telephone [facility] 1.2.491.957 [id number] Univers 00:00:00 00:00:00 Qiangjun Hamilton 350.1.13.10 [place] [phone] Tn dicdc nal [address] [place] [address] 2020-08-19 2020-08-19 [facility] 1.2.223.229 [id number] Univers 00:00:00 00:00:00 Qiangjun Hamilton 350.1.13.10 it[place] of [place] [phone] [facility] nal [address] [place] [address] 2020-08-13 2020-08-13 [facility] 1.2.840.114 [id number] Univers 07:59:39 23:59:00 Encounter Qiangjun Hamilton 350.1.13.10 it[place] of [place] [phone] [address] 2020-08-13 2020-08-13 [facility] 1.2.840.114 [id number] Univers 07:55:26 07:58:00 Encounter Qiangjun Hamilton 350.1.13.10 it[place] of [place] [phone] [address] 2020-08-13 2020-08-13 [facility] 1.2.840.114 [id number] Univers 07:55:12 07:58:00 Encounter Qiangjun Hamilton 350.1.13.10 it[place] of [place] [phone] [address] 2020-08-13 2020-08-13 Hospital [facility], [facility] 1.2.840.114 [id number] Univers 07:54:52 07:54:52 Encounter Brandon Leo 350.1.13.10 it[place] of [place] [id number] [facility] [address] 2020-08-13 2020-08-13 Outpatient R MARCOS, [facility] [id number] -20 Univers 07:15:00 07:15:[id number] [facility] 2020-08-13 2020-08-13 Outpatient MARCOS, [facility] [id number] Univers 00:00:00 00:00:00 BRANDON fox [facility] 2020-08-06 2020-08-06 Office [facility] 1.2.840.114 [id number] Univers 15:02:10 15:48:51 Visit Brandon Bailey 350.1.13.10 ity of [place] 4.2.7.2.686 [facility] [phone] Tn dical [facility] 059 [facility] 2020-08-06 2020-08-06 Outpatient R MARCOS, [facility] [id number] -20 Univers 15:20:00 15:20:[id number] ruddy o [facility] 2020-08-06 2020-08-06 Outpatient R MARCOS, [facility] [id number] Univers 15:20:00 15:20:00 BRANDON fox [facility] 2020-08-06 2020-08-06 Orders Doctor [facility] 1.2.840.114 [id number] Univers 00:00:00 00:00:00 Only Unassigned, ANEL 350.1.13.10 ity of [place] [facility] 4.2.7.2.686 [place] [phone] [facility] [address] 2020-04-05 2020-04-05 Office [facility] 1.2.840.114 [id number] Univers 10:57:48 11:48:59 Visit Bobby A SPECIALTY 350.1.13.10 it[place] C[place] AT [phone] Tn polly KEARNS 198 [facility] 2020-04-05 2020-04-05 Outpatient Jaylon LOCK [facility] [id number] -20 Univers 11:30:00 11:30:00 BOBBY [id number] itlissette [facility] 2020-04-05 2020-04-05 Outpatient Jaylon LOCK [facility] [id number] Univers 11:30:00 11:30:00 BOBBY lissette [facility] 2020-04-05 2020-04-05 Orders Doctor BROOKE 1.2.840.114 [id number] Univers 00:00:00 00:00:00 Only Unassigned, ANEL 350.1.13.10 ity of [place] [facility] 4.2.7.2.686 Ace as [phone] [address] 2020-03-29 2020-03-29 Office Ashvin [facility] 1.2.840.114 [id number] Univers 11:11:44 11:44:52 Visit Bobby A SPECIALTY 350.1.13.10 it[place] AT [phone] Tn polly KEARNS [address] [place] [address] 2020-03-29 2020-03-29 Outpatient Jaylon LOCK [facility] [id number] Univers 11:30:00 11:30:00 BOBBY fox [facility] 2020-03-29 2020-03-29 Outpatient Jaylon LOCK [facility] [id number] Univers 11:30:00 11:30:00 BOBBY ruddy [facility] 2020-03-29 2020-03-29 Outpatient Jaylon LOCK [facility] [id number] -[id number] Univers 11:30:00 11:30:00 BOBBY [id number] [facility] 2020-03-22 2020-03-22 Office Ashvin [facility] 1.2.840.114 [id number] Univers 11:14:53 11:41:50 Visit Bobby Dennis SPECIALTY 350.1.13.10 it[place] of [place] AT [phone] Tn polly KEARNS [address] [place] [address] 2020-03-22 2020-03-22 Outpatient Jaylon ASHVIN [facility] [id number] -20 Univers 11:30:00 11:30:00 BOBBY [id number] [facility] 2020-03-22 2020-03-22 Outpatient Jaylon LOCK [facility] [id number] Univers 11:30:00 11:30:00 BOBBY lissette [facility] 2020-03-22 2020-03-22 Outpatient Jaylon LOCK [facility] [id number] Univers 11:30:00 11:30:00 BOBBY lissette [facility] 2020-03-12 2020-03-12 Outpatient Jaylon LOCK [facility] [id number] -20 Univers 13:10:00 13:10:00 BOBBY [id number] [facility] 2020-03-11 2020-03-11 Office [facility] 1.2.840.114 [id number] Univers 12:51:42 14:41:20 Visit Bobby A SPECIALTY 350.1.13.10 ity of CARE 4.2.7.2.686 [facility] s COTO LAUREL AT [phone] Tn dical SOM [address] [place] [address] 2020-03-11 2020-03-11 Outpatient Jaylon LOCK [facility] [id number] -20 Univers 13:10:00 13:10:00 BOBBY [id number] [facility] 2020-03-11 2020-03-11 Outpatient Jaylon LOCK [facility] [id number] Univers 13:10:00 13:10:00 BOBBY [facility] 2019-09-08 2019-10-06 Office [facility] 1.2.840.114 [id number] Univers 09:13:50 14:32:03 Visit Bobby A SPECIALTY 350.1.13.10 ity of CARE 4.2.7.2.686 [facility] s COTO [place] AT [phone] Tn diclul KEARNS [address] [place] [address] 2019-09-08 2019-09-08 Outpatient ASHVIN [facility] [id number] -[id number] Univers 09:30:00 09:30:00 BOBBY [id number] [facility] 2019-09-08 2019-09-08 Outpatient Jaylon LOCK [facility] [id number] Univers 09:30:00 09:30:00 BOBBY [facility] 2019-09-01 2019-09-01 Office [facility] 1.2.840.114 [id number] Univers 09:41:36 10:13:27 Visit Bobby A SPECIALTY 350.1.13.10 ity of CARE 4.2.7.2.686 [facility] [phone] Tn diclul KEARNS 198 [facility] 2019-09-01 2019-09-01 Outpatient Jaylon LOCK [facility] [id number] -20 Univers 10:00:00 10:00:00 BOBBY [id number] [facility] 2019-09-01 2019-09-01 Outpatient Jaylon LOCK [facility] [id number] Univers 10:00:00 10:00:00 BOBBY [facility] 2019-08-25 2019-08-28 Office [facility] 1.2.840.114 [id number] Univers 08:12:58 11:49:02 Visit Bobby A SPECIALTY 350.1.13.10 ity of CARE 4.2.7.2.686 [facility] AT [phone] Tn faustinolul KEARNS [address] [place] [address] 2019-08-25 2019-08-25 Outpatient Jaylon LOCK [facility] [id number] -[id number] Univers 09:25:00 09:25:00 BOBBY [id number] [facility] 2019-08-25 2019-08-25 Outpatient Jaylon LOCK [facility] [id number] Univers 09:20:00 09:20:00 [facility] 2019-08-18 2019-08-18 Outpatient Jaylon LOCK [facility] [id number] -20 Univers 09:10:00 09:10:00 BOBBY [id number] [facility] 2019-08-18 2019-08-18 Outpatient Jaylon LOCK [facility] [id number] Univers 09:00:00 09:00:00 [facility] 2019-06-23 2019-06-23 Outpatient Jaylon LOCK [facility] [id number] -20 Univers 10:10:00 10:10:00 BOBBY [id number] [facility] 2019-06-09 2019-06-09 Outpatient Jaylon LOCK [facility] [id number] -[id number] Univers 10:10:00 10:10:00 BOBBY ity [facility] 2019-06-09 2019-06-09 [facility] [id number] Univers 10:10:00 10:10:00 [facility] 2019-06-02 2019-06-02 [facility] [id number] -20 Univers 10:10:00 10:10:00 BOBBY [id number] [facility] 2019-06-02 2019-06-02 [facility] [id number] Univers 10:10:00 10:10:00 BOBBY [facility] 2019-06-01 2019-06-01 Telephone [facility] 1.2.242.613 [id number] Univers 00:00:00 00:00:00 Bobby Dennis SPECIALTY 350.1.13.10 it[place] AT [phone] [address] 2019-05-26 2019-05-26 Office Jarvis Lock 1.2.840.114 [id number] Univers 10:10:25 12:07:44 Visit Bobby Dennis Pediatric 350.1.13.10 ity of [place] [id number] [address] 2019-05-26 2019-05-26 Outpatient [facility] [id number] -[id number] Univers 10:10:00 10:10:00 BOBBY ity [facility] 2019-05-26 2019-05-26 Outpatient [facility] [id number] Univers 10:10:00 10:10:00 BOBBY [facility] 2019-05-19 2019-05-19 Office Jarvis Lock 1.2.840.114 [id number] Univers 10:21:24 11:17:31 Visit Bobby Dennis Pediatric 350.1.13.10 ity of s and [place].2.[place] [id number] [address] 2019-05-19 2019-05-19 Outpatient R LOCK [facility] [id number] -20 Univers 10:20:00 10:20:00 BOBBY [id number] ity [facility] 2019-05-19 2019-05-19 Outpatient Jaylon LOCK [facility] [id number] Univers 10:20:00 10:20:00 BOBBY ity [facility] 2019-05-19 2019-05-19 Orders Doctor BROOKE 1.2.840.114 [id number] Univers 00:00:00 00:00:00 Only Unassigned, ANEL 350.1.13.10 ity of [place] [facility] 4.2.7.2.686 Ace as [id number] [place] [address] [address] 2019-04-29 2019-04-29 Telephone Jarvis Lock 1.2.388.701 [id number] Univers 00:00:00 00:00:00 Bobby Dennis Pediatric 350.1.13.10 ity of s and [place] [phone] [address] [facility] Results Test Description Test Time Test Comments Results Result Comments Source POCT GLUCOSE (AUTOMATED) 2020-10-10 22:00:12 Test Item Value Reference Range Interpretation Comme nts POCT GLU (test code = 9016063979) 264 mg/dL 70-110 H Lab Interpretation (test code = 48407-1) Abnormal [facility] GLUCOSE (AUTOMATED)2020-10-10 17:42:35 Test Item Value Reference Range Interpretation Comments POCT GLU (test code = 7041749976) 270 mg/dL 70-110 H Lab Interpretation (test code = Abnormal 21875-0) [facility] [id number] 17:07:10 Test Item Value Reference Range Interpretation Comments FREE T4 (test code = See_Comment [Autom ated message] 4474040056) The system [employer] generated this result transmitted ref erence range: 0.78 - 2 .20 ng/dL:. The ref erence range was not u sed to interpret this result as normal/abnor mal. Lab Interpretation (test Normal code = 84419-7) [facility] GLUCOSE (AUTOMATED)2020-10-10 13:31:10 Test Item Value Reference Range Interpretation Comments POCT GLU (test code = 1420532047) 202 mg/dL 70-110 H Lab Interpretation (test code = Abnormal 21438-8) [facility] GLUCOSE (AUTOMATED)2020-10-10 02:11:33 Test Item Value Reference Range Interpretation Comments POCT GLU (test code = 8268154629) 220 mg/dL 70-110 H Lab Interpretation (test code = Abnormal 12474-3) [facility] GLUCOSE (AUTOMATED)2020-10-09 23:11:57 Test Item Value Reference Range Interpretation Comments POCT GLU (test code = 3596040366) 295 mg/dL 70-110 H Lab Interpretation (test code = Abnormal 97506-9) [facility] Worth[facility]YROID STIMULATING [id number] 17:39:44 Test Item Value Reference Range Interpretation Comments TSH (test code = See_Comment H Biotin has been 7160977432) reported to cau se a negative bias, interpret resul ts relative to pat matt's use of biotin. [Automated mess age] The system [employer] generated this result transmitted ref erence range: 0.45 - 4 .70 mIU/L. The refe rence range was not u sed to interpret this result as normal/abnor mal. Lab Interpretation (test Abnormal code = 42780-6) [facility] GLUCOSE (AUTOMATED)2020-10-09 17:18:34 Test Item Value Reference Range Interpretation Comments POCT GLU (test code = 4722487433) 194 mg/dL 70-110 H Lab Interpretation (test code = Abnormal 42551-3) [facility] METABOLIC PANEL (NA, K, CL, CO2, GLUCOSE, BUN, CREATININE, CA)2020-10-09 16:14:35 Test Item Value Reference Range Interpretation Comments NA (test code = 134 mmol/L 135-145 L 7893966529) K (test code = 4.0 mmol/L 3.5-5.0 8318873165) CL (test code = 98 mmol/L 98-108 0098465893) CO2 TOTAL (test code = 30 mmol/L 23-31 1726943551) AGAP (test code = 2-16 1718703161) BUN (test code = 19 mg/dL 7-23 3307279182) GLUCOSE (test code = 212 mg/dL 70-110 H 6554067914) CREATININE (test code = 0.74 mg/dL 0.50-1.04 6753535978) CALCIUM (test code = 8.9 mg/dL 8.6-10.6 3887237280) eGFR (test code = mL/min/1.73m2 7909705633) LYRIC (test code = LYRIC) Association of Glomerular Filtration Rate (GFR) and Staging of Kidney Disease* + --+ --+ ------+| GFR (mL/min/1.73 m2) ?| With Kidney Damage ?| ?Without Kidney Damage+ --------+ --------+ +| ?>90 ?| ?Stage one ?| ? Normal ?+ ---+ ---+ -------+| ?60-89 ?| ?Stage two ?| ? Decreased GFR ? + --+ --+ ------+| ?30-59 ?| ?Stage three ?| ? Stage three ? + --+ --+ ------+| ?15-29 ?| ?Stage four ? | ? Stage four ?+ ---+ ---+ -------+| ?<15 (or dialysis) ? ?| ?Stage five ? | ? Stage five ?+ ---+ ---+ -------+ *Each stage assumes the associated GFR level has been in effect for at least three months. ?Stages 1 to 5, with or without kidney disease, indicate chronic kidney disease. Notes: Determination of stages one and two (with eGFR >59mL/min/1.73 m2) requires estimation of kidney damage for at least three months as defined by structural or functional abnormalities of the kidney, manifested by either:Pathological abnormalities or Markers of kidney damage (including abnormalities in the composition of the blood or urine or abnormalities in imaging tests). Lab Interpretation Abnormal (test code = 17241-5) [facility]21-[facility]-04 16:14:35 Test Item Value Reference Range Interpretation Comments MAGNESIUM (test code = 0815779457) 2.1 mg/dL 1.7-2.4 Lab Interpretation (test code = Normal 71952-0) [facility] WorthPROTHROMBIN TIME / [id number] 16:10:55 Test Item Value Reference Range Interpretation Comments PROTIME PATIENT (test See_Comment [Auto mated message] code = 5964-2) The system wh ich generated this result transmitted ref erence range: 10.1 - 1 2.6 Seconds. The re ference range was not u sed to interpret this result as normal/abnor mal. INR (test code = 6301-6) Nor mal INR <1.1; Warfarin Therap eutic range 2.0 to 3. 0 or 2.5 to 3.5, dep ending upon the indica tions. Lab Interpretation (test Normal code = 24527-1) [facility] GLUCOSE (AUTOMATED)2020-10-09 13:25:49 Test Item Value Reference Range Interpretation Comments POCT GLU (test code = 8308491768) 239 mg/dL 70-110 H Lab Interpretation (test code = Abnormal 06083-3) [facility] GLUCOSE (AUTOMATED)2020-10-09 02:10:32 Test Item Value Reference Range Interpretation Comments POCT GLU (test code = 4963733799) 279 mg/dL 70-110 H Lab Interpretation (test code = Abnormal 09729-9) [facility] HEAD WO [id number] 22:22:38No acute findings. HISTORY:Dizziness, non-specific TECHNIQUE: Noncontrast head CT was performed. COMPARISON:None. FINDINGS: The ventricles and sulci are appropriate for patient's age. There is no midline shift. The basal cisterns are preserved. No largevascular territory infarction, intracranial hemorrhage or mass effect isseen. The extracranial tissues demonstrate no acute findings. [facility], Radiant R esults Inft User - 10/08/2020 5:23 PM CDT HISTORY:Dizziness, non-specific TECHNIQUE: Noncontrast head CT was performed.COMPARISON:None.FINDINGS:The ventricles and sulci are appropriate for patient's age.There is no midline shift. The basal ci sterns are preserved. No largevascular territory infarction, intracranial hemorrhage or mass effect isseen.The extracranial tissues demonstrate no acute findings.IMPRESSIONNo acute findings.[facility] GLUCOSE (AUTOMATED)2020-10-08 22:13:02 Test Item Value Reference Range Interpretation Comments POCT GLU (test code = 1779121523) 236 mg/dL 70-110 H Lab Interpretation (test code = Abnormal 77077-4) [facility] (NA, K, CL, CO2, GLUCOSE, BUN, CREATININE, CA)2020-10-08 19:28:41 Test Item Value Reference Range Interpretation Comments NA (test code = 135 mmol/L 135-145 4133693904) K (test code = 3.5 mmol/L 3.5-5.0 3584770214) CL (test code = 97 mmol/L 98-108 L 1564257536) CO2 TOTAL (test code = 28 mmol/L 23-31 9168914568) AGAP (test code = 2-16 5890439156) BUN (test code = 17 mg/dL 7-23 4201575652) GLUCOSE (test code = 268 mg/dL 70-110 H 4322639324) CREATININE (test code = 0.74 mg/dL 0.50-1.04 1880013047) CALCIUM (test code = 8.9 mg/dL 8.6-10.6 6719171877) eGFR (test code = mL/min/1.73m2 6941072530) LYRIC (test code = LYRIC) Association of Glomerular Filtration Rate (GFR) and Staging of Kidney Disease* + --+ --+ ------+| GFR (mL/min/1.73 m2) ?| With Kidney Damage ?| ?Without Kidney Damage+ --------+ --------+ +| ?>90 ?| ?Stage one ?| ? Normal ?+ ---+ ---+ -------+| ?60-89 ?| ?Stage two ?| ? Decreased GFR ? + --+ --+ ------+| ?30-59 ?| ?Stage three ?| ? Stage three ? + --+ --+ ------+| ?15-29 ?| ?Stage four ? | ? Stage four ?+ ---+ ---+ -------+| ?<15 (or dialysis) ? ?| ?Stage five ? | ? Stage five ?+ ---+ ---+ -------+ *Each stage assumes the associated GFR level has been in effect for at least three months. ?Stages 1 to 5, with or without kidney disease, indicate chronic kidney disease. Notes: Determination of stages one and two (with eGFR >59mL/min/1.73 m2) requires estimation of kidney damage for at least three months as defined by structural or functional abnormalities of the kidney, manifested by either:Pathological abnormalities or Markers of kidney damage (including abnormalities in the composition of the blood or urine or abnormalities in imaging tests). Lab Interpretation Abnormal (test code = 80175-0) [facility] 19:28:41 Test Item Value Reference Range Interpretation Comments MAGNESIUM (test code = 9494550745) 1.3 mg/dL 1.7-2.4 L Lab Interpretation (test code = Abnormal 25345-7) [facility] 19:28:41 Test Item Value Reference Range Interpretation Comments PHOSPHORUS (test code = 1520331130) 3.2 mg/dL 2.5-5.0 Lab Interpretation (test code = Normal 44364-9) [facility] WITH [id number] 19:15:17 Test Item Value Reference Range Interpretation Comments WBC (test code = See_Comment [Automated 6690-2) message] The sy stem which generated this result transmitted reference range : 4.30 - 11.10 10*3/?L. The reference range was not used to interpret this result as normal/abnormal . RBC (test code = See_Comment L [Automated 409-8) message] The sy stem which generated this result transmitted reference range : 3.93 - 5.25 10*6/?L. The reference range was not used to interpret this result as normal/abnormal . HGB (test code = 11.2 g/dL 11.6-15.0 L 718-7) HCT (test code = 34.0 % 35.7-45.2 L 4544-3) MCV (test code = 88.3 fL 80.6-95.5 787-2) MCH (test code = 29.1 pg 25.9-32.8 785-6) MCHC (test code = 32.9 g/dL 31.6-35.1 786-4) RDW-SD (test code = 43.0 fL 39.0-49.9 87894-6) RDW-CV (test code = 13.4 % 12.0-15.5 788-0) PLT (test code = See_Comment [Automated 777-3) message] The sy stem which generated this result transmitted reference range : 166 - 358 10*3/ ?L. The reference r valentino was not used to interpret this result as normal/abnormal . MPV (test code = 9.7 fL 9.5-12.9 02002-9) NRBC/100 WBC (test See_Comment [Automat ed code = 1713712220) message] The system which generated this result transmitted reference range : 0.0 - 10.0 /100 WBCs. The refer ence range was not u sed to interpret th is result as normal/abnormal . NRBC x10^3 (test code <0.01 See_Comment [Auto mated = 7360417954) message] The s ystem which generated this result transmitted reference range : 10*3/?L. The reference range was not used to interpret this result as normal/abnormal . GRAN MAT (NEUT) % 67.2 % (test code = 770-8) IMM GRAN % (test code 1.50 % = 4358149037) LYMPH % (test code = 21.9 % 736-9) MONO % (test code = 6.1 % 5905-5) EOS % (test code = 2.5 % 713-8) BASO % (test code = 0.8 % 706-2) GRAN MAT x10^3(ANC) 7.32 10*3/uL 1.88-7.09 H (test code = 4372078593) IMM GRAN x10^3 (test 0.16 10*3/uL 0.00-0.06 H code = 7904377386) LYMPH x10^3 (test code 2.39 10*3/uL 1.32-3.29 = 731-0) MONO x10^3 (test code 0.67 10*3/uL 0.33-0.92 = 742-7) EOS x10^3 (test code = 0.27 10*3/uL 0.03-0.39 711-2) BASO x10^3 (test code 0.09 10*3/uL 0.01-0.07 H = 704-7) Lab Interpretation Abnormal (test code = 89183-2) [facility] GLUCOSE (AUTOMATED)2020-10-08 18:58:34 Test Item Value Reference Range Interpretation Comments POCT GLU (test code = 4026541005) 261 mg/dL 70-110 H Lab Interpretation (test code = Abnormal 39543-3) [facility]2020-10-08 17:46:09 Test Item Value Reference Range Interpretation Comments POCT GLU (test code = 6334219612) 196 mg/dL 70-110 H Lab Interpretation (test code = Abnormal 20899-6) [facility] ONLY COVID [id number] 17:02:24COVID DMT InterpretationInterpretation/Recommendations:Molecular NAAT Tests for Active Infection with the SARS-CoV-2 Virus:The patient has currently tested negative for the SARS-CoV-2 virus that causesCOVID-19 illness. This most likely indicates that the patient does not have an active infection withthe SARS-CoV-2 virus. However, infection is not completely ruled out as the false negative rate for molecular NAAT testing using a nasopharyngeal sample can be up to 30%, mostly dependent on the timingof sample collection in relation to illness onset and any deficiencies in sampling techniques. If the patient has symptoms concerning for COVID-19 illness, a repeat NAAT test (PCR, Rapid ID Now, etc.) should be performed, at which time the SARS-CoV-2 virus - if present - may have reached a detectable viral load (usually peaking by the end of the first week of symptoms). Tests for IgM and/or IgG Antibodies to the SARS-CoV-2 Virus:Testing for IgM and IgG antibodies approximately 3 weeks after illness o nset will likely indicate if the patient has produced antibodies to the SARS-CoV-2 virus. However, some patients may take longer to develop detectable antibodies, while others infected with SARS-CoV-2 may never develop antibodies, particularly those who have had mild or asymptomatic illness. Of note, if the patient has been vaccinated earlier than 1-2 weeks prior to antibody testing, any positive SARS-CoV-2 IgG antibody result is likely due to vaccination. The specific duration and strength of immunity from SARS-CoV-2 IgG antibodies is highly variable between individuals and is dependent on a variety of factors, including infection vs. vaccination response, initial infection severity, the strengthof the patient's own immune system, and the variants to which the patient has been exposed. ? ------- Interpretation Result Comments:These interpretation comments are based upon all COVID-19 testing the patient has had at [facility], includingmolecular NAAT testing (more commonly known as PCR testing and Rapid ID Now testing) and antibody testing. It does not take into account any testing that a patient has had outside of the [facility] medical record. [facility] LABORATORY SERVICESCOVID QtzitrtABWM-VxD-8 Rapid ID NOW (no units) ? ? Date ? Value ? 10/07/2020 ? Not Detected ? ? ? 09/27/2020 ? Not Detected ? [facility]ORAT[facility] SERVICESUnStarr [facility] HospitalMAGNESIUM2021-08-03 16:45:58 Test Item Value Reference Range Interpretation Comments MAGNESIUM (test code = 0562609429) 1.4 mg/dL 1.7-2.4 L Lab Interpretation (test code = Abnormal 31186-2) [facility]2020-10-08 14:15:12 Test Item Value Reference Range Interpretation Comments POCT GLU (test code = 2588047591) 182 mg/dL 70-110 H Lab Interpretation (test code = Abnormal 71352-8) [facility] Metabolic Panel (NA, K, CL, CO2, GLUCOSE, BUN, CREATININE, CA)2020-10-08 09:58:33 Test Item Value Reference Range Interpretation Comments NA (test code = 135 mmol/L 135-145 7672451683) K (test code = 3.5 mmol/L 3.5-5.0 8372860955) CL (test code = 100 mmol/L 98-108 6860803957) CO2 TOTAL (test code = 28 mmol/L 23-31 8981601426) AGAP (test code = 2-16 2492922247) BUN (test code = 20 mg/dL 7-23 2255842565) GLUCOSE (test code = 181 mg/dL 70-110 H 2935192485) CREATININE (test code = 0.62 mg/dL 0.50-1.04 8456414187) CALCIUM (test code = 8.7 mg/dL 8.6-10.6 1499264507) eGFR (test code = mL/min/1.73m2 1024477848) LYRIC (test code = LYRIC) Association of Glomerular Filtration Rate (GFR) and Staging of Kidney Disease* + --+ --+ ------+| GFR (mL/min/1.73 m2) ?| With Kidney Damage ?| ?Without Kidney Damage+ --------+ --------+ +| ?>90 ?| ?Stage one ?| ? Normal ?+ ---+ ---+ -------+| ?60-89 ?| ?Stage two ?| ? Decreased GFR ? + --+ --+ ------+| ?30-59 ?| ?Stage three ?| ? Stage three ? + --+ --+ ------+| ?15-29 ?| ?Stage four ? | ? Stage four ?+ ---+ ---+ -------+| ?<15 (or dialysis) ? ?| ?Stage five ? | ? Stage five ?+ ---+ ---+ -------+ *Each stage assumes the associated GFR level has been in effect for at least three months. ?Stages 1 to 5, with or without kidney disease, indicate chronic kidney disease. Notes: Determination of stages one and two (with eGFR >59mL/min/1.73 m2) requires estimation of kidney damage for at least three months as defined by structural or functional abnormalities of the kidney, manifested by either:Pathological abnormalities or Markers of kidney damage (including abnormalities in the composition of the blood or urine or abnormalities in imaging tests). Lab Interpretation Abnormal (test code = 73726-2) [facility] with [id number] 09:45:31 Test Item Value Reference Range Interpretation Comments WBC (test code = See_Comment H [Automated 8990-2) message] The sy stem which generated this result transmitted reference range : 4.30 - 11.10 10*3/?L. The reference range was not used to interpret this result as normal/abnormal . RBC (test code = See_Comment L [Automated 629-8) message] The sy stem which generated this result transmitted reference range : 3.93 - 5.25 10*6/?L. The reference range was not used to interpret this result as normal/abnormal . HGB (test code = 10.8 g/dL 11.6-15.0 L 718-7) HCT (test code = 33.4 % 35.7-45.2 L 4544-3) MCV (test code = 86.5 fL 80.6-95.5 787-2) MCH (test code = 28.0 pg 25.9-32.8 785-6) MCHC (test code = 32.3 g/dL 31.6-35.1 786-4) RDW-SD (test code = 41.4 fL 39.0-49.9 68215-5) RDW-CV (test code = 13.2 % 12.0-15.5 788-0) PLT (test code = See_Comment [Automated 777-3) message] The sy stem which generated this result transmitted reference range : 166 - 358 10*3/ ?L. The reference r valentino was not used to interpret this result as normal/abnormal . MPV (test code = 9.7 fL 9.5-12.9 53283-7) NRBC/100 WBC (test See_Comment [Automat ed code = 5390403071) message] The system which generated this result transmitted reference range : 0.0 - 10.0 /100 WBCs. The refer ence range was not u sed to interpret th is result as normal/abnormal . NRBC x10^3 (test code <0.01 See_Comment [Auto mated = 6139016325) message] The s ystem which generated this result transmitted reference range : 10*3/?L. The reference range was not used to interpret this result as normal/abnormal . GRAN MAT (NEUT) % 64.4 % (test code = 770-8) IMM GRAN % (test code 1.70 % = 3485000801) LYMPH % (test code = 22.9 % 736-9) MONO % (test code = 7.6 % 5905-5) EOS % (test code = 2.5 % 713-8) BASO % (test code = 0.9 % 706-2) GRAN MAT x10^3(ANC) 7.57 10*3/uL 1.88-7.09 H (test code = 3538557854) IMM GRAN x10^3 (test 0.20 10*3/uL 0.00-0.06 H code = 8106158559) LYMPH x10^3 (test code 2.70 10*3/uL 1.32-3.29 = 731-0) MONO x10^3 (test code 0.90 10*3/uL 0.33-0.92 = 742-7) EOS x10^3 (test code = 0.30 10*3/uL 0.03-0.39 711-2) BASO x10^3 (test code 0.11 10*3/uL 0.01-0.07 H = 704-7) Lab Interpretation Abnormal (test code = 66750-2) [facility] Worth[facility]rop[facility] [id number] 22:20:28 Test Item Value Reference Interpretation Comments Range TROPONIN I (test 0.008 ng/mL See_Comment [Automated code = 0604246921) message] The system which generated this result transmitted reference range : <=0.034. The reference range was not used to interpret this result as normal/abnormal . LYRIC (test code = Reference (Normal) LYRIC) Range (defined by the 99th percentile reference limit): <= 0.034 ng/mL Note: Cardiac troponin begins to rise 3-4 hours after the onset of ischemia. Repeat in 4-6 hours if the sample was drawn within 3-4 hours of the onset of the symptom and found normal. Diagnosis of myocardial injury is made with acute changes in cTn concentrations with at least one serial sample above the 99th percentile upper reference limit (URL), taken together with the patient's clinical presentation. Biotin has been reported to cause a negative bias, interpret results relative to patient's use of biotin. Lab Interpretation Normal (test code = 33863-3) [facility] Worth[facility]-TERMINAL [id number] 22:20:28 Test Item Value Reference Range Interpretation Comments NT-proBNP (test code 370 pg/mL See_Comment [Autom ated = 6711561240) message] The system which generated this result transmitted reference range : <=450. The reference range was not used to interpret this result as normal/abnormal . LYRIC (test code = LYRIC) Biotin has been reported to cause a negative bias, interpret results relative to patient's use of biotin. Lab Interpretation Normal (test code = 96471-4) [facility] with [id number] 22:13:12 Test Item Value Reference Range Interpretation Comments WBC (test code = See_Comment H [Automated 6690-2) message] The sy stem which generated this result transmitted reference range : 4.30 - 11.10 10*3/?L. The reference range was not used to interpret this result as normal/abnormal . RBC (test code = See_Comment [Automated 789-8) message] The sy stem which generated this result transmitted reference range : 3.93 - 5.25 10*6/?L. The reference range was not used to interpret this result as normal/abnormal . HGB (test code = 11.9 g/dL 11.6-15.0 718-7) HCT (test code = 36.2 % 35.7-45.2 4544-3) MCV (test code = 86.4 fL 80.6-95.5 787-2) MCH (test code = 28.4 pg 25.9-32.8 785-6) MCHC (test code = 32.9 g/dL 31.6-35.1 786-4) RDW-SD (test code = 41.5 fL 39.0-49.9 12596-9) RDW-CV (test code = 13.2 % 12.0-15.5 788-0) PLT (test code = See_Comment [Automated 777-3) message] The sy stem which generated this result transmitted reference range : 166 - 358 10*3/ ?L. The reference r valentino was not used to interpret this result as normal/abnormal . MPV (test code = 9.7 fL 9.5-12.9 92633-2) NRBC/100 WBC (test See_Comment [Automat ed code = 4768051656) message] The system which generated this result transmitted reference range : 0.0 - 10.0 /100 WBCs. The refer ence range was not u sed to interpret th is result as normal/abnormal . NRBC x10^3 (test code <0.01 See_Comment [Auto mated = 2324339281) message] The s ystem which generated this result transmitted reference range : 10*3/?L. The reference range was not used to interpret this result as normal/abnormal . GRAN MAT (NEUT) % 62.1 % (test code = 770-8) IMM GRAN % (test code 2.20 % = 3806801375) LYMPH % (test code = 25.4 % 736-9) MONO % (test code = 7.6 % 5905-5) EOS % (test code = 1.7 % 713-8) BASO % (test code = 1.0 % 706-2) GRAN MAT x10^3(ANC) 7.82 10*3/uL 1.88-7.09 H (test code = 8579657392) IMM GRAN x10^3 (test 0.28 10*3/uL 0.00-0.06 H code = 1750726300) LYMPH x10^3 (test code 3.19 10*3/uL 1.32-3.29 = 731-0) MONO x10^3 (test code 0.95 10*3/uL 0.33-0.92 H = 742-7) EOS x10^3 (test code = 0.21 10*3/uL 0.03-0.39 711-2) BASO x10^3 (test code 0.12 10*3/uL 0.01-0.07 H = 704-7) Lab Interpretation Abnormal (test code = 13160-8) [facility] Worth[facility]MP2021-[facility] 22:08:26 Test Item Value Reference Range Interpretation Comments NA (test code = 135 mmol/L 135-145 3634026314) K (test code = 4.0 mmol/L 3.5-5.0 0308335122) CL (test code = 97 mmol/L 98-108 L 2417696034) CO2 TOTAL (test code = 26 mmol/L 23-31 4102506501) AGAP (test code = 2-16 8375636731) BUN (test code = 18 mg/dL 7-23 6068709301) GLUCOSE (test code = 240 mg/dL 70-110 H 7906035168) CREATININE (test code = 0.69 mg/dL 0.50-1.04 5903353341) TOTAL BILI (test code = 0.3 mg/dL 0.1-1.6 1580717871) CALCIUM (test code = 9.2 mg/dL 8.6-10.6 6116964986) T PROTEIN (test code = 6.8 g/dL 6.3-8.2 1634865995) ALBUMIN (test code = 3.7 g/dL 3.5-5.0 2802354785) ALK PHOS (test code = 120 U/L 34-122 1999008069) ALTv (test code = 18 U/L 5-35 1742-6) AST(SGOT) (test code = 24 U/L 13-40 5921772303) eGFR (test code = mL/min/1.73m2 7623044724) LYRIC (test code = LYRIC) Association of Glomerular Filtration Rate (GFR) and Staging of Kidney Disease* + --+ --+ ------+| GFR (mL/min/1.73 m2) ?| With Kidney Damage ?| ?Without Kidney Damage+ --------+ --------+ +| ?>90 ?| ?Stage one ?| ? Normal ?+ ---+ ---+ -------+| ?60-89 ?| ?Stage two ?| ? Decreased GFR ? + --+ --+ ------+| ?30-59 ?| ?Stage three ?| ? Stage three ? + --+ --+ ------+| ?15-29 ?| ?Stage four ? | ? Stage four ?+ ---+ ---+ -------+| ?<15 (or dialysis) ? ?| ?Stage five ? | ? Stage five ?+ ---+ ---+ -------+ *Each stage assumes the associated GFR level has been in effect for at least three months. ?Stages 1 to 5, with or without kidney disease, indicate chronic kidney disease. Notes: Determination of stages one and two (with eGFR >59mL/min/1.73 m2) requires estimation of kidney damage for at least three months as defined by structural or functional abnormalities of the kidney, manifested by either:Pathological abnormalities or Markers of kidney damage (including abnormalities in the composition of the blood or urine or abnormalities in imaging tests). Lab Interpretation Abnormal (test code = 43285-3) [facility] (ID NOW RAPID TESTING)2020-10-07 22:06:48 Test Item Value Reference Range Interpretation Comments SARS-CoV-2 Rapid ID NOW Not Detected Not Detected (test code = 06954-9) LYRIC (test code = LYRIC) ID NOW COVID-19 Assay is an isothermal nucleic acid amplification test intended for the qualitative detection of nucleic acid from SARS-CoV-2 viral RNA in nasopharyngeal (RESOURCE RECOVERY SPECIALIST) specimens. It is used under Emergency Use Authorization (EUA) by FDA. The limit of detection (LOD) of the assay is 125 Genome Equivalents/mL. A positive result is indicative of the presence of SARS-CoV-2 RNA. ?Clinical correlation with patient history and other diagnostic information is necessary to determine patient infection status. A negative (Not Detected) result does not preclude SARS-CoV-2 infection. In patients with clinical symptoms and other tests that are consistent with SARS-CoV-2 infection, negative results should be treated as presumptive negative and a new specimen should be tested with alternative PCR molecular test. Invalid: Please collect a new specimen for repeat patient testing if clinically indicated. Lab Interpretation Normal (test code = 08960-7) [facility] 1 [id number] 22:06:30CHEST PORTABLE ONE VIEW HISTORY:Palpitations TECHNIQUE: Frontal, portable projection of the chest isobtained. COMPARISON: 09/27/2020 FINDINGS: The lungs are clear. The heart size and mediastinal silhouetteare normal. No pleural effusion or pneumothorax is seen. CONCLUSIONS: No acute cardiopulmonary disease. [facility], Radiant Results Inft User - 10/07/2020 5:07 PM CDT CHEST PORTABLE ONE VIEWHISTORY:PalpitationsTECHNIQUE: Frontal, portable projection of the chest is obtained.COMPARISON: 09/27/2020FINDINGS: The lungs are clear. The heart size andmediastinal silhouetteare normal. No pleural effusion or pneumothorax is seen.CONCLUSIONS: No acute cardiopulmonary disease. [facility] CHEST 1 [id number] 18:49:07Impression: No acute cardiopulmonary disease. [id number] End of Report. Ordering Physician: JESS CHRISTIE History: sob Technique: Portable Chest, AP Comparison: none Findings: The visible bony thorax is intact. The trachea is midline. Theheart size is normal. The pulmonary vascular markings are normal. There isno evidence of gross pulmonary consolidation, pneumothorax, or effusion. [facility], Radiant Results Inft User - 09/27/2020 1:50 PM CDT Ordering Physician: JESS CHRISTIEHistory: sob Technique: Portable Chest, APComparison: noneFindings: The visible bony thorax is intact. The trachea is midline. Theheart size is normal. The pulmonary vascular markings are normal. There isno evidence of gross pulmonary consolidation, pneumothorax, or effusion.IMPRESSIONImpression: No acute cardiopulmonary disease.[id number] of Report. [facility]St[facility] HospitalTROPONIN I 2020-09-27 18:35:37 Test Item Value Reference Interpretation Comments Range TROPONIN I (test 0.004 ng/mL See_Comment [Automated code = 1365514121) message] The system which generated this result transmitted reference range : <=0.034. The reference range was not used to interpret this result as normal/abnormal . LYRIC (test code = Reference (Normal) LYRIC) Range (defined by the 99th percentile reference limit): <= 0.034 ng/mL Note: Cardiac troponin begins to rise 3-4 hours after the onset of ischemia. Repeat in 4-6 hours if the sample was drawn within 3-4 hours of the onset of the symptom and found normal. Diagnosis of myocardial injury is made with acute changes in cTn concentrations with at least one serial sample above the 99th percentile upper reference limit (URL), taken together with the patient's clinical presentation. Biotin has been reported to cause a negative bias, interpret results relative to patient's use of biotin. Lab Interpretation Normal (test code = 45850-7) [facility] Worth[facility]MINAL [id number] 18:31:19 Test Item Value Reference Range Interpretation Comments NT-proBNP (test code 325 pg/mL See_Comment [Autom ated = 2220721507) message] The system which generated this result transmitted reference range : <=450. The reference range was not used to interpret this result as normal/abnormal . LYRIC (test code = LYRIC) Biotin has been reported to cause a negative bias, interpret results relative to patient's use of biotin. Lab Interpretation Normal (test code = 06630-9) [facility] (ID NOW RAPID TESTING)2020-09-27 18:26:18 Test Item Value Reference Range Interpretation Comments SARS-CoV-2 Rapid ID NOW Not Detected Not Detected (test code = 60571-8) LYRIC (test code = LYRIC) ID NOW COVID-19 Assay is an isothermal nucleic acid amplification test intended for the qualitative detection of nucleic acid from SARS-CoV-2 viral RNA in nasopharyngeal (RESOURCE RECOVERY SPECIALIST) specimens. It is used under Emergency Use Authorization (EUA) by FDA. The limit of detection (LOD) of the assay is 125 Genome Equivalents/mL. A positive result is indicative of the presence of SARS-CoV-2 RNA. ?Clinical correlation with patient history and other diagnostic information is necessary to determine patient infection status. A negative (Not Detected) result does not preclude SARS-CoV-2 infection. In patients with clinical symptoms and other tests that are consistent with SARS-CoV-2 infection, negative results should be treated as presumptive negative and a new specimen should be tested with alternative PCR molecular test. Invalid: Please collect a new specimen for repeat patient testing if clinically indicated. Lab Interpretation Normal (test code = 71393-1) [facility]35 Test Item Value Reference Range Interpretation Comments MAGNESIUM (test code = 1726655306) 1.7 mg/dL 1.7-2.4 Lab Interpretation (test code = Normal 13619-0) [facility] (NA, K, CL, CO2, GLUCOSE, BUN, CREATININE, CA)2020-09-27 18:21:53 Test Item Value Reference Range Interpretation Comments NA (test code = 137 mmol/L 135-145 1765734956) K (test code = 3.9 mmol/L 3.5-5.0 6288335260) CL (test code = 96 mmol/L 98-108 L 4764141975) CO2 TOTAL (test code = 30 mmol/L 23-31 8314376003) AGAP (test code = 2-16 3210392175) BUN (test code = 24 mg/dL 7-23 H 2566223992) GLUCOSE (test code = 246 mg/dL 70-110 H 0708948708) CREATININE (test code = 0.87 mg/dL 0.50-1.04 2551571957) CALCIUM (test code = 9.6 mg/dL 8.6-10.6 8730695809) eGFR (test code = mL/min/1.73m2 2432087190) LYRIC (test code = LYRIC) Association of Glomerular Filtration Rate (GFR) and Staging of Kidney Disease* + --+ --+ ------+| GFR (mL/min/1.73 m2) ?| With Kidney Damage ?| ?Without Kidney Damage+ --------+ --------+ +| ?>90 ?| ?Stage one ?| ? Normal ?+ ---+ ---+ -------+| ?60-89 ?| ?Stage two ?| ? Decreased GFR ? + --+ --+ ------+| ?30-59 ?| ?Stage three ?| ? Stage three ? + --+ --+ ------+| ?15-29 ?| ?Stage four ? | ? Stage four ?+ ---+ ---+ -------+| ?<15 (or dialysis) ? ?| ?Stage five ? | ? Stage five ?+ ---+ ---+ -------+ *Each stage assumes the associated GFR level has been in effect for at least three months. ?Stages 1 to 5, with or without kidney disease, indicate chronic kidney disease. Notes: Determination of stages one and two (with eGFR >59mL/min/1.73 m2) requires estimation of kidney damage for at least three months as defined by structural or functional abnormalities of the kidney, manifested by either:Pathological abnormalities or Markers of kidney damage (including abnormalities in the composition of the blood or urine or abnormalities in imaging tests). Lab Interpretation Abnormal (test code = 20458-2) [facility] (ALB,T.PRO,BILI T,BU/BC,ALT,AST,ALK PHOS)2020-09-27 18:21:53 Test Item Value Reference Range Interpretation Comments TOTAL BILI (test code = 8869105818) 0.4 mg/dL 0.1-1.1 BILI UNCON (test code = 1228512092) 0.2 mg/dL 0.1-1.1 BILI CONJ (test code = 0077668404) 0.0 mg/dL 0.0-0.3 T PROTEIN (test code = 4489853746) 7.7 g/dL 6.3-8.2 ALBUMIN (test code = 1328576370) 4.2 g/dL 3.5-5.0 ALK PHOS (test code = 1293312471) 131 U/L 34-122 H ALTv (test code = 1742-6) 20 U/L 5-35 AST(SGOT) (test code = 6812623105) 27 U/L 13-40 Lab Interpretation (test code = Abnormal 60127-7) [facility] WITH [id number] 18:10:33 Test Item Value Reference Range Interpretation Comments WBC (test code = See_Comment [Automated 6825-2) message] The sy stem which generated this result transmitted reference range : 4.30 - 11.10 10*3/?L. The reference range was not used to interpret this result as normal/abnormal . RBC (test code = See_Comment [Automated 159-8) message] The sy stem which generated this result transmitted reference range : 3.93 - 5.25 10*6/?L. The reference range was not used to interpret this result as normal/abnormal . HGB (test code = 11.5 g/dL 11.6-15.0 L 718-7) HCT (test code = 35.8 % 35.7-45.2 4544-3) MCV (test code = 86.7 fL 80.6-95.5 787-2) MCH (test code = 27.8 pg 25.9-32.8 785-6) MCHC (test code = 32.1 g/dL 31.6-35.1 786-4) RDW-SD (test code = 41.4 fL 39.0-49.9 73176-1) RDW-CV (test code = 13.2 % 12.0-15.5 788-0) PLT (test code = See_Comment [Automated 487-3) message] The sy stem which generated this result transmitted reference range : 166 - 358 10*3/ ?L. The reference r valentino was not used to interpret this result as normal/abnormal . MPV (test code = 9.9 fL 9.5-12.9 58045-7) NRBC/100 WBC (test See_Comment [Automat ed code = 2103833248) message] The system which generated this result transmitted reference range : 0.0 - 10.0 /100 WBCs. The refer ence range was not u sed to interpret th is result as normal/abnormal . NRBC x10^3 (test code <0.01 See_Comment [Auto mated = 8656018443) message] The s ystem which generated this result transmitted reference range : 10*3/?L. The reference range was not used to interpret this result as normal/abnormal . GRAN MAT (NEUT) % 60.9 % (test code = 770-8) IMM GRAN % (test code 1.70 % = 8032423965) LYMPH % (test code = 26.4 % 736-9) MONO % (test code = 7.4 % 5905-5) EOS % (test code = 2.7 % 713-8) BASO % (test code = 0.9 % 706-2) GRAN MAT x10^3(ANC) 6.63 10*3/uL 1.88-7.09 (test code = 6574697848) IMM GRAN x10^3 (test 0.19 10*3/uL 0.00-0.06 H code = 1984774969) LYMPH x10^3 (test code 2.87 10*3/uL 1.32-3.29 = 731-0) MONO x10^3 (test code 0.81 10*3/uL 0.33-0.92 = 742-7) EOS x10^3 (test code = 0.29 10*3/uL 0.03-0.39 711-2) BASO x10^3 (test code 0.10 10*3/uL 0.01-0.07 H = 704-7) Lab Interpretation Abnormal (test code = 41957-2) [facility] MYOCARDIUM PERFUSION STRESS AND REST 2020-08-13 22:50:14Impression: Normal myocardial perfusion scan with preserved ejection fraction andnormal wall thickening.I was present for the stress procedure.Pharmacological stress myocardial perfusion imaging reportType: Technetium 99 labeled Myoview rest/stress single isotope SPECTimaging with Ragadenoson pharmacological stress and gated SPECT imaging. Indication: dyspnea Clinical history: hypertension, obesityProcedure: Pharmacological stress test was performed with a bolus dose of 0.4 mg ofRagadenoson. Gated myocardial perfusion imaging was performed at restfollowing the injection of 14.3 millicuries of technetium labeled Myoviewand post stress following the injection of 37.6 millicuries of technetiumlabeled tetrofosmin. Findings: The overall quality of the study was good. Stress EKG revealed no inducible ischemia, reported separately. SPECT images demonstrate homogeneous tracer distribution throughoutthemyocardium. TID ratio 1.1. Gated SPECT images demonstrate normal wall motion and myocardialthickening. Stress Values: ?EDV = 59 mL; ESV = 20 mL; EF = 59%.Rest Values: ?EDV = 57 mL; ESV = 17 mL; EF =71%. [facility], Radiant Results Inft User - 08/13/2020 5:51 PM CDT Pharmacological stress myocardial perfusion imaging reportType: Technetium 99 labeled Myoview rest/stress single isotope SPECTimaging with Ragadenoson pharmacological stress and gated SPECT imaging.Indication: dyspneaClinical history: hypertension, obesity Procedure:Pharmacological stress test was performed with a bolus dose of 0.4 mg ofRagadenoson. Gated myocardial perfusion imaging was performed at restfollowing the injection of 14.3 millicuries of technetium labeled Myoviewand post stress following the injection of 37.6 millicuries of technetiumlabeled tetrofosmin.Findings:The overall quality of the study was good.Stress EKG revealed no inducible ischemia, reported separately. SPECT images demonstrate homogeneous tracer distribution throughout themyocardium. TID ratio 1.1.Gated SPECT images demonstrate normal wall motion and myocardialthickening.Stress Values: EDV = 59 mL; ESV = 20 mL; EF = 59%.Rest Values: EDV = 57 mL; ESV = 17 mL; EF = 71%.IMPRESSIONImpression: Normal myocardial perfusion scan with preserved ejection fraction andnormal wall thickening.I was presentfor the stress procedure.[facility]"
[2021-02-14] MEDS ORDERED: ADENOSINE 6 MG/ 2ML VIAL IV ONE ×2 (11:45→11:57)
[2021-02-14] MEDS ORDERED: NA CHLORIDE 0.9% 500 ML ONE (11:46)
[2021-02-14] MEDS ORDERED: METOPROLOL TARTRATE 5 MG/5 ML INJ IV ONE ×2 (11:59→12:22)
--- NOTE | 2021-02-14 12:04 | RAD REPORT ---
EXAM DESCRIPTION: RAD - Chest Single View - 02/14/2021 11:53 am CLINICAL HISTORY: Tachycardia COMPARISON: July 2018 TECHNIQUE: AP portable chest image was obtained 02/14/2021 11:53 am . FINDINGS: Lungs are clear. Interstitial pattern is similar to comparison. Heart and vasculature are normal. No measurable pleural effusion and no pneumothorax. No acute bony abnormality seen. No acute aortic findings suspected. IMPRESSION: No acute cardiopulmonary process.
[2021-02-14 12:38] LABS: Absolute Lymphocytes (CBC) 2.2 K/uL (0.7-4.9); Basophils % 1.1 % (0-1.3); Hematocrit 33.8 % (36.0-45.0); Lymphocytes % 23.3 % (15.3-44.8); MPV 7.7 fL (7.6-11.3); RBC Red Blood Cell Count 4.04 M/uL (3.86-4.86)
[2021-02-14 12:39] LABS: Protime INR 1.01
[2021-02-14 13:04] LABS: ALT/SGPT 30 U/L (12-78); AST/SGOT 21 U/L (15-37); Albumin 2.8 g/dL (3.4-5.0); Alkaline Phosphatase 86 U/L (45-117); BUN Blood Urea Nitrogen 29 mg/dL (7-18); Bicarbonate 28 mmol/L (21-32); Bilirubin Direct 0.1 mg/dL (0-0.2); Bilirubin Total 0.3 mg/dL (0.2-1.0); Glucose Level 195 mg/dL (74-106); Magnesium 2.1 mg/dL (1.8-2.4); NT PRO-BNP 183 pg/mL (<450); Potassium 3.8 mmol/L (3.5-5.1); Protein, Total 6.9 g/dL (6.4-8.2); Sodium Level 139 mmol/L (136-145); Troponin (Emerg Dept Use Only) < 0.02 ng/mL (0.0-0.045)
[2021-02-14 13:16] LABS: Blood Morphology Comment NOT SEEN (NOT SEEN); Platelet Estimate ADEQ
[2021-02-14] MEDS ORDERED: NA CHLORIDE 0.9% 1,000 ML ONE (14:12)
--- NOTE | 2021-02-14 14:20 | EDPHYS ---
Physician Documentation [facility] Name: Najma Vickers Age: 80 yrs Sex: Female : 1940 Arrival Date: 02/14/2021 Time: 11:16 Bed 17 Private MD: ED Physician Johnson Soto HPI: 02/14 11:39 This 80 yrs old Female presents to ER via Unassigned with complaints of ELEVATED HEART pm1 RATE PER DR SOTO. 11:39 The patient presents with a history of heart racing. Context: The symptoms occur at pm1 rest. Onset: The symptoms/episode began/occurred 3 day(s) ago. Duration: The patient or guardian reports a single episode, that is still ongoing. Modifying factors: The symptoms are aggravated by light activity, The symptoms are alleviated by nothing. Associated signs and symptoms: Pertinent positives: SOB, Pertinent negatives: chest pain. Severity of symptoms: in the emergency department the symptoms are unchanged. The patient has experienced similar episodes in the past, a few times. Historical: - Allergies: 12:38 No Known Allergies; ll3 - Home Meds: 13:13 Aspirin Low Dose 81 mg oral TbEC 1 tab once daily [Active]; furosemide 20 mg Oral tab ll3 [Active]; gabapentin 300 mg (9)- 600 mg (69) oral Tb24 [Active]; meloxicam 15 mg oral tab [Active]; Metformin Oral 100 mg [Active]; metoprolol ta-hydrochlorothiaz 50-25 mg oral tab 2 times per day [Active]; oxcarbazepine 150 mg oral Tb24 twice a day [Active]; Micardis 80 mg Oral tab once daily [Active]; 15:28 atorvastatin 40 mg oral tab nightly [Active]; glimepiride 4 mg Oral tab 1 tab twice a ll3 day [Active]; hydrochlorothiazide 12.5 mg Oral cap twice a day [Active]; levetiracetam 1500 MG oral soln 2 times per day [Active]; levothyroxine 50 mcg cap every morning [Active]; - PMHx: 13:13 Seizure; Hypothyroidism; Diabetes mellitus; Hypertensive disorder; Neuropathy; Breast ll3 Cancer; - PSHx: 13:13 Cholecystectomy; Hysterectomy; Hernia repair; ll3 - Immunization history:: Adult Immunizations unknown. - Social history:: Smoking status: Patient denies any tobacco usage or history of. ROS: 11:59 Constitutional: Negative for fever, chills, and weight loss. pm1 11:59 Abdomen/GI: Negative for abdominal pain, nausea, vomiting, diarrhea, and constipation, Back: Negative for injury and pain, MS/Extremity: Negative for injury and deformity, Skin: Negative for injury, rash, and discoloration, Neuro: Negative for headache, weakness, numbness, tingling, and seizure. 11:59 Cardiovascular: Positive for palpitations, Negative for chest pain, edema, orthopnea. 11:59 Respiratory: Positive for shortness of breath, Negative for cough, sputum production, wheezing. 11:59 All other systems are negative. Exam: 11:59 Constitutional: This is a well developed, well nourished patient who is awake, alert, pm1 and in no acute distress. Head/Face: Normocephalic, atraumatic. 11:59 Skin: Warm, dry with normal turgor. Normal color with no rashes, no lesions, and no evidence of cellulitis. MS/ Extremity: Pulses equal, no cyanosis. Neurovascular intact. Full, normal range of motion. 11:59 Cardiovascular: Rate: tachycardic, SVT on Telemetry rate between 150-170s, Rhythm: regular, Pulses: no pulse deficits are appreciated, Heart sounds: normal, normal S1and S2, Edema: pedal edema, that is mild. 11:59 Respiratory: Exam negative for acute changes, the patient does not display signs of respiratory distress, Respirations: normal, Breath sounds: are clear throughout. 11:59 Abdomen/GI: Inspection: obese Palpation: abdomen is soft and non-tender, in all quadrants. 11:59 Neuro: Exam negative for acute changes, Orientation: is normal, Mentation: is normal, Motor: is normal, moves all fours. Vital Signs: 11:30 BP 127 / 76; Pulse 172; Resp 20; Temp 98.8; Pulse Ox 96% on R/A; Weight 90.72 kg; jl7 11:50 BP 112 / 61; Pulse 163; Resp 22; Pulse Ox 100% ; jl7 12:00 BP 108 / 56; Pulse 143; Resp 20; Pulse Ox 98% ; jl7 12:15 BP 107 / 68; Pulse 126; Resp 19; Pulse Ox 98% ; jl7 12:20 BP 117 / 58; Pulse 126; Resp 22; Pulse Ox 98% ; jl7 12:30 BP 107 / 51; Pulse 121; Resp 20; Pulse Ox 98% ; jl7 13:59 BP 111 / 64; Pulse 125; Resp 15; Pulse Ox 98% ; ll3 15:00 BP 112 / 62; Pulse 126; Resp 23; Pulse Ox 99% on R/A; ll3 16:22 BP 101 / 47; Pulse 69; Resp 19; Pulse Ox 99% on R/A; ll3 17:15 BP 114 / 60; Pulse 71; Resp 21; Pulse Ox 96% on R/A; ll3 18:34 BP 94 / 57; Pulse 108; Resp 18; Pulse Ox 98% on R/A; ll3 11:30 Body Mass Index 33.28 (90.72 kg, ) 7 MDM: 11:28 Patient medically screened. pm1 14:14 Data reviewed: vital signs. Data interpreted: Pulse oximetry: on room air is 98 %. pm1 Interpretation: normal. 02/14 11:36 Order name: Basic Metabolic Panel; Complete Time: 13:50 pm1 02/14 11:36 Order name: CBC with Diff; Complete Time: 13:17 pm1 02/14 11:36 Order name: LFT's; Complete Time: 14:14 pm1 02/14 11:36 Order name: Magnesium; Complete Time: 14:14 pm1 02/14 11:36 Order name: NT PRO-BNP; Complete Time: 14:14 pm1 02/14 11:36 Order name: PT-INR; Complete Time: 13:17 pm1 02/14 11:36 Order name: Troponin (emerg Dept Use Only); Complete Time: 14:14 pm1 02/14 11:36 Order name: XRAY Chest (1 view); Complete Time: 12:05 pm1 02/14 11:36 Order name: TSH; Complete Time: 14:14 pm1 02/14 13:07 Order name: Manual Differential; Complete Time: 13:17 EDMS 02/14 13:20 Order name: T4 Free; Complete Time: 14:14 EDMS 02/14 14:31 Order name: CT Chest For PE Angio; Complete Time: 15:37 pm1 02/14 15:34 Order name: SARS-COV-2 RT PCR; Complete Time: 18:21 EDMS 02/14 11:36 Order name: EKG; Complete Time: 11:36 pm1 02/14 11:36 Order name: Cardiac monitoring; Complete Time: 12:38 pm1 02/14 11:36 Order name: EKG - Nurse/Tech; Complete Time: 12:38 pm1 02/14 11:36 Order name: IV Saline Lock; Complete Time: 12:38 pm1 02/14 11:36 Order name: Labs collected and sent; Complete Time: 12:38 pm1 02/14 11:36 Order name: O2 Per Protocol; Complete Time: 12:38 pm1 02/14 14:43 Order name: Diet Ada 1800 Jimmy; Complete Time: 14:43 pm1 02/14 16:27 Order name: CONS Physician Consult EDMS 02/14 11:36 Order name: O2 Sat Monitoring; Complete Time: 12:38 pm1 Administered Medications: 11:50 Drug: NS 0.9% 500 ml Route: IV; Rate: bolus; Site: right hand; jl7 12:30 Follow up: Response: No adverse reaction; IV Status: Completed infusion; IV Intake: jl7 500ml 11:50 Drug: Adenocard (adenosine) 12 mg Route: IVP; Site: right hand; jl7 11:53 Follow up: Response: No change in condition jl7 11:53 Drug: Adenocard (adenosine) 6 mg Route: IVP; Site: right hand; jl7 11:57 Follow up: Response: No adverse reaction; No change in condition jl7 11:58 Drug: Adenocard (adenosine) 6 mg Route: IVP; Site: right hand; jl7 12:04 Follow up: Response: No adverse reaction; No change in condition jl7 12:02 Drug: Metoprolol 5 mg Route: IVP; Site: right hand; jl7 12:23 Follow up: Response: No adverse reaction; Other; HR decreased jl7 12:26 Drug: Metoprolol 5 mg Route: IVP; Site: right hand; jl7 12:48 Follow up: Response: No adverse reaction; No change in condition jl7 14:30 Drug: NS 0.9% 1000 ml Route: IV; Rate: 75 ml/hr; Site: right hand; ll3 18:27 Follow up: Response: No adverse reaction; IV Status: Infusion continued upon admission ll3 15:28 Drug: Metoprolol 25 mg Route: PO; ll3 16:00 Follow up: Response: No adverse reaction; Cardiac rhythm changed ll3 Disposition Summary: 02/14/21 14:20 Hospitalization Ordered Hospitalization Status: Inpatient Admission pm1 Provider: [place] pm1 Location: Telemetry/MedSurg (Inpatient) pm1 Condition: Stable pm1 Problem: new pm1 Symptoms: have improved pm1 Bed/Room Type: Standard pm1 Room Assignment: 209(02/14/21 20:18) cg Diagnosis - Supraventricular tachycardia pm1 Forms: - Medication Reconciliation Form pm1 - SBAR form pm1 Addendum: 02/17/2021 11:24 Co-signature as Attending Physician, Johnson Soto MD I agree with the assessment and k dr plan of care. Signatures: Dispatcher [employer] EDDC Johnson Soto MD MD kdr Mary Vargas RN RN cg Kaushal Dai, DAVID SEAMLESS H[employer] KNITTER pm1 Arleen Li RN RN jl7 Fred Lopez RN RN ll3 Corrections: (The following items were deleted from the chart) 02/14 15:33 14:09 CORONAVIRUS+MR.LAB.BRZ ordered. EDDC EDMS 15:48 13:13 Home Meds: atorvastatin 40 mg oral tab; ll3 ll3 15:48 13:13 Home Meds: glimepiride 4 mg Oral tab 1 tab 3x per day; ll3 ll3 15:48 13:13 Home Meds: hydrochlorothiazide 12.5 mg Oral cap; ll3 ll3 15:48 13:13 Home Meds: levetiracetam 500 mg/5 mL (5 mL) oral soln 2 times per day; ll3 ll3 15:48 13:13 Home Meds: levothyroxine 50 mcg cap; ll3 ll3 20:18 14:20 pm1 cg
--- NOTE | 2021-02-14 14:20 | ER ---
Nurse's Notes [facility] Name: Najma Vickers Age: 80 yrs Sex: Female : 1940 Arrival Date: 02/14/2021 Time: 11:16 Bed 17 Private MD: Diagnosis: Supraventricular tachycardia Presentation: 02/14 11:30 Chief complaint: Patient states: Pt states her heart has been racing for the last 5 ll3 days Patient's son or daughter states: Daughter states the pt has not taken her medication at night for 3 days. Coronavirus screen: At this time, the client does not indicate any symptoms associated with coronavirus-19. Ebola Screen: No symptoms or risks identified at this time. 11:30 Method Of Arrival: Ambulatory ll3 11:30 Initial Sepsis Screen: Does the patient meet any 2 criteria? HR > 90 bpm. No. Patient's ll3 initial sepsis screen is negative. Does the patient have a suspected source of infection? No. Patient's initial sepsis screen is negative. Risk Assessment: Do you want to hurt yourself or someone else? Patient reports no desire to harm self or others. Onset of symptoms is unknown. 11:30 Acuity: HERMAN 1 ll3 11:30 Acuity: HERMAN 2 ll3 Triage Assessment: 12:38 General: Appears in no apparent distress. comfortable, Behavior is calm, cooperative, ll3 anxious. Pain: Denies pain. Neuro: Level of Consciousness is awake, alert, obeys commands, Oriented to person, place, time, situation. Cardiovascular: Reports Racing heart since 5 days Patient's skin is warm and dry. Rhythm is SVT Chest pain is denied Parent/caregiver reports patient has had shortness of breath. Respiratory: Airway is patent Respiratory effort is even, unlabored, Respiratory pattern is regular, symmetrical. Derm: Skin is pink, warm \T\ dry. Historical: - Allergies: 12:38 No Known Allergies; ll3 - Home Meds: 13:13 Aspirin Low Dose 81 mg oral TbEC 1 tab once daily [Active]; furosemide 20 mg Oral tab ll3 [Active]; gabapentin 300 mg (9)- 600 mg (69) oral Tb24 [Active]; meloxicam 15 mg oral tab [Active]; Metformin Oral 100 mg [Active]; metoprolol ta-hydrochlorothiaz 50-25 mg oral tab 2 times per day [Active]; oxcarbazepine 150 mg oral Tb24 twice a day [Active]; Micardis 80 mg Oral tab once daily [Active]; 15:28 atorvastatin 40 mg oral tab nightly [Active]; glimepiride 4 mg Oral tab 1 tab twice a ll3 day [Active]; hydrochlorothiazide 12.5 mg Oral cap twice a day [Active]; levetiracetam 1500 MG oral soln 2 times per day [Active]; levothyroxine 50 mcg cap every morning [Active]; - PMHx: 13:13 Seizure; Hypothyroidism; Diabetes mellitus; Hypertensive disorder; Neuropathy; Breast ll3 Cancer; - PSHx: 13:13 Cholecystectomy; Hysterectomy; Hernia repair; ll3 - Immunization history:: Adult Immunizations unknown. - Social history:: Smoking status: Patient denies any tobacco usage or history of. Screenin:40 Abuse screen: Denies threats or abuse. Nutritional screening: No deficits noted. ll3 Tuberculosis screening: No symptoms or risk factors identified. Fall Risk IV access (20 points). Mental Status- Oriented to own ability (0 pts). Total Rodriguez Fall Scale indicates No Risk (0-24 pts). Assessment: 11:30 General: See triage. ll3 11:50 Reassessment: DAVID Easley at bedside, ACLS protocol followed for SVT. ll3 13:59 Reassessment: Patient appears in no apparent distress at this time. No changes from ll3 previously documented assessment. Patient and/or family updated on plan of care and expected duration. Pain level reassessed. Patient is alert, oriented x 3, equal unlabored respirations, skin warm/dry/pink. 16:15 Reassessment: Dr. Barfield at bedside assessing pt. ll3 18:30 Reassessment: Patient appears in no apparent distress at this time. Patient and/or ll3 family updated on plan of care and expected duration. Pain level reassessed. Patient is alert, oriented x 3, equal unlabored respirations, skin warm/dry/pink. Patient denies pain at this time. Patient states symptoms have improved. Vital Signs: 11:30 BP 127 / 76; Pulse 172; Resp 20; Temp 98.8; Pulse Ox 96% on R/A; Weight 90.72 kg; jl7 11:50 BP 112 / 61; Pulse 163; Resp 22; Pulse Ox 100% ; jl7 12:00 BP 108 / 56; Pulse 143; Resp 20; Pulse Ox 98% ; jl7 12:15 BP 107 / 68; Pulse 126; Resp 19; Pulse Ox 98% ; jl7 12:20 BP 117 / 58; Pulse 126; Resp 22; Pulse Ox 98% ; jl7 12:30 BP 107 / 51; Pulse 121; Resp 20; Pulse Ox 98% ; jl7 13:59 BP 111 / 64; Pulse 125; Resp 15; Pulse Ox 98% ; ll3 15:00 BP 112 / 62; Pulse 126; Resp 23; Pulse Ox 99% on R/A; ll3 16:22 BP 101 / 47; Pulse 69; Resp 19; Pulse Ox 99% on R/A; ll3 17:15 BP 114 / 60; Pulse 71; Resp 21; Pulse Ox 96% on R/A; ll3 18:34 BP 94 / 57; Pulse 108; Resp 18; Pulse Ox 98% on R/A; ll3 11:30 Body Mass Index 33.28 (90.72 kg, ) jl7 ED Course: 11:16 Patient arrived in ED. kc5 11:25 Kaushal Dai NP is PHCP. pm1 11:25 Johnson Soto MD is Attending Physician. pm1 11:30 monitor tech on. Pulse ox on. NIBP on. jl7 11:30 Warm blanket given. jl7 11:40 Inserted saline lock: 20 gauge in right hand, using aseptic technique. Blood collected. jl7 11:40 Initial lab(s) drawn, by ga, sent to lab. EKG done, by ED staff, reviewed by Kaushal Dai NP. 11:53 XRAY Chest (1 view) In Process Unspecified. EDMS 12:36 Triage completed. ll3 12:38 Arleen Li, KRYS is Primary Nurse. jl7 12:38 Arm band placed on. ll3 12:40 Patient has correct armband on for positive identification. Placed in gown. Bed in low ll3 position. Call light in reach. Side rails up X 1. 13:00 COVID swab sent to lab. jl7 14:19 [place] Barfield MD is Hospitalizing Provider. pm1 15:13 CT Chest For PE Angio In Process Unspecified. EDMS 21:48 No provider procedures requiring assistance completed. Patient admitted, IV remains in [address] Administered Medications: 11:50 Drug: NS 0.9% 500 ml Route: IV; Rate: bolus; Site: right hand; jl7 12:30 Follow up: Response: No adverse reaction; IV Status: Completed infusion; IV Intake: jl7 500ml 11:50 Drug: Adenocard (adenosine) 12 mg Route: IVP; Site: right hand; jl7 11:53 Follow up: Response: No change in condition jl7 11:53 Drug: Adenocard (adenosine) 6 mg Route: IVP; Site: right hand; jl7 11:57 Follow up: Response: No adverse reaction; No change in condition jl7 11:58 Drug: Adenocard (adenosine) 6 mg Route: IVP; Site: right hand; jl7 12:04 Follow up: Response: No adverse reaction; No change in condition jl7 12:02 Drug: Metoprolol 5 mg Route: IVP; Site: right hand; jl7 12:23 Follow up: Response: No adverse reaction; Other; HR decreased jl7 12:26 Drug: Metoprolol 5 mg Route: IVP; Site: right hand; jl7 12:48 Follow up: Response: No adverse reaction; No change in condition 7 14:30 Drug: NS 0.9% 1000 ml Route: IV; Rate: 75 ml/hr; Site: right hand; ll3 18:27 Follow up: Response: No adverse reaction; IV Status: Infusion continued upon admission ll3 15:28 Drug: Metoprolol 25 mg Route: PO; ll3 16:00 Follow up: Response: No adverse reaction; Cardiac rhythm changed 3 Intake: 12:30 IV: 500ml; Total: 500ml. jl7 Outcome: 14:20 Decision to Hospitalize by Provider. pm1 21:48 Admitted to Tele accompanied by tech, via wheelchair. [facility] 21:48 Condition: stable 21:48 Instructed on the need for admit. 21:48 Patient left the ED. 5 Signatures: Dispatcher [employer] EDMS Kaushal Dai NP TOOL AND DIE INSPECTOR pm1 Arleen Li RN RN jl7 Fred Lopez RN RN 3 Diane Agosto 5 Thelma, Darline, RN RN sm5 Corrections: (The following items were deleted from the chart) 12:37 11:30 BP 105 / 79; Pulse 126bpm; Resp 20bpm; Pulse Ox 96% RA; Temp 98.8F Temporal; ll3 ll3 12:44 12:40 Inserted saline lock: 20 gauge in right antecubital area, using aseptic ll3 technique. Blood collected. ll3 12:51 11:30 BP 105 / 79; Pulse 126bpm; Resp 20bpm; Pulse Ox 96% RA; Temp 98.8F Temporal; jl7 90.72 kg Reported; Height 5 ft. 5 in. Reported; BMI: 33.2; ll3 15:48 13:13 Home Meds: atorvastatin 40 mg oral tab; ll3 ll3 15:48 13:13 Home Meds: glimepiride 4 mg Oral tab 1 tab 3x per day; ll3 ll3 15:48 13:13 Home Meds: hydrochlorothiazide 12.5 mg Oral cap; ll3 ll3 15:48 13:13 Home Meds: levetiracetam 500 mg/5 mL (5 mL) oral soln 2 times per day; ll3 ll3 15:48 13:13 Home Meds: levothyroxine 50 mcg cap; ll3 ll3 18:16 12:40 Inserted saline lock: 20 gauge in right hand, using aseptic technique. Blood jl7 collected. ll3
[2021-02-14] MEDS ORDERED: METOPROLOL TAR 25 MG TAB ONE (14:52)
--- NOTE | 2021-02-14 15:29 | RAD REPORT ---
EXAM DESCRIPTION: CT - Chest For Pe Angio - 02/14/2021 3:13 pm CLINICAL HISTORY: SOB COMPARISON: No comparisons FINDINGS: Chest Wall: No suspicious thyroid nodules or pathologic lymphadenopathy. Lungs: No acute abnormality. Pleura: No significant effusions or pneumothorax. Mediastinum/samanta: No pathologic lymphadenopathy. Pulmonary arteries/Aorta: No filling defect identified. No aortic aneurysm. Heart: No significant pericardial effusion. Normal heart size. Upper abdomen: No acute abnormality. Cholecystectomy. Bones: No acute abnormality. All CT scans are performed using dose optimization technique as appropriate and may include automated exposure control or mA/KV adjustment according to patient size. IMPRESSION: Negative for pulmonary embolism. No other acute findings are present within the chest.
--- NOTE | 2021-02-14 16:31 | P.HP ---
Certification for Inpatient Patient admitted to: Observation With expected LOS: <2 Midnights Practitioner: I am a practitioner with admitting privileges, knowledge of patient current condition, hospital course, and medical plan of care. Services: Services provided to patient in accordance with Admission requirements found in Title 42 Section 412.3 of the Code of Federal Regulations Patient History Date of Service: 02/14/21 Reason for admission: SVT History of Present Illness: 71yo F, PMH: seizures, IDDM2, Hypothyroidism, HTN, h/o breast cancer Sent to ED by PCP. Patient has been having high heart rates up to 170 at home. Ongoing for several decades but worse over last 8 months and even more consistent / frequent over last 3-4 days. Patient states she missed her evening dose of metoprolol for 3 days in a row last week, but has been taking medications as prescribed over the last 4-5 days. She did receive her COVID booster on 4 days ago. Associated with shortness of breath, fatigue, lightheadedness. Denies any recent illness, no fever/chills, no chest pain, no abd pain, no nausea/vomiting, no diarrhea, no rash. Saw sports marketing coordinator ~2-3 months ago, reportedly had normal echocardiogram at that time. She was noted to be in SVT in 170s, adenosine x1 with no effect. Received IV lopressor x2 with improvement down to 120s, then given PO. A few hours later, patient is sinus rhythm in 70s. Reports h/o missed beats / skipped beats that occur randomly. She has fast heart rates intermittently even when asleep. Allergies No Known Allergies Allergy (Unverified 07/22/18 12:37) Home Medications: Aspirin Chewable [Aspirin Chewable*] 81 mg PO DAILY 07/22/18 Cranberry Fruit Extract/Vit C [Cvs Cranberry-Vitamin C Sfgl] 2 cap PO DAILY 07/22/18 Dapagliflozin Propanediol [Farxiga] 10 mg PO DAILY 07/22/18 Gabapentin 300 mg PO BID 07/22/18 Glimepiride [Amaryl] 4 mg PO BID 07/22/18 Iron Elemental 1 tab PO DAILY 07/22/18 Levetiracetam [Keppra] 1,500 mg PO BID 07/22/18 Levothyroxine [Synthroid*] 50 mcg PO DAILY WITH BREAKFAST 07/22/18 Metoprolol Succinate [Toprol Xl*] 150 mg PO BID 07/22/18 OXcarbazepine [Oxcarbazepine] 300 mg PO DAILY AT SUPPER 07/22/18 OXcarbazepine [Trileptal] 300 mg PO BEDTIME 07/22/18 Telmisartan/Hydrochlorothiazid [Telmisartan-Hctz 80-25 mg Tab] 1 tab PO DAILY 07/22/18 OXcarbazepine [Trileptal*] 1 tab PO DAILY 07/24/18 clindamycin HCL [Cleocin Cap] 150 mg PO QID #28 cap 07/25/18 - Past Medical/Surgical History Diabetic: Yes -: HTN -: Sierzures -: minigitis -: neuropathy -: DM -: hyster -: ne -: hernia repair - Family History Family History: Reviewed- Non-Contributory - Social History Smoking Status: Former smoker (quit 40yrs ago) Alcohol use: No CD- Drugs: No Caffeine use: Yes Place of Residence: Home Review of Systems 10-point ROS is otherwise unremarkable Physical Examination - Physical Exam General: Alert, In no apparent distress, Oriented x3 HEENT: Mucous membr. moist/pink, Sclerae nonicteric Neck: Supple, JVD not distended Respiratory: Clear to auscultation bilaterally Cardiovascular: Regular rate/rhythm, Edema (trace b/l pedal edema) Gastrointestinal: Soft and benign, Non-distended, No tenderness Musculoskeletal: No swelling Integumentary: No rashes, No significant lesion Neurological: Normal speech, Normal strength at 5/5 x4 extr - Studies Laboratory Data (last 24 hrs) 02/14/21 12:25: PT 11.6, INR 1.01 02/14/21 12:25: WBC 9.60, Hgb 11.1 L, Hct 33.8 L, Plt Count 286 02/14/21 12:25: Sodium 139, Potassium 3.8, BUN 29 H, Creatinine 1.08, Glucose 19 5 H, Magnesium 2.1, Total Bilirubin 0.3, AST 21, ALT 30, Alkaline Phosphatase 86 Assessment and Plan - Advance Directives Does patient have a Living Will: Yes Does patient have a Durable POA for Healthcare: No Physician Review Additional Text: Problem List SVT / Tachyarrhythmia, h/o SVT DM2, insulin dependent with neuropathy HTN Hypothyroidism h/o breast cancer ?CHF s/p adenosine x1 with no effect, s/p lopressor x2 IV, then given PO, with improvement HR currently in 70s, sinus rhythm Continue metoprolol PO cardiology consulted patient with h/o this issue for many months, was recommended to have ablation, however schedule was pushed back due to COVID continue home seizure medications, hold anti-hypertensives for now continue synthroid hold metformin accuchecks / sliding scale VTE: lovenox Code: full Dispo: anticipate dc home in 24-48hrs Time Spent Managing Pts Care (In Minutes): 60
[2021-02-14] MEDS: INSULIN -REGULAR HUMAN 50 UNIT/0.5 ML ML SQ SCH ×2 (20:03→21:00)
[2021-02-14] MEDS: METOPROLOL TAR 50 MG TAB PO SCH (21:00)
[2021-02-14] MEDS ORDERED: LEVETIRACETAM 500 MG PO SCH (21:00)
[2021-02-14] MEDS: OXcarbazepine 150 MG TAB PO SCH (21:00)
[2021-02-15 00:06] VITALS: BMI 33.3
[2021-02-15 01:06] LABS: Urine Appearance CLOUDY (Clear); Urine Bilirubin NEGATIVE (Negative); Urine Blood NEGATIVE (Negative); Urine Color DK YELLOW (Yellow); Urine Glucose NEGATIVE (Negative); Urine Protein NEGATIVE (Negative); Urine Specific Gravity >=1.030 (1.005-1.030); Urine pH 6.5 (5.0-7.0)
[2021-02-15 01:14] LABS: Urine Microscopic Reflex ORDER UMIC
[2021-02-15] MEDS: METOPROLOL TAR 50 MG TAB PO SCH ×2 (01:14→09:30)
[2021-02-15 01:24] LABS: Urine Bacteria >50 /HPF (<20)
--- NOTE | 2021-02-15 05:59 | P.PN ---
Date of Service: 02/15/21
[2021-02-15 06:06] LABS: Absolute Lymphocytes (CBC) 2.4 K/uL (0.7-4.9); Hematocrit 34.3 % (36.0-45.0); Lymphocytes % 21.6 % (15.3-44.8); MPV 8.1 fL (7.6-11.3); RBC Red Blood Cell Count 4.09 M/uL (3.86-4.86)
[2021-02-15 06:17] LABS: Bilirubin Total 0.3 mg/dL (0.2-1.0); Magnesium 2.6 mg/dL (1.8-2.4); Potassium 3.7 mmol/L (3.5-5.1); Protein, Total 7.3 g/dL (6.4-8.2)
[2021-02-15] MEDS: INSULIN -REGULAR HUMAN 50 UNIT/0.5 ML ML SQ SCH ×2 (07:30→11:30)
[2021-02-15] MEDS ORDERED: LEVOTHYROXINE 0.05 MG PO SCH (08:00)
[2021-02-15] MEDS ORDERED: ASPIRIN 81 MG CHEWABLE TABLET PO SCH (09:00)
[2021-02-15] MEDS ORDERED: ENOXAPARIN 40 MG/0.4 ML SQ SCH (09:00)
[2021-02-15] MEDS: OXcarbazepine 150 MG TAB PO SCH (09:32)
[2021-02-15 10:14] LABS: Urine Appearance CLOUDY (Clear); Urine Bilirubin NEGATIVE (Negative); Urine Blood NEGATIVE (Negative); Urine Color DK YELLOW (Yellow); Urine Glucose NEGATIVE (Negative); Urine Protein NEGATIVE (Negative); Urine Specific Gravity >=1.030 (1.005-1.030)
[2021-02-15 10:26] LABS: Urine Microscopic Reflex ORDER UMIC
[2021-02-15 10:38] LABS: Urine Bacteria LOADED /HPF (<20); Urine Mucus 1+ /HPF (NONE SEEN); Urine RBC <5 /HPF (NONE SEEN)
[2021-02-15] MEDS ORDERED: CEFTRIAXONE 1,000 MG in NA CHLORIDE 0.9% 50 ML IVPB SCH (11:00)
[2021-02-15] MEDS ORDERED: CEFTRIAXONE 1000 MG/VIAL ONE (12:14)
[2021-02-15] MEDS ORDERED: NA CHLORIDE 0.9% 50 ML ONE (12:15)
--- NOTE | 2021-02-15 16:36 | P.DS ---
Admission Date: 02/14/21 Discharge Date: 02/15/21 Disposition: ROUTINE DISCHARGE Discharge Condition: GOOD Reason for Admission: SVT Consultations: Cardiology - Dr. Ward Procedures: CXR (02/14): FINDINGS: Lungs are clear. Interstitial pattern is similar to comparison. Heart and vasculature are normal. No measurable pleural effusion and no pneumothorax. No acute bony abnormality seen. No acute aortic findings suspected. IMPRESSION: No acute cardiopulmonary process. CTA Chest (02/14): FINDINGS: Chest Wall: No suspicious thyroid nodules or pathologic lymphad enopathy. Lungs: No acute abnormality. Pleura: No significant effusions or pneumothorax. Mediastinum/samanta: No pathologic lymphadenopathy. Pulmonary arteries/Aorta: No filling defect identified. No aortic aneurysm. Heart: No significant pericardial effusion. Normal heart size. Upper abdomen: No acute abnormality. Cholecystectomy. Bones: No acute abnormality. All CT scans are performed using dose optimization technique as appropriate and may include automated exposure control or mA/KV adjustment according to patient size. IMPRESSION: Negative for pulmonary embolism. No other acute findings are present within the chest. Problem List SVT / Tachyarrhythmia, h/o SVT DM2, insulin dependent with neuropathy HTN Hypothyroidism h/o breast cancer Brief History of Present Illness: 71yo F, PMH: seizures, IDDM2, Hypothyroidism, HTN, h/o breast cancer Sent to ED by PCP. Patient has been having high heart rates up to 170 at home. Ongoing for several decades but worse over last 8 months and even more consistent / frequent over last 3-4 days. Patient states she missed her evening dose of metoprolol for 3 days in a row last week, but has been taking medications as prescribed over the last 4-5 days. She did receive her COVID booster on 4 days ago. Associated with shortness of breath, fatigue, lightheadedness. Denies any recent illness, no fever/chills, no chest pain, no abd pain, no nausea/vomiting, no diarrhea, no rash. Saw jawbone breaker ~2-3 months ago, reportedly had normal echocardiogram at that time. She was noted to be in SVT in 170s, adenosine x1 with no effect. Received IV lopressor x2 with improvement down to 120s, then given PO. A few hours later, patient is sinus rhythm in 70s. Reports h/o missed beats / skipped beats that occur randomly. She has fast heart rates intermittently even when asleep. Hospital Course: Patient maintained sinus rhythm with HR < 100 after midnight of admission. She continued to do well the following day. She was ambulating, tolerating diet, denied any shortness of breath or chest pain. Cardiology evaluated her and recommended discharge home, to continue metoprolol 50mg BID. She will follow up with Cardiology and will need ablation. Blood pressure was noted to be low-normal ranging from 105-120 systolic. She reported blood pressure readings in 80s-90s systolic at home. Recommended discontinuation of her telmisartan-HCTZ for now and to monitor BP at home, with close follow up with her PCP. UA was noted to have pyuria and bacteruria. She reported dysuria, incontinence, and increased frequency, but also stated these symptoms have been ongoing for "a long time", and maybe recently worse. Received IV rocephin x1 and discharged with 5 day course of cefpodoxime. Vital Signs/Physical Exam: Physical Exam General: Alert, In no apparent distress, Oriented x3 HEENT: Mucous membr. moist/pink, Sclerae nonicteric Respiratory: Clear to auscultation bilaterally Cardiovascular: Regular rate/rhythm, trace b/l pedal edema Gastrointestinal: Soft and benign, Non-distended, No tenderness Integumentary: No rashes, No significant lesion Neurological: Normal speech, Normal strength at 5/5 x4 extr Temp Pulse Resp BP Pulse Ox 97.2 F 68 16 105/50 L 98 02/15/21 12:00 02/15/21 12:00 02/15/21 12:00 02/15/21 12:00 02/15/21 08:00 Laboratory Data at Discharge: WBC 11.00 K/uL (4.3-10.9) H D 02/15/21 05:21 Hgb 11.4 g/dL (12.0-15.0) L 02/15/21 05:21 Hct 34.3 % (36.0-45.0) L 02/15/21 05:21 Plt Count 314 K/uL (152-406) 02/15/21 05:21 PT 11.6 SECONDS (9.5-12.5) 02/14/21 12:25 INR 1.01 02/14/21 12:25 Sodium 138 mmol/L (136-145) 02/15/21 05:21 Potassium 3.7 mmol/L (3.5-5.1) 02/15/21 05:21 BUN 28 mg/dL (7-18) H 02/15/21 05:21 Creatinine 0.93 mg/dL (0.55-1.3) 02/15/21 05:21 Glucose 160 mg/dL (74-106) H 02/15/21 05:21 Magnesium 2.6 mg/dL (1.8-2.4) H D 02/15/21 05:21 Total Bilirubin 0.3 mg/dL (0.2-1.0) 02/15/21 05:21 AST 29 U/L (15-37) 02/15/21 05:21 ALT 33 U/L (12-78) 02/15/21 05:21 Alkaline Phosphatase 90 U/L (45-117) 02/15/21 05:21 Home Medications: Levetiracetam [Keppra] 1,500 mg PO BID 07/22/18 Levothyroxine [Synthroid*] 50 mcg PO [id number] 07/22/18 OXcarbazepine [Trileptal*] 1 tab PO BID 07/24/18 Cefpodoxime Proxetil 100 mg PO BID 5 Days #10 tablet 02/15/21 Glimepiride 1 mg PO BID 02/15/21 Metformin ER [Glucophage ER*] 500 mg PO DAILY 02/15/21 Metoprolol Succinate 50 mg PO BID 02/15/21 New Medications: Cefpodoxime Proxetil 100 mg PO BID 5 Days #10 tablet Physician Discharge Instructions: You were found to have a rapid heart beat (SVT - supravetricular tachycardia). This improved with IV metoprolol and then you were maintained on oral metoprolol tablets (50mg twice daily). Recommend continuation of your home medications with the exception of your blood pressure medication - telmisartan-HCTZ. Your blood pressure was low-normal during your hospitalization without taking this medication. Please check your blood pressure daily at home and can consider restarting this medication if it is consistently >140/70. Please follow up with your PCP within 3-5 days. Follow up with Cardiology - Dr. Ward Recommend ablation therapy to help with this arrhythmia. Please obtain a sleep study to evaluate for sleep apnea. Your urine was noted to have bacteria and white blood cells, concerning for UTI. You reported having some urinary symptoms but unclear if worsened recently or has been more of a chronic issue. You are discharged with 5 days of antibiotic. Diet: ADA Activity: Ad ita Followup: Jean Carlos Haines MD [Primary Care Provider] - Time spent managing pt's care (in minutes): 45
[2021-02-15 16:55] VITALS: BP 110/52; TEMP 97.7
[2021-02-15 17:27] VITALS: O2SAT 96
--- NOTE | 2021-02-15 18:08 | CON ---
Date of Consultation: 02/15/2021 Reason For Consultation: Supraventricular tachycardia. History Of Present Illness: 80-year-old female, history of diabetes, hypothyroidism, SVT, hypertensi on, breast cancer, and sent to the emergency room by primary care physician due to heart rate being i n the 170. She was found to be in supraventricular tachycardia, responded to metoprolol, converted t o sinus rhythm and she has been in sinus rhythm since she apparently takes metoprolol 50 mg twice a d ay. She has this problem for about 50 years, however, she is having more frequent episodes now despi te the fact that she is on metoprolol. At this point, she is completely asymptomatic. No other card iac history. Past Medical History: As outlined above in the HPI. Medications: Refer to reconciliation sheet for detailed list. Allergies: NO KNOWN DRUG ALLERGIES. Family History: No premature coronary artery disease or cancer. Social History: Does not smoke or drink. Does not use any drugs. Review of Systems: All systems reviewed and they were negative except as mentioned in HPI. Physical Examination: Vital Signs: Reviewed. Head and Neck: Pupils are equal, reactive to light. Intact eye movements. No JVD. No cervical lym phadenopathy. Neck is supple. Thyroid is not enlarged. Lungs: Clear to auscultation bilaterally. No rhonchi, rales, or crackles. No accessory muscle use. Heart: Regular rate and rhythm. No extra sounds. Abdomen: Soft, nontender. Bowel sounds positive. No organomegaly. No masses or hernia. No rigidi ty or rebound. Extremities: No edema, clubbing, or cyanosis. Intact pulses. Skin: No rash. Neurologic: Alert, awake, oriented x3. No acute focal deficits appreciated. Investigations: Hemoglobin is 11.4. Creatinine is 0.93. TSH was 4.8. Troponin less than 0.02. Assessment/plan: Supraventricular tachycardia, back in sinus rhythm. Continue metoprolol. I agree with discharge today and I recommend supraventricular tachycardia ablation to be done, which we will arrange for that as an outpatient. The patient will follow up with me in the office and we will cons ult EP to arrange for supraventricular tachycardia ablation as she is having more frequent episodes d espite the fact she is on a good dose of beta christina. Case discussed with the primary care gabo dickinson SR/TEDDY Voice ID: [id number] Report ID: [id number]
== END 2021-02-15 18:12 | disposition home or self-care (01) ==
LOC: ER 11:14 → ERHOLD 16:26 → 2ND 21:36
PROVIDERS: ADMIT Hospitalist; ATTEND Hospitalist
DX: I47.1 Supraventricular tachycardia (principal); E11.40 Type 2 diabetes mellitus with diabetic neuropathy, unspecified; I10 Essential (primary) hypertension; E03.9 Hypothyroidism, unspecified; R82.71 Bacteriuria; Z85.3 Personal history of malignant neoplasm of breast; Z20.822 Contact with and (suspected) exposure to COVID-19
CPT/HCPCS: 96361; 93005 ×5; 87088; 85025 ×2; 87086; 80048; 36415; 83735 ×2; 85610; 80076; 84443; 87077; 87186; 84484; 84439; 80053; 83880; 71275; 71045; 94760 ×2; 96375; 96374; 99291; 99292; U0003; Q9967; J0153 ×2; J1650; J7040; J7030; G0378 ×2; 81003; 81015